=== PATIENT | female | born 1975 | race Two or more races ===

== ENCOUNTER 2020-04-27 08:46 | Outpatient (REF) | payer OTHER, SELFPAY | END 2020-04-27 08:47 | disposition home or self-care (01) | LOC: HO.LAB 08:46 | PROVIDERS: Visit Provider Internal Medicine | DX: Z20.828 Contact with and (suspected) exposure to other viral communicable diseases (principal) | CPT/HCPCS: C9803; U0003 ==

== ENCOUNTER 2020-05-11 13:03 | Outpatient (REF) | payer OTHER, SELFPAY | END 2020-05-11 13:04 | disposition home or self-care (01) | LOC: HO.LAB 13:03 | PROVIDERS: PCP Internal Medicine; Visit Provider Internal Medicine | DX: Z20.828 Contact with and (suspected) exposure to other viral communicable diseases (principal) | CPT/HCPCS: C9803; U0003 ==

== ENCOUNTER 2020-09-13 15:32 | Emergency (ER) | payer OTHER, SELFPAY ==
[2020-09-13 16:51] VITALS: BP 155/69; PULSE 85; RESP 18; TEMP 36.1; O2SAT 98; BMI 45.3
[2020-09-13 17:57] LABS: MANUAL DIFF FLAG NO
[2020-09-13 18:02] LABS: Glucose Urine UA NEG (NEG); Leukocyte Esterase Urine NEG (NEG); Nitrite Urine POS (NEG); PH 5.5 (5.0-8.0); Specific Gravity - Urine >= 1.030 (1.005-1.025); UACC Culture Trigger YES; Urine Blood NEG (NEG); Urine Ketones NEG (NEG); Urine Protein NEG (NEG-TRACE)
[2020-09-13 18:03] LABS: Appearance Urine CLEAR; Color Urine YELLOW; UPreg QC Valid YES; Urine Pregnancy NEGATIVE (NEGATIVE)
[2020-09-13 18:08] LABS: Bacteria Urine 2+ /LPF; Calcium Oxalate Crystals Urine 1+ /LPF; RBC Urine 0 /HPF (0); Squamous Epithelial Cell Urine 1+ /LPF; WBC Urine 0 /HPF (0-4)
[2020-09-13 18:24] LABS: Alanine Aminotransferase 13 U/L (0-31); Albumin Level 4.1 g/dL (3.5-5.0); Alkaline Phosphatase 76 U/L (39-117); Anion Gap 12 (12-20); Aspartate Amino Transferase 12 U/L (5-31); Basophils Percent Auto 0.5 % (0-2); Bilirubin Total 0.5 mg/dL (0.0-1.0); Blood Urea Nitrogen 10 mg/dL (9-16); Calcium 8.9 mg/dL (8.4-10.2); Carbon Dioxide 27 mmol/L (22-29); Chloride 104 mmol/L (96-108); Creatinine Clr Calc Pharmacy 117.3; Eosinophils Absolute Auto 0.2 X10*3/uL (0.0-0.4); Estimated Glomerular Filt Rate > 60; Glucose Random 93 mg/dL (60-115); Hematocrit 32.6 % (37-47); Hemoglobin 11.1 g/dl (12.0-16.0); Imm Gran Abs Auto 0.02 X10*3/uL (0.00-0.03); Imm Gran Pct Auto 0.3 % (0.0-0.4); Lipase 44 U/L (8-78); Lymphocytes Absolute Auto 2.6 X10*3/uL (1.2-4.9); Mean Corpuscular Volume 91.1 fL (80-98); Mean Platelet Volume 9.3 fL (9.4-12.3); Monocytes Absolute Auto 0.5 X10*3/uL (0.1-1.2); Monocytes Percent Auto 7.3 % (2-11); Neutrophils Absolute Auto 2.9 X10*3/uL (2.0-8.3); Neutrophils Percent Auto 46.9 % (45-73); Platelet Count 310 X10*3/uL (160-400); Potassium 3.6 mmol/L (3.3-5.1); Red Blood Count 3.58 X10*6/uL (4.20-5.50); Red Cell Distribution Width 12.7 % (11.0-16.0); Sodium 139 mmol/L (135-145); Total Protein 6.9 g/dL (6.5-8.0); White Blood Count 6.3 X10*3/uL (4.8-10.8)
== END 2020-09-13 20:10 | disposition left against medical advice (07) ==
LOC: HO.ED 20:11
PROVIDERS: Emergency Provider Emergency Medicine
DX: R10.9 Unspecified abdominal pain (principal); K59.00 Constipation, unspecified; I10 Essential (primary) hypertension
CPT/HCPCS: 36415; 80053; 81001; 81003; 81025; 83690; 85025; 87086; 87088; 87186; 99282; 99283

== ENCOUNTER → 2022-10-17 13:38 | Outpatient (BNVA) | payer OTHER, SELFPAY | PROVIDERS: PCP Internal Medicine; Visit Provider Physician Assistant Surgical ==

== ENCOUNTER → 2022-10-22 08:27 | Outpatient (BNVA) | payer OTHER, SELFPAY | PROVIDERS: PCP Internal Medicine; Visit Provider Surgery ==

== ENCOUNTER 2022-11-07 08:56 | Outpatient (REF) | payer OTHER, SELFPAY ==
--- NOTE | ~2022-11-07 | XR_ITS ---
EXAMINATION: XR CHEST CLINICAL INFORMATION: Obesity COMPARISON: None available. TECHNIQUE: 2 views of the chest were obtained. FINDINGS: No significant abnormality is noted involving the heart, lungs, mediastinum, bony thorax or soft tissues. XR/XR chest 2V IMPRESSION: Unremarkable examination.
--- NOTE | ~2022-11-07 | US_ITS ---
EXAMINATION: US COMPLETE ABDOMEN WITH LIVER ELASTOGRAPHY CLINICAL INFORMATION: Morbid obesity. COMPARISON: None available. TECHNIQUE: Real-time imaging of the abdominal viscera. Noninvasive ultrasound liver fibrosis assessment is performed using Lester ElastPQ point quantification shear wave elastography (2D-SWE) with a C5-2 MHz transducer. Multiple elastography samples are obtained. FINDINGS: PANCREAS: Limited. The visualized pancreatic head and proximal body are normal in appearance. The remainder of the pancreas is obscured from visualization by the overlying bowel gas. ABDOMINAL AORTA: The proximal, middle, and distal aortic segments are normal in caliber. INFERIOR VENA CAVA: Visualized portions are normal. LIVER: Normal. The liver demonstrates normal size, contour and echogenicity. No focal lesion or intrahepatic biliary duct dilatation. The right lobe measures 18.1 cm in length. The left lobe measures 15.3 cm in length. Portal flow is towards the liver (hepatopetal). Shear wave liver elastography median stiffness is 1.61 m/s (reference: normal median stiffness is 1.3 m/s or less). IQR/median stiffness to assess sampling precision is 0.08 (reference: good quality data set is IQR/median stiffness of 0.15 or less). GALLBLADDER: Normal. The gallbladder is physiologically distended without evidence of stones, sludge, polyps, wall thickening or pericholecystic fluid. COMMON BILE DUCT: Normal in caliber measuring 0.5 cm in diameter. RIGHT KIDNEY: Normal. No hydronephrosis. No renal calculi or focal parenchymal lesions. The kidney measures 10.7 cm in maximum dimension. LEFT KIDNEY: A 2.2 cm in maximal diameter benign, simple cyst is seen at the interpolar aspect of the left kidney. No hydronephrosis. No renal calculi or focal parenchymal lesions. The kidney measures 10.2 cm in maximum dimension. SPLEEN: Normal. The spleen measures 9.9 cm in maximum dimension. FREE FLUID: None. US/US abdomen comp w elastography IMPRESSION: 1. There is generalized increase in hepatic echotexture, consistent with fatty infiltration or hepatocellular disease. Please correlate clinically. No focal hepatic mass or intrahepatic biliary dilatation is seen. 2. Liver elastography: In the absence of other known clinical signs, measurements rule out compensated advanced chronic liver disease. If there are known clinical signs, further testing may be needed for confirmation. 3. A 2.2 cm benign, simple left renal cyst is seen, for which no imaging follow-up is recommended. REFERENCE: Society of Radiologists in Ultrasound Liver Stiffness Thresholds (2020): LIVER STIFFNESS THRESHOLDS: *Liver Stiffness equal or less than 1.3 m/s: High probability of being normal. *Liver Stiffness less than 1.7 m/s: In the absence of other known clinical signs, rules out compensated advanced chronic liver disease. *Liver Stiffness 1.7-2.1 m/s: Suggestive of compensated advanced chronic liver disease but need further test for confirmation. *Liver Stiffness over 2.1 m/s: Rules in compensated advanced chronic liver disease. *Liver Stiffness over 2.4 m/s: Suggestive of clinically significant portal hypertension. QUALITY OF DATA SET: *IQR/Median value equal or less than 0.15 implies a quality data set. *IQR/Median value over 0.15 implies a poor quality data set. SIGNIFICANT CHANGE FROM PRIOR EXAM: Significant change if liver stiffness measurement is 10% or greater from prior exam. OTHER CONSIDERATIONS: The stage of liver fibrosis may be overestimated in the setting of acute hepatitis, liver inflammation, elevated liver function tests, hepatic vascular congestion, obstructive cholestasis, non-fasting state, and infiltrative diseases such as amyloidosis and lymphoma. In some patients with NAFLD, the liver stiffness thresholds for compensated advanced chronic liver disease may be lower. In causes other than viral hepatitis and NAFLD, liver stiffness thresholds are not well established.
--- NOTE | 2022-11-07 09:00 | ECG_ITS ---
Test Reason : e66.01 Blood Pressure : / mmHG Vent. Rate : 077 BPM Atrial Rate : 077 BPM P-R Int : 152 ms QRS Dur : 082 ms QT Int : 386 ms P-R-T Axes : 073 028 044 degrees QTc Int : 436 ms Normal sinus rhythm Possible Anterior infarct , age undetermined Abnormal ECG No previous ECGs available Referred By: Ajay Orellana Electronically Signed By:Chapincito Brady
[2022-11-07 09:26] LABS: MANUAL DIFF FLAG NO
[2022-11-07 10:04] LABS: Basophils Absolute Auto 0.1 X10*3/uL (0.0-0.2); Basophils Percent Auto 0.7 % (0-2); Eosinophils Absolute Auto 0.1 X10*3/uL (0.0-0.4); Eosinophils Percent Auto 1.8 % (0-4); Hematocrit 38.9 % (37.0-47.0); Hemoglobin 12.9 g/dl (12.0-16.0); Imm Gran Abs Auto 0.02 X10*3/uL (0.00-0.03); Imm Gran Pct Auto 0.3 % (0.0-0.4); Lymphocytes Absolute Auto 2.3 X10*3/uL (1.2-4.9); Lymphocytes Percent Auto 31.8 % (20-40); Mean Corpuscular HGB Conc 33.2 g/dl (31.0-35.0); Mean Corpuscular Hemoglobin 29.8 pg (27.0-33.0); Mean Corpuscular Volume 89.8 fL (80.0-98.0); Mean Platelet Volume 9.4 fL (9.4-12.3); Monocytes Absolute Auto 0.5 X10*3/uL (0.1-1.2); Monocytes Percent Auto 6.6 % (2-11); Neutrophils Absolute Auto 4.2 x10*3/uL (2.0-8.3); Neutrophils Percent Auto 58.8 % (45-73); Platelet Count 269 X10*3/uL (160-400); Red Blood Count 4.33 X10*6/uL (4.20-5.50); Red Cell Distribution Width 13.1 % (11.0-16.0); White Blood Count 7.1 X10*3/uL (4.8-10.8)
[2022-11-07 10:11] LABS: Estimated Average Glucose 100 mg/dL; Hemoglobin A1c % 5.1 %
[2022-11-07 10:26] LABS: Alanine Aminotransferase 20 U/L (0-31); Albumin Level 4.2 g/dL (3.5-5.0); Alkaline Phosphatase 81 U/L (39-117); Anion Gap 12 (12-20); Aspartate Amino Transferase 16 U/L (5-31); Bilirubin Total 0.8 mg/dL (0.0-1.0); Blood Urea Nitrogen 14 mg/dL (9-16); C Reactive Protein 1.01 mg/dL (< or = 0.50); Calcium 9.7 mg/dL (8.4-10.2); Carbon Dioxide 24 mmol/L (22-29); Chloride 106 mmol/L (96-108); Cholesterol 203 mg/dL; Estimated Glomerular Filt Rate > 60; Glucose Random 94 mg/dL (60-115); HDL Cholesterol 42 mg/dL; Iron 94 mcg/dL (30-160); LDL Cholesterol Calculated 112 mg/dl; Percent Iron Saturation 27 % (15-50); Potassium 4.1 mmol/L (3.3-5.1); Sodium 138 mmol/L (135-145); Total Iron Binding Capacity 351 mcg/dL (228-428); Total Protein 7.3 g/dL (6.5-8.0); Triglycerides 245 mg/dL; Unsaturated Iron Binding 257 ug/dL
[2022-11-07 11:06] LABS: Ferritin 45 ng/mL (10-250); TSH reflex Free T4 1.01 uIU/mL (0.32-4.0); Vitamin B12 1881 pg/mL (200-900); Vitamin D 25-OH Total 26.2 ng/mL (>30)
[2022-11-07 11:46] LABS: Insulin 19 uU/mL (2-29)
[2022-11-08 22:24] LABS: Calcium (PTHI) 9.9 mg/dL (8.6-10.2); PTHI 30 pg/mL (16-77)
[2022-11-09 12:25] LABS: H Pylori Breath Test Negative (Negative)
[2022-11-11 15:28] LABS: Zinc 79 mcg/dL (60-130)
[2022-11-13 17:29] LABS: Vitamin A 43 mcg/dL (38-98)
[2022-11-14 15:23] LABS: Vitamin B1 9 nmol/L (8-30)
== END 2022-11-07 08:57 | disposition home or self-care (01) ==
LOC: HO.US 08:56
PROVIDERS: PCP Internal Medicine; Visit Provider Surgery
DX: E66.01 Morbid (severe) obesity due to excess calories (principal); G47.30 Sleep apnea, unspecified; I10 Essential (primary) hypertension
CPT/HCPCS: 36415; 71046; 76705; 76981; 80053; 80061; 82306; 82607; 82728; 82746; 83013; 83036; 83525; 83540; 83970; 84425; 84443; 84590; 84630; 85025; 86140; 93005; 99211

== ENCOUNTER → 2022-11-16 08:38 | Outpatient (BNVA) | payer OTHER, SELFPAY | PROVIDERS: PCP Internal Medicine; Visit Provider Surgery ==

== ENCOUNTER → 2022-11-19 08:53 | Outpatient (REF) | payer OTHER, SELFPAY ==
--- NOTE | ~2022-11-19 | NM_ITS ---
Myocardial perfusion study Indication: Exercise Myocardial perfusion study Indication: Abnormal EKG to evaluate for myocardial ischemia Technique: The patient was brought in for an exercise perfusion study on 11/19/2022. Patient performed exercise as per Magdy protocol and was injected 40 mCi of sestamibi was given intravenously one target HR was achieved. Images were obtained using the SPECT gamma camera interlaced with the gating device. Images were obtained in supine position. Resting perfusion study was performed on 11/22/2022. Patient was administered 40 mCi of sestamibi intravenously at rest. Images were then obtained in supine position. Images obtained with and without CT attenuation. Total DLP 207 mGy-cm. Images were processed with the software and compared side to side in short axis, horizontal long axis and vertical long axis views. Findings: The stress perfusion study showed non attenuated images show normal uptake of radiotracer in all segments of LV myocardium. Attenuated corrected images show mildly reduced uptake in the septum and the distal anterior and apical wall of the LV myocardium.. The gated study shows normal LV systolic function with calculated LVEF of 68%. LV cavity is normal in size. The gated study shows normal systolic wall thickening and contraction of all segments. There is no transient ischemic dilation. Resting study shows non attenuated images show overall normal uptake in the myocardium. Attenuated corrected images show uptake in the septum and distal anterior wall. Gating at rest reveals normal systolic wall motion with ejection fraction at 48%, although visually appears to be normal range. The findings are consistent with normal myocardial perfusion on non attenuated images. NM/NM gail perf SPECT rest & str Impression: 1. Normal myocardial perfusion 2. Gated LVEF is 68% 3. Transient ischemic dilatation not present Stress EKG is negative for ischemia
--- NOTE | 2022-11-19 08:55 | CA_ITS ---
Acquisition Time: 2022-11-19 09:09:49 Total Exercise Time: 00:05:00 Test Indications: ABN EKG Medications: SEE H Protocol: SURINDER Max HR: 155 BPM 90% of Pred: 172 BPM Max BP: 150/080 mmHG Max Work Load: 5.8 METS Exercise stress test with exercise 5 min of Surinder stage 1 ( with incline up to 12% for last 2 min and speed up to 2 MPH for last 45 sec) achieving 90% MPHR, 5.8 METs, with moderate shortness of breath and need to stop, no chest discomfort, without arrythmia, with normotensive response to exercise, without EKG changes meeting criteria for ischemia. Nuclear images pending. Test reviewed with Dr Rao. Referred By: Ajay Orellana Overread By: MARLON MARTINEZ
== END ==
LOC: HO.CARD 08:53
PROVIDERS: PCP Internal Medicine; Visit Provider Surgery
DX: R94.31 Abnormal electrocardiogram [ECG] [EKG] (principal)
CPT/HCPCS: 78452; 93017; A9500

== ENCOUNTER 2022-11-29 08:29 | Outpatient (REF) | payer OTHER, SELFPAY ==
--- NOTE | ~2022-11-29 | FL_ITS ---
EXAMINATION: XR FLUOROSCOPY UPPER GI WITH AIR CLINICAL INFORMATION: Morbid/severe obesity due to excess calories COMPARISON: None available. TECHNIQUE: Routine upper GI contrast study was performed. FINDINGS: Following oral administration of thick barium and effervescent granules, there is normal propagation involving the bolus from the oral cavity through the pharynx, esophagus into stomach without obstruction, narrowing or stricture. On placing patient supine and prone lying, the course, caliber and peristalsis of the stomach, duodenal bulb and sweep is normal. The mucosal pattern of the stomach and duodenum is normal. There is mild gastroesophageal reflux without hiatal hernia. FLUOROSCOPY TIME: 1.6 minutes DOSE AREA PRODUCT: 41.951 uGy-m2 (microgray-meter squared) FL/FL upper GI w air IMPRESSION: Mild gastroesophageal reflux without hiatal hernia.
== END 2022-11-29 08:30 | disposition home or self-care (01) ==
LOC: HO.XRAY 08:29
PROVIDERS: PCP Internal Medicine; Visit Provider Surgery
DX: E66.01 Morbid (severe) obesity due to excess calories (principal); G47.30 Sleep apnea, unspecified; I10 Essential (primary) hypertension
CPT/HCPCS: 74246

== ENCOUNTER 2022-12-03 16:12 | Outpatient (AMB) | payer OTHER, SELFPAY ==
--- NOTE | 2022-12-03 16:16 | MHC.WMTHER ---
Intake Intake Visit Reasons: VIDEO Intake Allergies acetaminophen [From Percocet] Adverse Reaction (Verified 11/07/22 10:41) Anxiety oxycodone [From Percocet] Adverse Reaction (Verified 11/07/22 10:41) Anxiety PFSH Medical History (Updated 11/07/22 @ 15:44 by Ajay Orellana MD) Hypertension Morbid obesity Sleep apnea Surgical History (Updated 10/17/22 @ 13:59 by MARCY Gaona) Hx of appendectomy Hx of section Hx of right knee surgery Hx of umbilical hernia repair Family History (Updated 10/17/22 @ 14:00 by MARCY Gaona) Mother No problems noted. Father Cancer Sister No problems noted. Sister No problems noted. Son No problems noted. Son No problems noted. Son No problems noted. Daughter No problems noted. Social History (Updated 10/17/22 @ 13:58 by MARCY Gaona) Alcohol intake: never Patient Tobacco Use Status: Never used Tobacco Behavioral Health Assessment Weight Management Therapy Therapy Notes Details PT is a 47 year old -Female who presents for assessment as part of surgical Weight-loss management program. PT denied any mental health diagnosis or even been in counseling services for herself; she disclosed past involvement in marriage therapy while went trough divorce. Also denies any concern with SI, self/other-harm, and/or any previous mental health crisis or past hospitalizations for mental health. PT denied emotional/stress eating and scores in BES showed minimal risk for binge eating. PT is cleared but will meet again for support with adjustment to meal plan, and habit change. Presenting Concerns Referral Source P Provider Reason for referral Completion of behavioral health assessment as part of process for weight-loss surgery. Precipitating Event Medical issues. Living Situation Current Living Situation Rent At risk of losing current housing? No Satisfied with current living situation? Yes Comments PT lives alone. Food/Weight/Diet Expectations of change PT wants to improve her health, and hopes to be at 150-170Lbs. (Unclear expectations) History/Relationship with food PT reports she loves food, as , she eats bread a lot. She always have 2-3 meals. Favorite meal is breakfast (eggs, rick, Wallisian muffin, coffee with cream and Splenda). Usually skip lunch. For dinner she would have chicken/rice/salad, tacos, fried foods. Was a soda drinker and she loves sweets, specially chocolate. Pt reports hx of desires to chew on something when stressed (usually eats tortilla chips or almonds). History/Relationship with weight She started gaining weight on mid 's after she started using the shot for control. But before that she was always under 140Lbs. In 2007 she was at 380Lbs. About a year ago she went down to 220Lbs, but started eating as usual again leading to weight gain. History/Relationship with dieting -Medical Weight management at [facility] in 2007, she was on medication combined with diet and exercise and was able to loss over 100Lbs. - Tried intermittent fasting, not eating after 5pm, diet/exercise. It has worked well for her but after couple months she goes back to normal eating habits. - She is following the meal plan, however on Sundays, when tired she feels she deserves a good meal so ari will have something different. Binge Eating Do you frequently eat large amounts of food in short periods of time, not feeling physically hungry? No Do you feel out of control when you eat a large amount of food in a short period of time? No Do you eat large amounts of food rapidly and typically alone? No Night Eating Do you wake up at least once during the night to eat? No If you wake up in the night, do you find that it is necessary to eat something in order to fall back asleep? No Do you have little or no appetite in the morning and feel very hungry in the evening, often overeating between dinner and when you go to bed? No Social History Family history and relationship from 3 years ago. She has 4 adult children (31, 29,23 and 20). They are working on re-building the relationship as separation was hard for everyone. Raised by maternal grandparents, both . Bio-mother is alive but she don't have communication. Bio-father and they had a great relationship. She has 2 sisters from mom's side, from dad's side she has 3 sisters. 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 Developmental history and status within normal limits. Social support Sister, some friends and comadre. Daughter who had bariatric surgery in august. Community support None. Anglican/Spirituality Roman Catholic. Cultural/Ethnic information . Born in [place]. Bilingual. Legal Involvement and History Current or historical involvement with the legal system? 10 years ago. Education Highest grade completed GED. 2 years College. Preferred learning style Learn by doing Currently enrolled in educational program? No Interested in further educational program? Yes (Would like to finish nursing degree but is not sure. 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 ) and Other ([employer].) Wants help to find employment? No Meaningful activities [place], travel, family activities. Financial Situation Describe current financial situation Occasional struggle Financial assistance? Food [place] Service Service? No Mental Health and Addiction Treatment Current/Past substance abuse? Yes Comments Used cannabis younger. Does vaping once in a while when stressed. (uses cannabis oil). Current/Past addictive behavior concerns? No Psychiatric history Never been in counseling individually, she went to couples counseling when she 3 years ago for couples sessions. Never hospitalized for mental health, and/or diagnosed with any MH disorder/illness. PT denies any hx of SI and/or Self/other-harm. Medical and Physical Health Summary Additional Medical History not covered in history None reported. Sexual History concerns None reported. Physical exam in the last year? Yes Pain Screening Current pain? No Pain in the last few months? No Medications Is the patient compliant with medications? Yes Does the patient have Torres Guardian in place? Not applicable Does the patient use complimentary health approaches? No Trauma/Abuse History History of trauma? No Questionnaires PHQ-9 Over the last 2 weeks, how often have you been bothered by any of the following problems? 1. Little interest or pleasure in doing things: not at all 2. Feeling down, depressed, or hopeless: not at all 3. Trouble falling or staying asleep, or sleeping too much: not at all 4. Feeling tired or having little energy: nearly every day 5. Poor appetite or overeating: not at all 6. Feeling bad about yourself - or that you are a failure or have let yourself or your family down: not at all 7. Trouble concentrating on things, such as reading the newspaper or watching television: not at all 8. Moving or speaking so slowly that other people could have noticed. Or the opposite - being so fidgety or restless that you have been moving around a lot more than usual: not at all 9. Thoughts that you would be better off or of hurting yourself in some way: not at all Total score: 3 Depression Screening Interpretation: Negative Source: Developed by Drs. Ulices Saucedo, Rebecca Appiah, Kasi Smith and colleagues, with an educational juju from [employer]. Binge Eating Scale Group 1 A. I don't feel self-conscious about my wt. or body size when I'm with others. B. I feel concerned about how I look to others, but it normally does not make me fell disappointed with myself C. I do get self-conscious about my appearance and wt. which makes me feel disappointed in myself. D. I feel very self-conscious about my wt. and frequently I feel intense shame and disgust for myself. I try to avoid social contacts because of my self-consciousness. Response Group 1: B Group 2 A. I don't have any difficulty eating slowly in the proper manner. B. Although I seem to gobble down foods, I don't end up feeling stuffed because of eating to much. C. At times, I tend to eat quickly and then, I feel uncomfortably full afterwards. D. I have the habit of bolting down my food, without really chewing it. When this happens I usually feel uncomfortably stuffed because I've eaten to much. Response Group 2: A Group 3 A. I feel capable to control my eating urges when I want to. B. I feel like I have failed to control my eating more than the average person. C. I feel utterly helpless when it comes to feeling in control of my eating urges. D. Because I feel so helpless about controlling my eating I have become very desperate about trying to get control. Response Group 3: A Group 4 A. I don't have the habit of eating when I'm bored. B. I sometimes eat when I'm bored, but often I'm able to get busy and get my mind off food. C. I have a regular habit of eating when I'm bored, but occasionally, I can use some other activity to get my mind off eating. D. I have a strong habit of eating when I'm bored. Nothing seems to help me breath the habit. Response Group 4: B Group 5 A. I'm usually physically hungry when I eat something. B. Occasionally, I eat something on impulse even though I really am not hungry. C. I have the regular habit of eating foods, that I might not really enjoy, to satisfy a hungry feeling even though physically, I don't need the food. D. Although I'm not physically hungry, I get a hungry feeling in my mouth that only seems to be satisfied when I eat a food, like sandwich, that fills my mouth. Sometimes, when I eat the food to satisfy my mouth hunger, I then spit the food out so I won't gain weight. Response Group 5: B Group 6 A. I don't feel any guilt or self-hate after I overeat. B. After I overeat, occasionally I feel guilt or self-hate. C. Almost all the time I experience strong guilt or self-hate after I overeat. Response Group 6: A Group 7 A. I don't lose total control of my eating when dieting even after periods when I overeat. B. Sometimes when I eat a forbidden food on a diet, I feel like I blew it and eat even more. C. Frequently, I have the habit of saying to myself, I've blown it now, why not go all the way, when I overeat on a diet. When that happens I eat more. D. I have a regular habit of starting a strict diets for myself but I break the diets by going on an eating binge. My life seems to be either a feast or famine. Response Group 7: A Group 8 A. I rarely eat so much food that I feel uncomfortably stuffed afterwards. B. Usually about once a month, I each such a quantity of food, I end up feeling very stuffed. C. I have regular periods during the month when I eat large amounts of food, either at mealtime or at snacks. D. I eat so much food that I regularly feel quite uncomfortable after eating and sometimes a bit nauseous. Response Group 8: C Group 9 A. My level of calorie intake does not go up very high or go down very low on a regular basis. B. Sometimes after I overeat, I will try to reduce my caloric intake to almost nothing to compensate for the excess calories I've eaten. C. I have a regular habit of overeating during the night. It seems that my routine is not to be hungry in the morning but overeat in the evening. D. In my adult years, I have had week-long periods where I practically starve myself. This follows periods when I overeat. It seems I live a life of either feast or famine. Response Group 9: A Group 10 A. I usually am able to stop eating when I want to. I know when enough is enough. B. Every so often, I experience a compulsion to eat which I can't seem to control. C. Frequently, I experience strong urges to eat which I seem unable to control, but at other times I can control my eating urges. D. I feel incapable of controlling urges to eat. I have a fear of not being able to stop eating voluntarily. Response Group 10: A Group 11 A. I don't have any problem stopping eating when I feel full. B. I usually can stop eating when I feel full but occasionally overeat leaving me feeling uncomfortably stuffed. C. I have a problem stopping eating once I start and usually I feel uncomfortably stuffed after I eat a meal. D. Because I have a problem not being able to stop eating when I want, I sometimes have to induce vomiting to relieve my stuffed feeling. Response Group 11: A Group 12 A. I seem to eat just as much when I'm with others, Family social gatherings as when I'm by myself. B. Sometimes, when I'm with other persons, I don't eat as much as I want to eat because I'm self-conscious about my eating. C. Frequently, I eat only a small amount of food when others are present, because I'm very embarrassed about my eating. D. I feel so ashamed about overeating that I pick times to overeat when I know no one will see me. I feel like a closet eater. Response Group 12: A Group 13 A. I eat three meals a day with only an occasional between meal snack. B. I eat 3 meals a day, but I also normally snack between meals. C. When I am snacking heavily, I get in the habit of skipping regular meals. D. There are regular periods when I seem to be continually eating, with no planned meals. Response Group 13: A (PT reports that none apply, as she has 2 meals at day, he skips lunch and doesn't snack. ) Group 15 A. I don't think about food a great deal. B. I have strong craving for food but they last only for brief periods of time. C. I have days when I can't seem to think about anything else but food. D. Most of my days seem to be pre-occupied with thoughts about food. I feel like I live to eat. Response Group 15: C Group 16 A. I usually know whether or not I'm physically hungry. I take the right portion of food to satisfy me. B. Occasionally, I feel uncertain about knowing whether or not I'm physically hungry. A these times it's hard to know how much food I should take to satisfy me. C. Even though I might know how many calories I should eat, I don't have any idea what is a normal amount of food for me. Response Group 16: A Binge Eating Score: 7 Score less than 17 Minimal Risk Score between 18-26 Moderate Risk Score between 27-46 High Risk Assessment & Plan Assessment & Plan (1) Adjustment disorder: Code(s): F43.20 - Adjustment disorder, unspecified Qualifiers: Adjustment disorder type: unspecified type Qualified Code(s): F43.20 - Adjustment disorder, unspecified Plan PT showers low scores in BES indicating minimal risk for binge eating behavior, also PHQ-9 did not showed any active depression and overall mental status exam is within normal limits. PT is cleared from the behavioral health stand point, however will F/up in 3-4 weeks for support with habit change and following meal plan. Telehealth Telehealth Location of provider rendering services: other (Home office. [place], [place].) Location of patient: address on file Patient Identification confirmed using: Name, : Yes Telehealth method: video Patient verbally consented to treatment: Yes Patient verbally consented to billing insurance company: Yes Patient informed of any privacy concerns related to visit: Yes Minutes spent on Phone/Video with Pt.: 50 Coding Level of Care Code New Pt Tele Psy Diag Eval ([id number]) Patient Type New Diagnoses Adjustment disorder F43.20 Adjustment disorder type: unspecified type Time Spent (min) 50 Comment 4:10-5:00pm
== END 2022-12-03 17:06 | disposition home or self-care (01) ==
LOC: HO.HBST 16:12
PROVIDERS: PCP Internal Medicine; Visit Provider Counselor Mental Health
DX: F43.20 Adjustment disorder, unspecified (principal)
CPT/HCPCS: 90791

== ENCOUNTER → 2022-12-03 16:12 | Outpatient (BNVA) | payer OTHER, SELFPAY | PROVIDERS: PCP Internal Medicine; Visit Provider Counselor Mental Health ==

== ENCOUNTER → 2022-12-10 10:58 | Outpatient (REF) | payer OTHER, SELFPAY ==
--- NOTE | 2022-12-10 11:00 | CA_ITS ---
Transthoracic Echocardiogram Patient (Last, First, Middle): Ewelina Rasmussen, Gender: Female Date of : 1975 Age: 47 Procedure Date: 12/10/2022 Procedure Type: Transthoracic Echocardiogram Location: OP Height: 157.48 cm Weight: 117.94 kg BSA: 2.14 m2 Heart Rate: bpm BP: 110 / 70 mmHg Sales Order Specialist: RENE Referring MD: Ajay Orellana MD Policewoman: Anam Garrido MD Symptoms: R94.31 - Abnormal electrocardiogram [ECG] [EKG] Study Quality: Fair ECG Rhythm: Sinus Conclusions: - 1. Normal LV systolic function with LVEF of 60 65% 2. Mildly dilated left atrium 3. Normal cardiac valvular Dopplers 4. Normal RV systolic pressure 5. No gross pericardial effusion Findings Left Ventricle Normal left ventricular size, thickness, and systolic function. The visually estimated ejection fraction is between 60-65%. Diastolic function is normal for age. Peak GLS is -21.7%, within normal limits Right Ventricle Normal right ventricular cavity size and systolic function. Atria The left atrium is mildly dilated. Interatrial shunt cannot be excluded. The right atrium is likely dilated. Aortic Valve Normal aortic valve structure and function. There is no aortic valve stenosis. There is no aortic valve regurgitation. Mitral Valve Normal mitral valve structure and function. There is trace mitral valve regurgitation. There is no mitral valve stenosis. Pulmonic Valve The pulmonic valve was not well visualized. Tricuspid Valve Normal tricuspid valve structure. There is trace tricuspid valve regurgitation. The right ventricular systolic pressure is normal. The right ventricular systolic pressure is 22 mmHg. Normal right atrial pressure. There is no evidence of pulmonary hypertension. Great Vessels All visible segments of the aorta are normal in size. The pulmonary artery was not well visualized. Venous The inferior vena cava is normal in size and collapses greater than 50% with inspiration. Pericardium/Pleural There is no evidence of pericardial effusion. Prior Study Comparison No prior study available for comparison. Recommendations, Care & Conclusions Recommend contrast study to evaluate intracardiac shunting. Measurements 2D Linear Measurements IVSd: 1.01 0.6-0.9/0.6-1.0 cm LVIDd: 4.74 3.9-5.3/4.2-5.9 cm LVIDd Index: 2.21 2.4-3.2/2.2-3.1 cm/m2 LVIDs: 2.97 2.0-3.6 cm LVPWd: 1.04 0.7-1.1 cm LA Diam: 3.40 2.7-3.8/3.0-4.0 cm LAIDs Index: 1.59 1.5-2.3 cm/m2 LV Mass: 214.81 67-162/88-224 g LV Mass Index: 100.38 43-95/49-115 g/m2 LVOT Diam: 2.10 3.0+(-)1.3 cm 2D Systolic Function EF 4C: 57.60 >55% EF 2C: 65.10 >55% EF BiP: 61.90 >55% Mitral Valve MV Pk E: 1.04 MV PK A: 0.95 MV Decel Time: 195.00 E/A: 1.10 E'Lateral: 12.00 E'Medial: 7.94 E/E' Med: 13.10 E/E' Lat: 8.70 PHT: 57.00 MVA PHT: 3.86 Decel [place]: 5.34 Aortic Valve AoV Pk Demetrio: 1.49 AoV Mn Demetrio: 1.07 AoV VTI: 0.34 AoV Pk Grad: 9.00 Aov Mn Grad: 5.00 DAMIAN Cont.VTI: 2.30 LVOT LVOT Pk Demetrio: 1.00 LVOT Mn Demetrio: 0.70 LVOT VTI: 0.23 LVOT Pk Grad: 4.00 LVOT Mn Grad: 2.00 LVOT Diam: 2.10 LVOT Area: 3.46 Diastolic Function MV Pk E: 1.04 MV Pk A: 0.95 E/A: 1.10 E'Medial: 7.94 E/E' Med: 13.10 E' Laterial: 12.00 E/E' Lat: 8.70 Right Ventricle TAPSE (mm): 27.80 TVS' Demetrio: 16.20 Tricuspid Valve TR Pk Demetrio: 2.19 TR Pk Grad: 19.00 RA Press: 3.00 RVSP: 22.00 Great Vessels Aorta Sinus of Valsalva: 3.26 2.0-3.[address] [place]: 2.48 1.7-3.4 cm Ao Asc: 3.10 2.1-3.4 cm Updated in Other Vendor System with Status of Final Anam Garrido MD electronically signed on 12/11/2022 12:11:27 PM with status of Final
== END ==
LOC: HO.CARD 10:58
PROVIDERS: PCP Internal Medicine; Visit Provider Surgery
DX: R94.31 Abnormal electrocardiogram [ECG] [EKG] (principal)
CPT/HCPCS: 93306; 93356

== ENCOUNTER → 2022-12-10 11:00 | Outpatient (BNV) | payer OTHER, SELFPAY | PROVIDERS: PCP Internal Medicine; Visit Provider Internal Medicine Cardiovascular Disease | DX: R94.31 Abnormal electrocardiogram [ECG] [EKG] (principal) | CPT/HCPCS: 93306 ==

== ENCOUNTER → 2022-12-26 09:58 | Outpatient (REF) | payer OTHER, SELFPAY ==
--- NOTE | 2022-12-26 10:01 | CA_ITS ---
Transthoracic Echocardiogram Limited Patient (Last, First, Middle): Ewelina Rasmussen, Gender: Female Date of : 1975 Age: 47 Procedure Date: 12/26/2022 Procedure Type: Transthoracic Echocardiogram Limited Location: OP Height: 157.48 cm Weight: 117.94 kg BSA: 2.14 m2 Heart Rate: 69 bpm BP: 115 / 65 mmHg Tapper Helper: MARIIA Referring MD: Siva GRAHAM Service Order Dispatcher: Anam Garrido MD Symptoms: R94.31 - Abnormal electrocardiogram [ECG] [EKG] Study Quality: Adequate/Limited with Bubble study ECG Rhythm: Sinus Conclusions: - No clear evidence of PFO Findings Atria There is no evidence of interatrial shunt by agitated saline. Updated in Other Vendor System with Status of Final Anam Garrido MD electronically signed on 12/27/2022 12:43:07 PM with status of Final
== END ==
LOC: HO.CARD 09:58
PROVIDERS: PCP Internal Medicine; Visit Provider Physician Assistant Surgical
DX: R94.31 Abnormal electrocardiogram [ECG] [EKG] (principal)
CPT/HCPCS: 93308

== ENCOUNTER → 2022-12-26 10:01 | Outpatient (BNV) | payer OTHER, SELFPAY | PROVIDERS: PCP Internal Medicine; Visit Provider Internal Medicine Cardiovascular Disease | DX: R94.31 Abnormal electrocardiogram [ECG] [EKG] (principal) | CPT/HCPCS: 93308 ==

== ENCOUNTER 2023-01-09 13:00 | Outpatient (AMB) | payer OTHER, SELFPAY ==
--- NOTE | 2023-01-09 13:08 | A.OFFWM_ITS ---
Intake Intake Visit Reasons: VIDEO f/u Allergies acetaminophen [From Percocet] Adverse Reaction (Verified 11/07/22 10:41) Anxiety oxycodone [From Percocet] Adverse Reaction (Verified 11/07/22 10:41) Anxiety PFSH Medical History (Updated 11/07/22 @ 15:44 by Ajay Orellana MD) Hypertension Morbid obesity Sleep apnea Surgical History (Updated 10/17/22 @ 13:59 by MARCY Gaona) Hx of appendectomy Hx of section Hx of right knee surgery Hx of umbilical hernia repair Family History (Updated 10/17/22 @ 14:00 by MARCY Gaona) Mother No problems noted. Father Cancer Sister No problems noted. Sister No problems noted. Son No problems noted. Son No problems noted. Son No problems noted. Daughter No problems noted. Social History (Updated 10/17/22 @ 13:58 by MARCY Gaona) Alcohol intake: never Patient Tobacco Use Status: Never used Tobacco Behavioral Health Assessment Weight Management Therapy Therapy Notes Details PT presents for a follow up. PT reports she feels stressed, she has been traveling so her diet/exercise plan has been affected, as she's not been exercising regularly. INTERVENTIONS: Active listening, processed barriers to commit to meal plan and exercise routine, validated feelings while gently challenge her goals vs expe ctations. Problem solving exercise creating ideas about how she can remain consistent while traveling. Processed stresors around recent study and recommended to share with doctor concerns and ask for these results. RESPONSE: open and engaged. PT created a plan for this week to get back to healthy habits. Also, shared ideas to remain consistent at the next trip in couple days. PLAN: F/up in about a month. PT is cleared but will meet again for support with adjustment to meal plan, and habit change. Presenting Concerns Referral Source WMP Provider Reason for referral Completion of behavioral health assessment as part of process for weight-loss surgery. Precipitating Event Medical issues. Living Situation Current Living Situation Rent At risk of losing current housing? No Satisfied with current living situation? Yes Comments PT lives alone. Food/Weight/Diet Expectations of change PT wants to improve her health, and hopes to be at 150- 170Lbs. (Unclear expectations) History/Relationship with food PT reports she loves food, as , she eats bread a lot. She always have 2-3 meals. Favorite meal is breakfast (eggs, rick, Indonesian muffin, coffee with cream and Splenda). Usually skip lunch. For dinner she would have chicken/rice/salad, tacos, fried foods. Was a soda drinker and she loves sweets, specially chocolate. Pt reports hx of desires to chew on something when stressed (usually eats tortilla chips or almonds). History/Relationship with weight She started gaining weight on mid 's after she started using the shot for control. But before that she was always under 140Lbs. In 2007 she was at 380Lbs. About a year ago she went down to 220Lbs, but started eating as usual again leading to weight gain. History/Relationship with dieting -Medical Weight management at [facility] in 2007, she was on medication combined with diet and exercise and was able to loss over 100Lbs. - Tried intermittent fasting, not eating after 5pm, diet/exercise. It has worked well for her but after couple months she goes back to normal eating habits. - She is following the meal plan, however on Sundays, when tired she feels she deserves a good meal so ari will have something different. Binge Eating Do you frequently eat large amounts of food in short periods of time, not feeling physically hungry? No Do you feel out of control when you eat a large amount of food in a short period of time? No Do you eat large amounts of food rapidly and typically alone? No Night Eating Do you wake up at least once during the night to eat? No If you wake up in the night, do you find that it is necessary to eat something in order to fall back asleep? No Do you have little or no appetite in the morning and feel very hungry in the evening, often overeating between dinner and when you go to bed? No Social History Family history and relationship from 3 years ago. She has 4 adult children (31, 29,23 and 20). They are working on re-building the relationship as separation was hard for everyone. Raised by maternal grandparents, both . Bio-mother is alive but she don't have communication. Bio-father and they had a great relationship. She has 2 sisters from mom's side, from dad's side she has 3 sisters. Parental/Familial pharmacy informaticist obligations None. Developmental history and status within normal limits. Social support Sister, some friends and comadre. Daughter who had bariatric surgery in august. Community support None. [employer]. Cultural/Ethnic information . Born in [place]. Bilingual. Legal Involvement and History Current or historical involvement with the legal system? 10 years ago. Education Highest grade completed GED. 2 years College. Preferred learning style Learn by doing Currently enrolled in educational program? No Interested in further educational program? Yes (Would like to finish nursing degree but is not sure. 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 ) and Other ([employer].) Wants help to find employment? No Meaningful activities [place], travel, family activities. Financial Situation Describe current financial situation Occasional struggle Financial assistance? Food [place] Service Service? No Mental Health and Addiction Treatment Current/Past substance abuse? Yes Comments Used cannabis younger. Does vaping once in a while when stressed. (uses cannabis oil). Current/Past addictive behavior concerns? No Psychiatric history Never been in counseling individually, she went to couples counseling when she 3 years ago for couples sessions. Never hospitalized for mental health, and/or diagnosed with any MH disorder/illness. PT denies any hx of SI and/or Self/other-harm. Medical and Physical Health Summary0 Additional Medical History not covered in history None reported. Sexual History concerns None reported. Physical exam in the last year? Yes Pain Screening Current pain? No Pain in the last few months? No Medications Is the patient compliant with medications? Yes Does the patient have Torres Guardian in place? Not applicable Does the patient use complimentary health approaches? No Trauma/Abuse History History of trauma? No Assessment & Plan Assessment & Plan (1) Adjustment disorder: Code(s): F43.20 - Adjustment disorder, unspecified Qualifiers: Adjustment disorder type: unspecified type Qualified Code(s): F43.20 - Adjustment disorder, unspecified Plan PT is cleared from the behavioral health stand point, however will F/up in about a month for support with habit change and following meal plan. Telehealth Telehealth Location of provider rendering services: other (Home office. [place], [place].) Location of patient: address on file Patient Identification confirmed using: Name, : Yes Telehealth method: video Patient verbally consented to treatment: Yes Patient verbally consented to billing insurance company: Yes Patient informed of any privacy concerns related to visit: Yes Minutes spent on Phone/Video with Pt.: 45 Coding Level of Care Code Established Pt Tele Psytx 45 mins (32925) Patient Type Established Diagnoses Adjustment disorder F43.20 Adjustment disorder type: unspecified type Time Spent (min) 45 Comment 1:00-1:45pm
== END 2023-01-09 13:50 | disposition home or self-care (01) ==
LOC: HO.HBST 13:06
PROVIDERS: PCP Internal Medicine; Visit Provider Counselor Mental Health
DX: F43.20 Adjustment disorder, unspecified (principal)
CPT/HCPCS: 90834

== ENCOUNTER → 2023-01-09 13:00 | Outpatient (BNVA) | payer OTHER, SELFPAY | PROVIDERS: PCP Internal Medicine; Visit Provider Counselor Mental Health ==

== ENCOUNTER 2023-01-10 13:37 | Outpatient (AMB) | payer OTHER, SELFPAY ==
--- NOTE | 2023-01-10 13:06 | A.OFFVIS_ITS ---
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 she likes hilario bars and shakes, has no concerns or issues today. SW online classes: completed she knows she has to give up coffee immediately after surgery and is OK with it. Pt emotional as she speaks about her concerns with her cardiac testing. Her sister 3 days after her bariatric surgery as a result of a heart attack Previous weight loss methods attempted 2009 was nearly 400# and went to [facility] - took Adipex and went from size 48 to size 13 . ended up gained the weight back due to emotional eating later. [facility] Dietary counseling reduction Meal frequency regular: breakfast, dinner (chicken, salad ) and snacks and never: lunch Lifestyle Eating out 4 or more times/week (every meal ) Food frequency Fruit: daily, Vegetables: daily, Grains/pasta/breads/cereal (carbs): daily, Meats/poultry/fish (protein): daily, Meat substitutes/nuts/seeds/legumes: daily, Water: daily (with lemon and mint ), Soda: never, Juice: never and Coffee: daily (coffee once daily in the AM and tea ) Diagnosis Nutrition problem #1 overweight/obesity As related to (etiology) #1 excess energy intake and physical inactivity As evidenced by (sign/symptom) #1 high BMI Monitoring/Goals Nutrition problem monitoring total energy intake, level of knowledge/skill, total PRO intake, total CHO intake and weight Outcome progress progressing Learning/Education Readiness to learn excellent Stages of change action Educational materials provided Yes Most Recent Diabetes Results: No Data to Display [facility] Medical History (Updated 11/07/22 @ 15:44 by Ajay Orellana MD) Hypertension Morbid obesity Sleep apnea Surgical History (Updated 10/17/22 @ 13:59 by MARCY Gaona) Hx of appendectomy Hx of section Hx of right knee surgery Hx of umbilical hernia repair Family History (Updated 10/17/22 @ 14:00 by MARCY Gaona) Mother No problems noted. Father Cancer Sister No problems noted. Sister No problems noted. Son No problems noted. Son No problems noted. Son No problems noted. Daughter No problems noted. Social History (Updated 10/17/22 @ 13:58 by MARCY Gaona) Alcohol intake: never Patient Tobacco Use Status: Never used Tobacco Assessment & Plan Assessment & Plan (1) Morbid obesity: Code(s): E66.01 - Morbid (severe) obesity due to excess calories Patient Instructions: Patient is cleared from a nutrition standpoint for bariatric surgery. Educational requirements have been completed. Reviewed vitamin supplementation and commitment to protein shake for several months post surgery. Encouraged communication with office as needed Telehealth Telehealth Location of provider rendering services: practice address Location of patient: other (car, parked) Patient Identification confirmed using: Name, : Yes Telehealth method: video Patient verbally consented to treatment: Yes Patient verbally consented to billing insurance company: Yes Patient informed of any privacy concerns related to visit: Yes Minutes spent on Phone/Video with Pt.: 30 Coding Level of Care Code Nutr Indiv Intake (97382) Diagnoses Morbid obesity E66.01 Time Spent (min) 35
== END 2023-01-10 13:42 | disposition home or self-care (01) ==
LOC: HO.HBS 13:37
PROVIDERS: PCP Internal Medicine; Visit Provider Dietitian, Registered
DX: E66.01 Morbid (severe) obesity due to excess calories (principal)

== ENCOUNTER → 2023-01-10 13:37 | Outpatient (BNVA) | payer OTHER, SELFPAY | PROVIDERS: PCP Internal Medicine; Visit Provider Dietitian, Registered | DX: E66.01 Morbid (severe) obesity due to excess calories (principal); Z71.3 Dietary counseling and surveillance | CPT/HCPCS: 97802 ==

== ENCOUNTER 2023-01-11 10:03 | Outpatient (AMB) | payer OTHER, SELFPAY ==
--- NOTE | 2023-01-11 18:05 | A.OFFVIS_ITS ---
Intake VS Expanded 01/11/23 18:10 Height 5 ft 2 in Weight 260 lb BMI 47.5 Body Fat 168.7 Body Fat Percentage 64.9 Free Fat Mass 91.2 Visceral Mass 29 Water Mass 62.4 BMR 1,259 Intake Visit Reasons: TV Follow Up SWL Allergies acetaminophen [From Percocet] Adverse Reaction (Verified 11/07/22 10:41) Anxiety oxycodone [From Percocet] Adverse Reaction (Verified 11/07/22 10:41) Anxiety HPI TV Follow Up SWL HPI Details Start time: 12.20pm, End time: 12.40pm I spent 15 minutes speaking with the patient on the phone plus an additional 5 minutes reviewing and updating records for a total of 20 minutes HPI Comments History of Present Illness Details Overall weight loss: 7.2lbs, or 2.69% TBWL Was on vacation and was not able to follow the plan correctly [facility] Medical History (Updated 11/07/22 @ 15:44 by Ajay Orellana MD) Hypertension Morbid obesity Sleep apnea Surgical History (Updated 10/17/22 @ 13:59 by MARCY Gaona) Hx of appendectomy Hx of section Hx of right knee surgery Hx of umbilical hernia repair Family History (Updated 10/17/22 @ 14:00 by MARCY Gaona) Mother No problems noted. Father Cancer Sister No problems noted. Sister No problems noted. Son No problems noted. Son No problems noted. Son No problems noted. Daughter No problems noted. Social History (Updated 10/17/22 @ 13:58 by MARCY Gaona) Alcohol intake: never Patient Tobacco Use Status: Never used Tobacco Assessment & Plan Assessment & Plan (1) Morbid obesity: Code(s): E66.01 - Morbid (severe) obesity due to excess calories Plan: 1. Start with 2 Pure protein shakes with 1/2 scoop in 8oz almond milk each, 3 Zone Perfect protein bars and one meal (7 forks of meat and 7 forks of salad or vegetables) 2. Walk daily, preferably uphill for 300 calories per day, daily 3. Send me weight measurements as soon as you return from vacation Telehealth Telehealth Location of provider rendering services: practice address Location of patient: address on file Patient Identification confirmed using: Name, : Yes Telehealth method: voice only Patient verbally consented to treatment: Yes Patient verbally consented to billing insurance company: Yes Patient informed of any privacy concerns related to visit: Yes Minutes spent on Phone/Video with Pt.: 20 Coding Level of Care Code Tele Est Pt Level 3 (64763) Diagnoses Morbid obesity E66.01 Time Spent (min) 20
[2023-01-11 18:10] VITALS: BMI 47.5
== END 2023-01-11 18:23 | disposition home or self-care (01) ==
LOC: HO.HBS 10:03
PROVIDERS: PCP Internal Medicine; Visit Provider Surgery
DX: E66.01 Morbid (severe) obesity due to excess calories (principal); Z68.42 Body mass index [BMI] 45.0-49.9, adult
CPT/HCPCS: 99213

== ENCOUNTER → 2023-01-11 10:03 | Outpatient (BNVA) | payer OTHER, SELFPAY | PROVIDERS: PCP Internal Medicine; Visit Provider Surgery | DX: E66.01 Morbid (severe) obesity due to excess calories (principal); I10 Essential (primary) hypertension; G47.30 Sleep apnea, unspecified ==

== ENCOUNTER 2023-02-08 08:10 | Outpatient (AMB) | payer OTHER, SELFPAY ==
--- NOTE | 2023-02-05 15:02 | MHC.OFFVISWM ---
Intake VS Expanded 02/05/23 15:03 Height 5 ft 2 in Weight 261 lb 4 oz BMI 47.8 Body Fat 170.6 Body Fat Percentage 65.3 Free Fat Mass 90.8 Visceral Mass 29 Water Mass 62.2 BMR 1,266 Intake Visit Reasons: TV Follow Up SWL Allergies acetaminophen [From Percocet] Adverse Reaction (Verified 11/07/22 10:41) Anxiety oxycodone [From Percocet] Adverse Reaction (Verified 11/07/22 10:41) Anxiety HPI TV Follow Up SWL HPI Details Start time: 1pm, End time: 1.30pm I spent 25 minutes speaking with the patient on the phone plus an additional 5 minutes reviewing and updating records for a total of 30 minutes HPI Comments History of Present Illness Details Overall weight loss: 5.8lbs, or 2.17% TBWL Was ill and was not able to follow the nutritional plan or exercise [facility] Medical History (Updated 11/07/22 @ 15:44 by Ajay Orellana MD) Sleep apnea Morbid obesity Hypertension Surgical History (Updated 10/17/22 @ 13:59 by MARCY Gaona) Hx of right knee surgery Hx of umbilical hernia repair Hx of appendectomy Hx of section Family History (Updated 10/17/22 @ 14:00 by MARCY Gaona) Mother No problems noted. Father Cancer Sister No problems noted. Sister No problems noted. Son No problems noted. Son No problems noted. Son No problems noted. Daughter No problems noted. Social History (Updated 10/17/22 @ 13:58 by MARCY Gaona) Alcohol intake: never Patient Tobacco Use Status: Never used Tobacco Physical Exam Vital Signs: BMI result Body Mass Index 47.8 Assessment & Plan Assessment & Plan (1) Morbid obesity: Code(s): E66.01 - Morbid (severe) obesity due to excess calories Plan: 1. Start with 2 Pure protein shakes with 1/2 scoop in 8oz almond milk each at 5am-7am and 8am-10am, 2 Zone Perfect protein bars at 11am-1pm and 2pm-4pm, one meal at 5pm (7 forks of meat and 7 forks of salad or vegetables) and one more Zone Perfect protein bar at 7pm-9pm. 2. Walk daily, preferably uphill for 300 calories per day, daily 3. Alternatively purchase a stationary bike, elliptical or treadmill at home that can track calories. Let me know if you do so I can give you an exercise plan. 4. Send me weight measurements weekly on Sundays Telehealth Telehealth Location of provider rendering services: practice address Location of patient: address on file Patient Identification confirmed using: Name, : Yes Telehealth method: voice only Patient verbally consented to treatment: Yes Patient verbally consented to billing insurance company: Yes Patient informed of any privacy concerns related to visit: Yes Minutes spent on Phone/Video with Pt.: 30 Coding Level of Care Code Tele Est Pt Level 4 (49094) Diagnoses Morbid obesity E66.01 Time Spent (min) 30
[2023-02-05 15:03] VITALS: BMI 47.8
== END 2023-02-08 14:53 | disposition home or self-care (01) ==
LOC: HO.HBS 08:11
PROVIDERS: PCP Internal Medicine; Visit Provider Surgery
DX: E66.01 Morbid (severe) obesity due to excess calories (principal); Z68.42 Body mass index [BMI] 45.0-49.9, adult
CPT/HCPCS: 99213

== ENCOUNTER → 2023-02-08 08:10 | Outpatient (BNVA) | payer OTHER, SELFPAY | PROVIDERS: PCP Internal Medicine; Visit Provider Surgery ==

== ENCOUNTER 2023-03-04 07:59 | Outpatient (AMB) | payer OTHER, SELFPAY ==
--- NOTE | 2023-03-04 08:22 | MHC.OFFVISWM ---
Intake VS Expanded 03/04/23 08:33 Height 5 ft 2 in Weight 253 lb 6 oz BMI 46.3 Body Fat % 63.1 Body Fat Mass 160 Fat Free Mass 93.6 Visceral Fat Rating 27 Body Water % 25.3 Body Water Mass 64.1 Basal Metabolic Rate/Score 1,280 Intake Visit Reasons: TV Follow Up SWL Allergies acetaminophen [From Percocet] Adverse Reaction (Verified 11/07/22 10:41) Anxiety oxycodone [From Percocet] Adverse Reaction (Verified 11/07/22 10:41) Anxiety HPI TV Follow Up SWL HPI Details Start time: 8.20am, End time: 8.43am ?I spent 18 minutes speaking with the patient on the phone plus an additional 5 minutes reviewing and updating records for a total of 23 minutes HPI Comments History of Present Illness Details Overall weight loss: 14.8lbs or 5.54% TBWL Is doing 2 Pure protein shakes with 1/2 scoop in 8oz almond milk each, 1-2 Zone Perfect protein bars and one meal (7 forks of meat and 7 forks of salad or vegetables) Exercise: going to Gym x5/week doing Elliptical for 300-350 calories PFSH Medical History (Updated 11/07/22 @ 15:44 by Ajay Orellana MD) Sleep apnea Morbid obesity Hypertension Surgical History (Updated 10/17/22 @ 13:59 by MARCY Gaona) Hx of right knee surgery Hx of umbilical hernia repair Hx of appendectomy Hx of section Family History (Updated 10/17/22 @ 14:00 by MARCY Gaona) Mother No problems noted. Father Cancer Sister No problems noted. Sister No problems noted. Son No problems noted. Son No problems noted. Son No problems noted. Daughter No problems noted. Social History (Updated 10/17/22 @ 13:58 by MARCY Gaona) Alcohol intake: never Patient Tobacco Use Status: Never used Tobacco Assessment & Plan Assessment & Plan (1) Morbid obesity: Code(s): E66.01 - Morbid (severe) obesity due to excess calories Plan: 1. Continue with 2 Pure protein shakes with 1/2 scoop in 8oz almond milk each, 3 Zone Perfect protein bars and one meal (7 forks of meat and 7 forks of salad or vegetables) 2. Increase Elliptical to 400 calories per day, 5 days per week. Goal is to burn 2000 calories per week. If you feel tired, reduce the level at the Elliptical at 12 so you can be able to burn the 400 calories 3. Continue to send me weight measurements weekly on Saturdays. Telehealth Telehealth Location of provider rendering services: practice address Location of patient: address on file Patient Identification confirmed using: Name, : Yes Telehealth method: voice only Patient verbally consented to treatment: Yes Patient verbally consented to billing insurance company: Yes Patient informed of any privacy concerns related to visit: Yes Minutes spent on Phone/Video with Pt.: 23 Coding Level of Care Code Tele Est Pt Level 3 (52251) Diagnoses Morbid obesity E66.01 Time Spent (min) 23
[2023-03-04 08:33] VITALS: BMI 46.3
== END 2023-03-04 08:43 | disposition home or self-care (01) ==
LOC: HO.HBS 07:59
PROVIDERS: PCP Internal Medicine; Visit Provider Surgery
DX: E66.01 Morbid (severe) obesity due to excess calories (principal); Z68.42 Body mass index [BMI] 45.0-49.9, adult
CPT/HCPCS: 99213

== ENCOUNTER → 2023-03-04 07:59 | Outpatient (BNVA) | payer OTHER, SELFPAY | PROVIDERS: PCP Internal Medicine; Visit Provider Surgery ==

== ENCOUNTER 2023-03-22 07:52 | Outpatient (AMB) | payer OTHER, SELFPAY ==
--- NOTE | 2023-03-22 10:48 | A.OFFVIS_ITS ---
Intake VS Expanded 03/22/23 11:02 Height 5 ft 2 in Weight 247 lb 4 oz BMI 45.2 Body Fat % 61.3 Body Fat Mass 151.6 Fat Free Mass 95.8 Visceral Fat Rating 27 Body Water % 26.5 Body Water Mass 65.5 Basal Metabolic Rate/Score 1,298 Intake Visit Reasons: TV Pre Op LSG 04/02/23 Allergies oxycodone [From Percocet] Adverse Reaction (Verified 11/07/22 10:41) Anxiety Medication List - Last Reconciled 03/22/23 by Ajay Orellana MD [FISH OIL W/ OMEGA 3 PO] [IRON PO] [MAGNESIUM CITRATE PO] olmesartan-hydrochlorothiazide 20-12.5 mg 1 tab PO DAILY ondansetron 4 mg PO Q12H pantoprazole 40 mg PO DAILY polyethylene glycol 3350 (Miralax) 17 grams PO DAILY sucralfate 10 mL PO BID [VITAMIN B12 PO] [VITAMIN D 50,000 multiple units PO QWEEK] HPI TV Pre Op LSG 04/02/23 HPI Details Start time: 10.41am, End time: 11.11am ?I spent 25 minutes speaking with the patient on the phone plus an additional 5 minutes reviewing and updating records for a total of 30 minutes HPI Comments History of Present Illness Details Overall weight loss: 19.8lbs, or 7.41% TBWL Is doing 2 Pure protein shakes (1/2 scoop in almond milk), 1-1.5 Zone Perfect protein bars and one meal (10 forks of protein and 10 forks of salad or vegetables) Exercise: Exercise bike at home PFSH Medical History (Updated 11/07/22 @ 15:44 by Ajay Orellana MD) Sleep apnea Morbid obesity Hypertension Surgical History (Updated 10/17/22 @ 13:59 by MARCY Gaona) Hx of right knee surgery Hx of umbilical hernia repair Hx of appendectomy Hx of section Family History (Updated 10/17/22 @ 14:00 by MARCY Gaona) Mother No problems noted. Father Cancer Sister No problems noted. Sister No problems noted. Son No problems noted. Son No problems noted. Son No problems noted. Daughter No problems noted. Social History (Updated 10/17/22 @ 13:58 by Ness Sulewski, RMA) Alcohol intake: never Patient Tobacco Use Status: Never used Tobacco Assessment & Plan Assessment & Plan (1) Hypertension: Code(s): I10 - Essential (primary) hypertension (2) Morbid obesity: Code(s): E66.01 - Morbid (severe) obesity due to excess calories Plan: 1. Plan for lap sleeve gastrectomy including upper GI endoscopy. All tests has been completed and reviewed and the patient is cleared for the surgery. ?If diaphragmatic or ventral hernias are present at time of surgery, these will be repaired laparoscopically as well. Risks and complications were discussed in detail including possible conversion to an open procedure, anastomotic leak, bleeding requiring transfusion, small bowel obstruction, , DVT and pulmonary embolism, cardiac, or pulmonary complications, as nursing home complications such as anastomotic ulcer, insufficient weight loss and vitamin deficiencies. I emphasized the importance of close follow-up, adherence to instructions and good communication. So far she has proven to be an excellent communicator and very compliant with all our directions accomplishing a great weight loss. I believe that she is an excellent candidate and she is ready. 2. Preop prescriptions were provided and explained the purpose of each one. Need to be purchased preop. Start Pantoprazole now as you get it from the pharmacy, 1 pill per day. Sucralfate and Zofran are for after surgery as needed. 3. Bowel prep: please do 7 packets ?of Miralax mixing each one with a an 8oz glass of water, crystal light, gatorade zero, or propel ?on 03/31/23 and the same amount on 04/01/23. Continue the protein shakes during? the bowel prep. 4. Needs to purchase 1oz medicine cups . 5. Needs to purchase Children's liquid Tylenol for postop pain control. 6. She needs to stop the fish oil and garlic tomorrow 03/23/23. Avoid aspirin, motrin, Advil, Aleve, Ibuprofen, Naproxyn. Tylenol is OK. 7. She needs to purchase the Celebrate 4:1 protein shakes from the hospital's gift shop. 8. Will do basic preop blood work-up any day between Saturday03/25/23 and Saturday03/29/23 fasting for 12 hours and is scheduled to see the Anesthesiologist prior to the day of surgery. 9. I sent to your pharmacy a blood pressure monitor to measure your blood pressure daily. Also I sent separate prescriptions for your blood pressure medication. The Hydrochlorothiazide needs to stop on 03/31/23. The Olmesartan you can take and the day of your surgery in the morning with a sip of water. 10. Importance of adherence to postop folllow-up and recommendations was underscored and she understands that. 11. Stop food and bars as of tomorrow 03/23/23 and continue with 6?Pure protein shakes (HALF scoop EACH in 8oz almond milk) at 6am-8am, 9am-11am, 12pm-2pm, 3pm- 5pm, 6pm-8pm and at 9pm-11pm 12. No soups, broths or V8 13. The patient's?medical?history has been reviewed and they are considered low risk for post op DVT and therefore DVT prophylaxis is not considered necessary. Travel after surgery was reviewed. The patient has not disclosed any travel plans during the first 30 days after surgery and they have been advised that within the first 30 days after surgery any bus, plane, train or car travel over 2 hours in duration is contraindicated due to the possibility of developing blood clots from immobility. Any travel, needs to include periods of ambulation of 10 minutes in duration every 2 hours.? Patient was instructed to discuss any plans for travel during this period with their bariatric surgeon.? 14. Use your CPAP daily and bring it to the hospital with your mask 15. Please take at the day of surgery the following medications: ONLY THE OLMESARTAN 16. Stop any control pills and don't use them for one month after surgery 17. Absolutely no smoking or vaping, or marijuana until the surgery and for at least the first 4 weeks. Only nicotine patches are allowed. 18. Send me weight measurements tomorrow 03/23, next Saturday on 03/30/23 and then on Saturday04/02/23 the day of surgery before you go to the hospital. 19. Avoid any steroids by mouth for any reason. Let me know if someone prescribes them to you (3) Sleep apnea: Code(s): G47.30 - Sleep apnea, unspecified Orders: Orders TSH reflex Free T4 Today E66.01 - Morbid (severe) obesity due to excess calories, G47.30 - Sleep apnea, unspecified, I10 - Essential (primary) h ypertension Type and Screen Today E66.01 - Morbid (severe) obesity due to excess calories, G47.30 - Sleep apnea, unspecified, I10 - Essential (primary) hypertension Partial Thromboplastin Time Today E66.01 - Morbid (severe) obesity due to excess calories, G47.30 - Sleep apnea, unspecified, I10 - Essential (primary) hypertension C Reactive Protein Today E66.01 - Morbid (severe) obesity due to excess calories, G47.30 - Sleep apnea, unspecified, I10 - Essential (primary) hypertension Complete Blood Count Auto Diff Today E66.01 - Morbid (severe) obesity due to excess calories, G47.30 - Sleep apnea, unspecified, I10 - Essential (primary) hypertension Comprehensive Met. Panel Today E66.01 - Morbid (severe) obesity due to excess calories, G47.30 - Sleep apnea, unspecified, I10 - Essential (primary) hypertension Prothrombin Time INR Today E66.01 - Morbid (severe) obesity due to excess calories, G47.30 - Sleep apnea, unspecified, I10 - Essential (primary) hypertension Lipid Panel Today E66.01 - Morbid (severe) obesity due to excess calories, G47.30 - Sleep apnea, unspecified, I10 - Essential (primary) hypertension Hemoglobin A1c Today E66.01 - Morbid (severe) obesity due to excess calories, G47.30 - Sleep apnea, unspecified, I10 - Essential (primary) hypertension Insulin Today E66.01 - Morbid (severe) obesity due to excess calories, G47.30 - Sleep apnea, unspecified, I10 - Essential (primary) hypertension Medications: New pantoprazole 40 mg PO DAILY 30 tabs 2RF K21.9 - Gastro-esophageal reflux disease without esophagitis sucralfate 10 mL PO BID 400 mL 2RF K21.9 - Gastro-esophageal reflux disease without esophagitis ondansetron Only take one every 12 hours as needed if you have nausea 4 mg PO Q12H 20 tabs 0RF nausea and vomiting R11.0 - Nausea polyethylene glycol 3350 (Miralax) Mix each packet with 8oz of water, Crystal light, or Gatorade zero, or Propel and do 7 packets on 03/31/23 and another 7 packets on 04/01/23 17 grams PO DAILY 14 ea 0RF Z01.818 - Encounter for other preprocedural examination blood pressure test kit-large (ExoYou Blood Pressure Monitor kit) As directed 1 ea 0RF olmesartan 20 mg PO DAILY 30 tabs 2RF I10 - Essential (primary) hypertension hydrochlorothiazide 12.5 mg PO DAILY 30 tabs 2RF I10 - Essential (primary) hypertension Telehealth Telehealth Location of provider rendering services: practice address Location of patient: address on file Patient Identification confirmed using: Name, : Yes Telehealth method: voice only Patient verbally consented to treatment: Yes Patient verbally consented to billing insurance company: Yes Patient informed of any privacy concerns related to visit: Yes Minutes spent on Phone/Video with Pt.: 30 Coding Level of Care Code Tele Est Pt Level 4 (90581) Diagnoses Hypertension I10 Morbid obesity E66.01 Sleep apnea G47.30 Time Spent (min) 30
[2023-03-22 11:02] VITALS: BMI 45.2
== END 2023-03-22 11:12 | disposition home or self-care (01) ==
LOC: HO.HBS 07:52
PROVIDERS: PCP Internal Medicine; Visit Provider Surgery
DX: E66.01 Morbid (severe) obesity due to excess calories (principal); Z68.41 Body mass index [BMI] 40.0-44.9, adult; I10 Essential (primary) hypertension; G47.30 Sleep apnea, unspecified
CPT/HCPCS: 99214

== ENCOUNTER → 2023-03-22 07:52 | Outpatient (BNVA) | payer OTHER, SELFPAY | PROVIDERS: PCP Internal Medicine; Visit Provider Surgery ==

== ENCOUNTER → 2023-03-27 13:02 | Outpatient (BNVA) | payer OTHER, SELFPAY | PROVIDERS: PCP Internal Medicine; Visit Provider Surgery ==

== ENCOUNTER 2023-04-02 08:59 | Inpatient (IN) | payer OTHER, SELFPAY ==
[2023-03-27 13:00] LABS: MANUAL DIFF FLAG NO
[2023-03-27 13:03] LABS: Basophils Percent Auto 0.6 % (0-2); Eosinophils Absolute Auto 0.1 X10*3/uL (0.0-0.4); Eosinophils Percent Auto 1.5 % (0-4); Hematocrit 34.5 % (37.0-47.0); Hemoglobin 11.7 g/dl (12.0-16.0); Imm Gran Abs Auto 0.01 X10*3/uL (0.00-0.03); Imm Gran Pct Auto 0.2 % (0.0-0.4); Lymphocytes Absolute Auto 2.2 X10*3/uL (1.2-4.9); Lymphocytes Percent Auto 33.4 % (20-40); Mean Corpuscular HGB Conc 33.9 g/dl (31.0-35.0); Mean Corpuscular Hemoglobin 30.1 pg (27.0-33.0); Mean Corpuscular Volume 88.7 fL (80.0-98.0); Mean Platelet Volume 9.3 fL (9.4-12.3); Monocytes Absolute Auto 0.5 X10*3/uL (0.1-1.2); Monocytes Percent Auto 7.6 % (2-11); Neutrophils Absolute Auto 3.7 x10*3/uL (2.0-8.3); Neutrophils Percent Auto 56.7 % (45-73); Platelet Count 265 X10*3/uL (160-400); Red Blood Count 3.89 X10*6/uL (4.20-5.50); Red Cell Distribution Width 12.5 % (11.0-16.0); White Blood Count 6.5 X10*3/uL (4.8-10.8)
[2023-03-27 13:10] LABS: Estimated Average Glucose 103 mg/dL; Hemoglobin A1c % 5.2 % (<6.0); Prothrombin Time 12.2 SEC (11.1-13.3)
[2023-03-27 13:13] LABS: Partial Thromboplastin Time 27.7 SEC (26.0-36.4)
[2023-03-27 13:28] LABS: Alanine Aminotransferase 23 U/L (0-31); Albumin Level 4.1 g/dL (3.5-5.0); Alkaline Phosphatase 75 U/L (39-117); Anion Gap 13 (12-20); Aspartate Amino Transferase 22 U/L (5-31); Bilirubin Total 0.4 mg/dL (0.0-1.0); Blood Urea Nitrogen 13 mg/dL (9-16); C Reactive Protein 1.05 mg/dL (< or = 0.50); Calcium 9.4 mg/dL (8.4-10.2); Carbon Dioxide 23 mmol/L (22-29); Chloride 109 mmol/L (96-108); Cholesterol 168 mg/dL (<200); Estimated Glomerular Filt Rate > 60; Glucose Random 94 mg/dL (60-115); HDL Cholesterol 33 mg/dL (>40); LDL Cholesterol Calculated 117 mg/dL (<100); Potassium 3.5 mmol/L (3.3-5.1); Sodium 141 mmol/L (135-145); Total Protein 7.5 g/dL (6.5-8.0); Triglycerides 94 mg/dL (<150)
[2023-03-27 13:42] LABS: TSH reflex Free T4 1.05 uIU/mL (0.32-4.0)
[2023-03-27 15:50] VITALS: BMI 44.4
--- NOTE | 2023-03-31 17:01 | MHC.SHP ---
Pre-Procedural Eval Section A Date of Service: 03/31/23 The patient is an INPATIENT: Yes The History & Physical has been completed within 30 days and I have reviewed it.: Yes Section B Chief Complaint: Morbid (severe) obesity due to excess calories Relevant Family History (Specify if Yes): No Relevant Social History: None Present Medications: None Medical History: No relevant PMH History of Previous Operations: No relevant previous surgery Allergies: Allergies Allergy/AdvReac Type Severity Reaction Status Date / Time oxycodone [From Percocet] AdvReac Anxiety Verified 03/27/23 15:53 Review of Systems Sugical H&P ROS: Negative: Constitution, Cardiovascular, Respiratory, Neurological, Psychiatric, Hem-Onc, Allergic/Immunologic, Gastrointestinal, Genitourinary, Musculoskeletal, Integumentary, Endocrine and Eyes/Ears/Nose/Throat Exam Surgical H&P Exam: Normal: HEENT, Normal: Heart, Normal: Lungs, Normal: Extremities, Normal: Abdomen, Normal: Skin and Normal: Neurological Plan Diagnosis/Plan: Unchanged I have reviewed the history and physical and performed a pertinent physical examination on my patient. No changes have occurred unless specified. Time Spent With Patient Time: Total time managing care of this patient today ____ minutes.
--- NOTE | 2023-04-01 10:49 | HO.ANESPROP2 ---
Documented by User: Adela Espino NP 04/01/23 10:51 HPI - Anesthesia Eval Consult details Narrative: 47yo F for Gastrectomy Sleeve-EGD, possible diaphragmatic hernia, possible ventral hernia, possible open PMFSH Active Problems Active Problems: All Active Problems (Updated 11/07/22 @ 15:44 by Ajay Orellana MD) Abnormal EKG (Acute) Sleep apnea (Acute) Hypertension (Acute) Morbid obesity (Acute) Past Medical History Medical History Sleep apnea Morbid obesity Hypertension Family History Family History Mother No problems noted. Father Cancer Sister No problems noted. Sister No problems noted. Son No problems noted. Son No problems noted. Son No problems noted. Daughter No problems noted. Surgical History Surgical History Hx of right knee surgery Hx of umbilical hernia repair Hx of appendectomy Hx of section Social History Social History Household Members: None Housing: Apartment Are you a primary acute care registered nurse to a significant other at home: No Do you presently have visiting nurse or other home services: No Alcohol intake: never Patient Tobacco Use Status: Former Tobacco user Quit Date: more than 10 years ago Tobacco use type: Cigarette Use of substances other than those prescribed or required for medical reasons: No Have you been hit, kicked, punched, or otherwise hurt by someone within the past year? If so, by whom?: No Are you DNR?: No Advance Directives: No Advance Directives Information Provided: Yes Advance Directives on File: No Recently lost weight without trying: No Nutrition Risks: No Nutritional Risk Patient : No FDLMP: 03/23/2023 : No Poor oral hygiene: No Meds Allergies Allergy/AdvReac Type Severity Reaction Status Date / Time oxycodone [From Percocet] AdvReac Anxiety Verified 03/27/23 15:53 Home Medications Medication Instructions Recorded Confirmed Last Taken Type FISH OIL W/ OMEGA 3 PO 10/17/22 03/22/23 Unknown History IRON PO 10/17/22 03/22/23 Unknown History MAGNESIUM CITRATE PO 10/17/22 03/22/23 Unknown History VITAMIN B12 PO 10/17/22 03/22/23 Unknown History VITAMIN D 50,000 units PO QWEEK 10/17/22 03/22/23 Unknown History olmesartan 20 1 tab PO DAILY 10/17/22 03/22/23 Unknown History mg-hydrochlorothiazide 12.5 mg tablet Exam Exam Date and Time: April 01, 2023 1049 Height,Weight and Vital Signs: Height 5 ft 2 in Weight 110.223 kg Pertinent Lab Results Pertinent Lab Results: Laboratory Tests 03/27/23 12:47 WBC 6.5 RBC 3.89 L Hgb 11.7 L Hct 34.5 L MCV 88.7 MCH 30.1 MCHC 33.9 RDW 12.5 Plt Count 265 MPV 9.3 L Immature Gran % (Auto) 0.2 Neut % (Auto) 56.7 Lymph % (Auto) 33.4 [place] % (Auto) 7.6 Eos % (Auto) 1.5 Baso % (Auto) 0.6 Lymph # (Auto) 2.2 [place] # (Auto) 0.5 Eos # (Auto) 0.1 Baso # (Auto) 0.0 Abs Immat Gran (auto) 0.01 Absolute Neuts (auto) 3.7 Absolute Nucleated RBC 0.000 Nucleated RBC % (auto) 0.0 PT 12.2 INR 1.0 APTT 27.7 Sodium 141 Potassium 3.5 Chloride 109 H Carbon Dioxide 23 Anion Gap 13 BUN 13 Creatinine 0.76 Estim Creat Clear Calc TNP Estimated GFR > 60 Random Glucose 94 Estimat Average Glucose 103 Hemoglobin A1c % 5.2 Calcium 9.4 Total Bilirubin 0.4 AST 22 ALT 23 Alkaline Phosphatase 75 C-Reactive Protein 1.05 H Total Protein 7.5 Albumin 4.1 Triglycerides 94 Cholesterol 168 LDL Cholesterol, Calc 117 H HDL Cholesterol 33 L TSH 1.05 Blood Type O Positive Antibody Screen NEGATIVE Narrative Narrative: EKG 11/2022 Vent. Rate : 077 BPM Atrial Rate : 077 BPM P-R Int : 152 ms QRS Dur : 082 ms QT Int : 386 ms P-R-T Axes : 073 028 044 degrees QTc Int : 436 ms Normal sinus rhythm Possible Anterior infarct , age undetermined Abnormal ECG No previous ECGs available ECHO 12/2022 Conclusions: - 1. Normal LV systolic function with LVEF of 60 65% 2. Mildly dilated left atrium 3. Normal cardiac valvular Dopplers 4. Normal RV systolic pressure 5. No gross pericardial effusion NM gail perf SPECT rest & str 11/2022 Impression: 1. Normal myocardial perfusion 2. Gated LVEF is 68% 3. Transient ischemic dilatation not present Stress EKG is negative for ischemia Assessment and Plan Assessment Anesthesia Assessment: Chart Reviewed Documented by User: Jag Lowe MD 04/02/23 09:01 [facility] Past Medical History Medical History Sleep apnea Morbid obesity Hypertension Family History Family History Mother No problems noted. Father Cancer Sister No problems noted. Sister No problems noted. Son No problems noted. Son No problems noted. Son No problems noted. Daughter No problems noted. Family history of problems with anesthesia: No Surgical History Surgical History Hx of right knee surgery Hx of umbilical hernia repair Hx of appendectomy Hx of section History of Problems with Anesthesia: No Social History Social History Household Members: None Housing: Apartment Are you a primary acute care registered nurse to a significant other at home: No Do you presently have visiting nurse or other home services: No Alcohol intake: never Patient Tobacco Use Status: Former Tobacco user Quit Date: more than 10 years ago Tobacco use type: Cigarette Use of substances other than those prescribed or required for medical reasons: No Have you been hit, kicked, punched, or otherwise hurt by someone within the past year? If so, by whom?: No Are you DNR?: No Advance Directives: No Advance Directives Information Provided: Yes Advance Directives on File: No Recently lost weight without trying: No Nutrition Risks: No Nutritional Risk Patient : No FDLMP: 03/23/2023 : No Poor oral hygiene: No Meds Allergies Allergy/AdvReac Type Severity Reaction Status Date / Time oxycodone [From Percocet] AdvReac Anxiety Verified 03/27/23 15:53 Home Medications Medication Instructions Recorded Confirmed Last Taken Type FISH OIL W/ OMEGA 3 PO 10/17/22 03/22/23 Unknown History IRON PO 10/17/22 03/22/23 Unknown History MAGNESIUM CITRATE PO 10/17/22 03/22/23 Unknown History VITAMIN B12 PO 10/17/22 03/22/23 Unknown History VITAMIN D 50,000 units PO QWEEK 10/17/22 03/22/23 Unknown History olmesartan 20 1 tab PO DAILY 10/17/22 03/22/23 Unknown History mg-hydrochlorothiazide 12.5 mg tablet Exam Airway Mallampati Class: III TM Dist: >3cm Neck ROM: Full Loose/Missing/Broken Teeth: No Heart: [id number]+[id number] Lungs: cta b/l Assessment and Plan Assessment Anesthesia Assessment: Anesthesia Plan Discussed Final Anesthetic Review Family History of Problems with Anesthesia: No History of Problems with Anesthesia: No NPO: Yes ASA Class: III Final Preanesthetic Review: No Changes in Pt Med Stat, Meds/Allgs Chart Reviewed, Consent Obtained/Reviewed and Anes Risks/Benef Reviewed Patient Risk: Intermediate Procedure Risk: Intermediate Assessment/Block/Sedation in SS: Assess/Block/Sedation-SS Anesthetic Plan Anesthetic Plan: GA and Agree w/ Assess. and Plan Disposition: Standard PACU
[2023-04-02] VITALS (10 sets, daily range): BP systolic 121–167; BP diastolic 64–77; PULSE 71–96; RESP 14–22; TEMP 36.1–36.6; O2SAT 96–100; BMI 43.0
--- NOTE | 2023-04-02 08:46 | PM.OP ---
Brief Operative Note Date of Service: 04/02/23 Pre-op diagnosis: Morbid obesity with comorbidities (see below) Post-op diagnosis: same (& incarcerated diaphragmatic hernia) Procedure: INITIAL PATIENT BMI ON PRESENTATION AT OUR OFFICE: 48.9 kg/m2 LAST BMI BEFORE SURGERY: 44.7 kg/m2 COMORBIDITIES: sleep apnea on CPAP, hypertension, GERD, liver fibrosis, left atrium dilation ?The patient presented to the Weight Management Program with significant obesity that was negatively impacting the patient's comorbidities as listed above.? The program is a phased program with a special focus on preoperative medical weight management to promote substantial weight loss and prepare the patients for the second phase of the program: bariatric surgery. The patient participated in an intensive weekly lifestyle ?intervention and exercise program during which the patient ?has lost between the initial office visit and the last preoperative visit 30lbs, or 11% of initial actual body weight. It was deemed appropriate for the patient to now have bariatric surgery. In light of the current Covid-19 pandemic and the well documented strong association of obesity and increased risk of worse outcomes if infected with Covid-19 (REFERENCES:https://pubmed.ncbi.nlm.nih.gov/88806282/,?https://pubmed.ncbi.nlm.nih.gov/38531049/), any delay in undergoing bariatric surgery may lead to the patient's worsening health condition and increased?risk of more severe Covid-19 disease if infected. In addition a recent?study from [facility] published in [facility] on 05/29/2021 ([email or web address]) found that, among patients with obesity, substantial weight loss achieved with surgery was associated with improved outcomes of COVID-19 infection. The findings suggest that obesity can be a modifiable risk factor for the severity of COVID-19 infection. In addition, the patient met the BMI-criteria for bariatric surgery based on the BMI on initial presentation. The patient should not be penalized for achieving such weight loss because ?it is not sustainable long-term without surgical intervention and it was achieved in preparation for bariatric surgery ?under my direction and based on my published research ([email or web address]).[email or web address] and?[email or web address].soard.org/article/[email or web address]/pdf) ?that a 10% preoperative weight loss improves long-term weight loss after surgery and reduces perioperative complications.? Insurance carriers such as [facility] have endorsed my recommendations ?and have included in their policies criteria to include a 10% preoperative weight loss requirement. PROCEDURE: Esophago-gastroscopy, laparoscopic repair of incarcerated diaphragmatic hernia, laparoscopic lysis of adhesions, laparoscopic sleeve gastrectomy and laparoscopic gastropexy INDICATIONS: This is a 47 year-old female who was electively scheduled for laparoscopic, possibly open sleeve gastrectomy. The risks and complications of the procedure were discussed with the patient in advance, particularly the possibility of ; pulmonary embolism; staple line leak; bleeding; GERD; cardiac, pulmonary, or renal complications; as well as long-term problems such as insufficient weight loss, vitamin deficiency, strictures, or ulcers. The patient understood all the risks, and was in agreement to proceed with surgery. DESCRIPTION OF PROCEDURE: After informed consent was obtained from the patient, the patient was given preoperative antibiotics, and was transferred to the operating room. After successful induction of general anesthesia, pneumatic compression devices were placed on both lower extremities. An upper endoscopy was performed next. The oropharynx and esophagus appeared to be within normal limits. There was a diaphragmatic hernia present of moderate size which was not reported at the preoperative upper GI. The stomach was entered. Then after all fluid and air were suctioned and the stomach was fully decompressed, the scope was withdrawn and secured in the mid esophagus. The patient was then prepped and draped in the usual sterile manner, and abdominal access was established at the right upper quadrant with the Lucila technique. A 12 mm blunt port was inserted, and the abdomen was insufflated with CO2 to a pressure of 15 mmHg. Under direct visualization, additional ports were placed, specifically two 5 mm Versi-step ports to the left upper quadrant, and a 5 mm Versi-Step port to the right upper quadrant. 1% lidocaine plain was used to infiltrate all port sites as well as all fascia defects. Following that, the patient was placed in a steep reverse Trendelenburg position. An additional 5 mm port was placed to the right flank for the Mediflex retractor that was used to retract the left lobe of the liver. The gastro-esophageal fat pad was opened with the ultrasonic device (Thunderbeat, Olympus) and the anterior esophagus and hiatus were exposed. The angle of His was opened with the ultrasonic device the fundus of the stomach from any diaphragmatic and splenic attachments. I then opened the gastrocolic ligament between the transverse colon and the greater curvature of the stomach with the ultrasonic device to enter the lesser sac and facilitate the ligation of the short gastric vessels. I started at a mid-point along the greater curvature and using the Thunderbeat, all short gastric vessels were divided all the way to the angle of His until the left angel was completely dissected at its entirety. I then divided the gastro-colic ligament distally to a distance of about 3-4 cm proximal to the pylorus. There were extensive congenital adhesions between the pancreas and posterior gastric wall. Those were lysed completely with the ultrasonic device. Adhesiolysis took approximately 45 min to complete. There was an obvious significant-sized hiatal hernia. I continued dissecting along the hiatus toward the left angel and the angle of His. I fully mobilized the fat pad that was incarcerated in the hernia. I then continued by dissecting even further into the posterior retro-esophageal space all the way to the angle of His. I continued to mobilize the esophagus into the mediastinum circumferentially. Both vagal nerves were seen and preserved. At that point, I was able to have at least 3 to 5 cm of esophagus into the abdomen.? After I completely mobilized the esophagus from both the left and right angel and I had a good mobilization of the esophagus circumferentially, I closed the hernia defect with three interrupted #0 Surgidac sutures using the Endo Stitch device, two of which was placed posterior and one of which anterior to the esophagus. ? The stomach was then divided transversely with two Endo HOLGER-45 purple and four HOLGER-60 articulating purple loads using the [employer] stapler and loads. Every effort was made that the gastric sleeve had a tubular shape and an even caliber throughout. Once the sleeve resection was completed, the staple line of the gastric sleeve was reinforced with Hemoclips. The resected stomach was retrieved without difficulty from the Lucila port. A gastropexy was then performed in order to prevent postoperative GERD and partial gastric volvulus. Several interrupted 2.0 Surgidac sutures were placed between the sleeve's staple line and the previously divided greater omentum and gastro-colic ligament using the Endo-Stitch device. ?An upper endoscopy was performed. There was no narrowing at the GE junction. The scope was easily advanced all the way to the pylorus which was clearly visualized. There was no narrowing anywhere and the sleeve's caliber was even throughout. The sleeve's staple line was inspected and there was no evidence of ischemia, bleeding or dehiscence. At that point the gastroscope was withdrawn from the patient?s mouth while we were decompressing the bowel and the stomach from any remaining air. I looked into the lesser sac to see how the sleeve was situating and it was situating well. There was no bleeding from the staple line, spleen, or short gastric vessels. The Mediflex retractor was removed, and the undersurface of the liver was inspected and there was no bleeding. The patient was placed in supine position. I closed the fascial defect of the 12 mm port site with a figure of eight #1 Polysorb suture. Then 30cc Ropivacaine plain with 10 mg of Dexamethasone were used to infiltrate the fascial closure as well as all skin incisions. A total of 7ml Zynrelef was applied in the Lucila wound. At this point, the abdomen was deflated, all ports were removed under direct vision, and no bleeding was noted from any of the port sites. The skin incisions were irrigated with saline and were closed with 4-0 absorbable monofilament sutures. Steri-Strips and OpSites were used to cover all incisions. The patient was extubated and was transferred in stable condition to the recovery room for further care. I was present and performed all de jesus parts of the procedure. Ms. Xiao was the assistant grocery. There were no residents to assist with this case. Galo Orellana MD, PhD, FACS Surgeon: Ajay Orellana MD Anesthesia: GETA, local and other (TAP block and 7ml Zynrelef) Was an Reporting Lead used for this Procedure?: No Reporting Lead: Giselle Xiao Estimated blood loss (mL): 10 IV fluids (mL): 3,000 Urine output (mL): 0 (No Jaramillo to record output) Pathology: other (Stomach) Condition: stable Disposition: PACU
--- NOTE | 2023-04-02 08:50 | P.PNGS_ITS ---
Subjective Subjective Date of Service: 04/03/23 Interval history: Feels well. Mild incisional pain. She is tolerating phase 1 bariatric diet Physical Exam 2 Vital Signs: Vital Signs: BMI result Body Mass Index 44.4 GI: Inspection: Yes normal to inspection, Yes incision (clean, dry and intact) and Yes obesity Palpation (GI): Soft to palpation Extrem: Right lower extremity: normal to inspection (no calf tenderness) L eft lower extremity: normal to inspection (no calf tenderness) Objective Data Labs 04/03/23 05:26 04/03/23 05:26 Procedures Date of Service Date of Service: 04/03/23 Progress Note: A&P Assessment and plan (1) Morbid obesity: Status: Acute Assessment and Plan: s/p laparoscopic sleeve gastrectomy, lysis of adhesions, diaphragmatic hernia repair and gastropexy Doing well Will check am labs and if OK the patient will be discharged home (2) Sleep apnea: Status: Acute (3) Hypertension: Status: Acute (4) GERD (gastroesophageal reflux disease): Status: Acute (5) Liver fibrosis: Status: Acute (6) Left atrial dilation: Status: Acute (7) S/P repair of paraesophageal hernia: Status: Acute (8) S/P laparoscopic sleeve gastrectomy: Status: Acute (9) Diaphragmatic hernia: Status: Acute (10) Congenital intra-abdominal adhesions: Status: Acute Time Spent With Patient Time: Total time managing care of this patient today ____ minutes. Quality Stroke Does the patient have a stroke diagnosis?: No VTE Prior VTE?: No VTE Risk Level:: Surgical - moderate VTE Device Contraindication: N/A - Device Ordered VTE Drug Contraindication: Treatment Not Indicated
[2023-04-02] MEDS: Lactated Ringers 1,000 ML 999 ML IV (09:10)
[2023-04-02] MEDS: Aprepitant 32 MG/4.4 ML VIAL IVPUSH (09:15)
[2023-04-02 10:28] LABS: UPreg QC Valid YES; Urine Pregnancy NEGATIVE (NEGATIVE)
--- NOTE | 2023-04-02 11:07 | PHA.MEDREC ---
Pharmacy Consult ? Medication Reconciliation Pharmacy has completed the medication reconciliation.
--- NOTE | 2023-04-02 13:09 | PM.DS ---
DS: Providers Provider Date of Service: 04/03/23 Date of admission: 04/02/23 08:59 Primary care physician: Petty Ardon MD DS: Diagnosis Discharge Diagnosis (1) Morbid obesity: Status: Acute (2) Sleep apnea: Status: Acute (3) Hypertension: Status: Acute (4) GERD (gastroesophageal reflux disease): Status: Acute (5) Liver fibrosis: Status: Acute (6) Left atrial dilation: Status: Acute DS: Summary Hospital Course Hospital Course: ADMITTING DIAGNOSIS: morbid obesity, HTN, CHRISTINA DISCHARGE DIAGNOSIS: same, s/p laparoscopic sleeve gastrectomy and repair diaphragmatic hernia PAST SURGICAL HISTORY: appendectomy, section, umbillical hernia repair PROCEDURE: upper endoscopy, laparoscopic sleeve gastrectomy and repair of diaphragmatic hernia hernia DISCHARGE SUMMARY: History of Present Illness: The patient is a 47 year-old woman with a BMI of 48.9 kg/m2 and associated co-morbidities as described above. The patient had extensive work-up, lost 17.8lbs preoperatively and was electively scheduled for laparoscopic, possible open sleeve gastrectomy and gastropexy. Risks and complications of the surgery were discussed with the patient in advance, particularly the possibility of , pulmonary embolism, anastomotic leak, bleeding, bowel injury, GERD, cardiac, renal or pulmonary complications. The patient understood all the risks and was in agreement with the surgical plan. Hospital Course: The patient underwent an uneventful laparoscopic sleeve gastrectomy with gastropexy and repair of diaphragmatic hernia on the day of admission. Postoperatively, the patient was transferred to the surgical floor. The patient received IV Acetaminophen and IV dilaudid for pain control. Patient was started on bariatric phase 1 diet POD #0. On postoperative day one, the patient was feeling well without nausea, vomiting, fevers, or tachycardia. The patient had some mild incisional pain and the abdomen was soft. On the morning of postoperative day one, the patient was continued on 1 ounce of water or ice every half hour. During the day, the patient did fairly well, having some incisional pain, but able to ambulate adequately and to tolerate liquids well. Since the patient is doing well, we decided that the patient was ready to be discharged. The patient was given instructions to follow-up with me next week and to call my office for any fever over 101, persistent abdominal pain, nausea, vomiting, GERD, symptoms of DVT such as calf tenderness, or leg swelling, or pulmonary embolism such as chest pain or shortness of breath. The patient was also instructed to drink 40-60 ounces of liquids per day using the 1-ounce cups. The patient had been given prescriptions for Tylenol for pain, Zofran prn for nausea, and pantoprazole and carafate previously. The patient was encouraged to ambulate and use the incentive spirometer. The patient was allowed to shower, but no baths, and encouraged to stay active at home. All of these instructions were given to the patient personally. All questions were answered and the patient understood all instructions, the instructions were also given to the patient in print. Time Spent with Patient Time attestation: Total time managing care of this patient today ____ minutes. Discharge coordination time: Less than 30 minutes Quality: Safe Use of Opioids Does Pt have an Active Cancer Diagnosis on the Problem List?: No Quality: Stroke Does the patient have a stroke diagnosis?: No Physical Exam Vital Signs: Vital Signs: Last Vital Signs Temp 97.5 F 04/02/23 09:27 Pulse 96 04/02/23 09:27 Resp 18 04/02/23 09:27 BP 122/66 04/02/23 09:27 Pulse Ox 98 04/02/23 09:27 O2 Del Method Room Air 04/02/23 09:27 BMI result Body Mass Index 43.0 DS: Data Data Completed and Pending Pending studies at discharge: Pending at discharge 04/02/23 12:13 Surgical [PTH] Routine Labs on day of discharge: Laboratory Results - last 24 hr 04/02/23 09:40 Urine Test NEGATIVE Discharge Plan Discharge Anticipated Discharge Date/Time: 04/03/23 10:06 Patient Disposition: Home, Self-Care Discharge Diagnosis: s/p sleeve gastrectomy Referrals: Petty Eckert MD [Primary Care Provider] - 1 Week Discharge Medications: Continued pantoprazole 40 mg tablet,delayed release (DR/EC) 40 mg PO DAILY@0630 sucralfate 100 mg/mL suspension 10 ml PO BID Qty: 400 2RF ondansetron 4 mg tablet,disintegrating 4 mg PO Q12H Qty: 20 0RF Held omega-3 fatty acids-fish oil 684-1,200 mg Capsule,Delayed Release(Dr/Ec) 1 cap PO DAILY Hold Instructions: Discuss with DR R olmesartan 20 mg tablet 20 mg PO DAILY Qty: 30 2RF Hold Instructions: Resume on 04/03/23. Check your blood pressure every evening and send it to Dr. Orellana. Do not take the medication before you hear from Dr. Orellana. Do not take the medication if your blood pressure is below 120/70 mmHg. Discontinued ferrous sulfate 324 mg (65 mg iron) Tablet,Delayed Release (Dr/Ec) 324 mg PO DAILY magnesium citrate Solution 150 ml PO DAILY PRN (Reason: Constipation) cyanocobalamin (vitamin B-12) 500 mcg Tablet 500 mcg PO DAILY ergocalciferol (vitamin D2) 1,250 mcg (50,000 unit) Capsule 1,250 mcg PO HERNANDEZ hydrochlorothiazide 12.5 mg tablet 12.5 mg PO DAILY Qty: 30 2RF No Action (DME) blood pressure test kit-large [500 [place]uch[place]uch BP Monitor] Kit See Rx Instructions .ROUTE .MEDSUPPLY Qty: 1 0RF Rx Instructions: As directed Discharge Orders: Discharge Order (Routine); Ordered 04/03/23 Ordered By: Ajay Orellana Activity on Discharge: No heavy lifting Stand Alone Forms: Patient Portal Discharge page Care Plan Goals: weightloss Health Concerns: obesity Plan of Treatment: No tub baths, sex or returning to work until discussed at first post op appointment. No exercise, alcohol, tobacco or illegal drug use. Continue to use incentive spirometer hourly while awake. Walk in home for 5- 10 minutes every 2 hours during the first week. Continue phase 1 diet today and start phase 2 diet tomorrow morning. Follow all instructions in the bariatric handbook and call with any questions. 1. Please call your doctor or come back to the emergency room should any new symptoms arise. 2. You will receive a courtesy call from [facility] 24-48 hours after discharge. 3. Activity: abstain from alcohol, practice limited stair climbing, no bending, no driving, no exercise, no illicit substances, no lifting, no sex, no tub bath, no work. 4. Diet: continue as discussed with bariatric team.. 5. Dressing Change/Wound Care: Do not change or remove surgical dressings unless they are wet or soiled. 6. Call your doctor if: - Your temperature exceeds 101.5 F - You experience excessive pain or swelling - You have an unexpected reaction to medication - You have excessive bleeding - You experience continued vomiting/nausea - Your incision begins to separate - Your incision shows signs of infection such as increased redness, swelling, excessive pain, heat, or drainage (light blood or clear fluid is normal) 7. General instructions: No lifting greater than 5 lbs for 1 week and not more than 20lbs the next 3?weeks. No driving until seen at the office in 5-7 days after surgery. If you do not move your bowels in the next 2 days, please tell?Dr. Orellana. Please walk around your home every hour or two to prevent blood clots from forming in your legs. You do not need to wake from sleeping to walk. Please sleep in a bed or couch to prevent kinking at the hips and knees. Please take your incentive spirometer (your lung dry cleaner hand) home with you and use it for the next few days to prevent pneumonia. You may shower, no hot tubs, baths or swimming pools.?Please follow the post op diet instructions you are?given by Dr Vanessa johnston? and text me daily at 5-6pm for an update.?If you have any issues or concerns or questions please communicate this to him via text.? The Celebrate shakes have all of the bariatric vitamins you need if you consume these shakes. If you are drinking other protein shakes, you will need to purchase the Celebrate multivitamins and calcium that are available in the hospital gift shop on the first floor of the main hospital.??Do not take anything without first discussing with Dr Orellana. Please make sure you are consuming at least 40 ounces of fluids per day starting the?day AFTER your discharge from the hospital. Always drink 1-2 ml per minute using the 5ml?syringe. If you drink faster you may experience?bloating,?gas pain, burping, nausea or heartburn. In that case please slow down your pace and use the syringe to?understand better the?proper?pace and volume of drinking. Do not hesitate to contact the office with any questions at . The patient's medical history has been reviewed and they are considered low risk for post op DVT and therefore DVT prophylaxis is not considered necessary. Travel after surgery was reviewed. The patient has not disclosed any travel plans during the first 30 days after surgery and they have been advised that within the first 30 days after surgery any bus, plane, train or car travel over 2 hours in duration is contraindicated due to the possibility of developing blood clots from immobility. Any travel, needs to include periods of ambulation of 10 minutes in duration every 2 hours. The patient was instructed to discuss any plans for travel during this period with their bariatric surgeon. Assessment: stable, post op sleeve gastrectomy and paraesophageal hernia repair
[2023-04-02] MEDS: ondansetron HCL 4 MG/2 ML VIAL IVPUSH (13:30)
[2023-04-02 14:00] LABS: Hematocrit 34.8 % (37.0-47.0); Hemoglobin 11.9 g/dl (12.0-16.0)
[2023-04-02 14:11] LABS: Anion Gap 16 (12-20); Blood Urea Nitrogen 12 mg/dL (9-16); Calcium 9.5 mg/dL (8.4-10.2); Carbon Dioxide 21 mmol/L (22-29); Chloride 105 mmol/L (96-108); Creatinine Clr Calc Pharmacy 96.2; Estimated Glomerular Filt Rate > 60; Glucose Random 136 mg/dL (60-115); Potassium 3.8 mmol/L (3.3-5.1); Sodium 138 mmol/L (135-145)
[2023-04-02] MEDS: Lactated Ringers 1,000 ML 100 ML IVCONT (14:28)
[2023-04-02] MEDS: Famotidine/PF 20 MG/2 ML VIAL IVPUSH ×2 (14:28→22:02)
[2023-04-02] MEDS: ceFAZolin Sodium/Dextrose,Iso 2 GM/50 ML PIGGYBACK IV (15:39)
[2023-04-02] MEDS: Acetaminophen 1,000 MG/100 ML PIGGYBACK 16.7 MG IV ×2 (16:20→23:31)
[2023-04-03 00:01] VITALS: BP 124/66; PULSE 61; RESP 16; TEMP 36.4
[2023-04-03 00:11] VITALS: BP 124/66; PULSE 61; RESP 16; TEMP 36.4; O2SAT 97
[2023-04-03] MEDS: Lactated Ringers 1,000 ML 100 ML IVCONT (02:40)
[2023-04-03 04:00] VITALS: BP 140/66; PULSE 77; RESP 16; TEMP 36.4; O2SAT 96
[2023-04-03] MEDS: Acetaminophen 1,000 MG/100 ML PIGGYBACK 16.7 MG IV (05:59)
[2023-04-03 06:17] LABS: MANUAL DIFF FLAG NO
[2023-04-03 06:38] LABS: Basophils Percent Auto 0.1 % (0-2); Hematocrit 34.5 % (37.0-47.0); Hemoglobin 11.7 g/dl (12.0-16.0); Imm Gran Abs Auto 0.05 X10*3/uL (0.00-0.03); Imm Gran Pct Auto 0.6 % (0.0-0.4); Lymphocytes Absolute Auto 1.1 X10*3/uL (1.2-4.9); Lymphocytes Percent Auto 12.1 % (20-40); Mean Corpuscular HGB Conc 33.9 g/dl (31.0-35.0); Mean Corpuscular Hemoglobin 30.1 pg (27.0-33.0); Mean Corpuscular Volume 88.7 fL (80.0-98.0); Mean Platelet Volume 10.4 fL (9.4-12.3); Monocytes Absolute Auto 0.3 X10*3/uL (0.1-1.2); Monocytes Percent Auto 3.7 % (2-11); Neutrophils Absolute Auto 7.3 x10*3/uL (2.0-8.3); Neutrophils Percent Auto 83.5 % (45-73); Platelet Count 297 X10*3/uL (160-400); Red Blood Count 3.89 X10*6/uL (4.20-5.50); Red Cell Distribution Width 12.2 % (11.0-16.0); White Blood Count 8.8 X10*3/uL (4.8-10.8)
[2023-04-03 06:52] LABS: Anion Gap 15 (12-20); Blood Urea Nitrogen 11 mg/dL (9-16); Calcium 9.4 mg/dL (8.4-10.2); Carbon Dioxide 20 mmol/L (22-29); Chloride 106 mmol/L (96-108); Creatinine Clr Calc Pharmacy 108.1; Estimated Glomerular Filt Rate > 60; Glucose Random 113 mg/dL (60-115); Potassium 3.8 mmol/L (3.3-5.1); Sodium 137 mmol/L (135-145)
[2023-04-03] MEDS: Famotidine/PF 20 MG/2 ML VIAL IVPUSH (07:48)
[2023-04-03 08:00] VITALS: BP 141/76; PULSE 71; RESP 18; TEMP 36.8; O2SAT 96
--- NOTE | 2023-04-03 09:59 | MHC.CM.PN ---
PT REPORTS SHE LIVES ALONE AND IS INDEPENDENT WITH CARE PT DENIES USE OF DME OR HOME SERVICES PT COMPLETED A HCP TODAY NAMING HER S/O, VALENCIA PERRY [phone] AND SON, THU MARRUFO [phone], HER PRIMARY AND ALTERNATE AGENTS RESPECTIVELY PCP: CLINTON SIMPSON PT WILL DC HOME TODAY VIA FAMILY TRANSPORT
--- NOTE | 2023-04-03 14:03 | HO.POSTANES ---
Post Anesthesia Evaluation Post Anesthesia Evaluation Date of Service: 04/03/23 Vital Signs: Vital Signs Temp Pulse Resp BP Pulse Ox O2 Del Method 04/03/23 08:00 98.3 F 71 18 141/76 H 96 Room Air 04/03/23 04:00 97.5 F 77 16 140/66 H 96 Room Air Anesthesia: General Endotracheal-GETA Mental Status: Awake Pain Control: Satisfactory Nausea/Vomiting: None Hydration: Adequate Anesthesia-Related Issues: No Anes. Related Issues
== END 2023-04-03 14:44 | disposition home or self-care (01) | DRG 403 ==
LOC: HO.SSSA 09:13 → HO.S3 13:22
PROVIDERS: Nurse Practitioner; Physician Assistant; Admitting Provider Surgery; PCP Internal Medicine; Visit Provider Surgery
PROC: 0DB64Z3 Excision of Stomach, Percutaneous Endoscopic Approach, Vertical (ICD-10-PCS; CPT 43845; principal; 2023-04-02 10:20)
DX: E66.01 Morbid (severe) obesity due to excess calories (principal); K74.00 Hepatic fibrosis, unspecified; I11.9 Hypertensive heart disease without heart failure; K44.0 Diaphragmatic hernia with obstruction, without gangrene; G47.33 Obstructive sleep apnea (adult) (pediatric); Z68.41 Body mass index [BMI] 40.0-44.9, adult; K21.9 Gastro-esophageal reflux disease without esophagitis; Q43.3 Congenital malformations of intestinal fixation; Z87.891 Personal history of nicotine dependence; Z79.899 Other long term (current) drug therapy
CPT/HCPCS: 36415; 80048; 80053; 80061; 81025; 83036; 84443; 85014; 85018; 85025; 85610; 85730; 86140; 86850; 86900; 86901; 88304; 88305; 88307; 88342; A4649; C9088; C9145; J0131; J0690; J1100; J1170; J2250; J2371; J2405; J2550; J2795; J3010

== ENCOUNTER → 2023-04-02 08:59 | Outpatient (BNV) | payer OTHER, SELFPAY | PROVIDERS: Admitting Provider Surgery; PCP Internal Medicine; Visit Provider Surgery | DX: E66.01 Morbid (severe) obesity due to excess calories (principal); Z68.41 Body mass index [BMI] 40.0-44.9, adult; K66.0 Peritoneal adhesions (postprocedural) (postinfection); K44.0 Diaphragmatic hernia with obstruction, without gangrene | CPT/HCPCS: 43281; 43659; 43775 ==

== ENCOUNTER 2023-04-09 10:23 | Outpatient (AMB) | payer OTHER, SELFPAY ==
--- NOTE | 2023-04-09 10:44 | A.OFFVIS_ITS ---
Intake VS Expanded 04/09/23 10:57 BP 124/64 Blood Pressure Location Rt brachial Blood Pressure Position Sitting Pulse 77 Pulse Source Pulse Oximeter Temp 97.8 F Temperature Source Temporal Artery Scan Pulse Oximetry 98 Oxygen Delivery Method Room Air Height 5 ft 2 in Weight 233 lb 9.6 oz BMI 42.7 Body Fat % 36.2 Body Fat Mass 84.4 Fat Free Mass 149.0 Visceral Fat Rating 11.0 Body Water % 45.5 Body Water Mass 106.2 Muscle Mass/Score 141.6 Basal Metabolic Rate/Score 2,036 Intake Visit Reasons: (OV) 7 Days PO LSG 04/02/23 Allergies oxycodone [From Percocet] Adverse Reaction (Verified 04/09/23 10:47) Anxiety HPI HPI Comments History of Present Illness Details The patient is a pleasant 47-year-old female who returns to the office today, postop day 7., status post laparoscopic sleeve gastrectomy and hiatal hernia repair performed on 04/02/2023. She states that she has been doing to celebrate 4 in 1 shakes with 1 scoop each. There was a possible miscommunication as I think she should have been doing 3 shakes with 1 scoop each she has only been drinking approximately 32 oz of fluids and this was discussed in depth how important it is to drink at least 40- 50 oz of fluid daily. Positive bowel movement. No significant abdominal pain. [facility] Medical History (Updated 04/04/23 @ 00:03 by Heriberto Bernstein) Sleep apnea Morbid obesity Hypertension Surgical History (Updated 04/09/23 @ 10:48 by Eva Cook CMA) S/P laparoscopic sleeve gastrectomy Hx of right knee surgery Hx of umbilical hernia repair Hx of appendectomy Hx of section Family History Mother No problems noted. Father Cancer Sister No problems noted. Sister No problems noted. Son No problems noted. Son No problems noted. Son No problems noted. Daughter No problems noted. Social History Household Members: Family Housing: House Are you a primary acute care occupational therapist to a significant other at home: No Do you presently have visiting nurse or other home services: No Alcohol intake: never Patient Tobacco Use Status: Never used Tobacco Tobacco use type: Cigarette service: No Physical Exam Vital Signs: Last Vital Signs Temp 97.8 F 04/09/23 10:57 Pulse 77 04/09/23 10:57 BP 124/64 04/09/23 10:57 Pulse Ox 98 04/09/23 10:57 Oxygen Delivery Method Room Air 04/09/23 10:57 BMI result Body Mass Index 42.7 GI Inspection: Yes incision (c/d/i) Assessment & Plan Assessment & Plan (1) S/P laparoscopic sleeve gastrectomy: Code(s): Z98.84 - Bariatric surgery status Plan: POD 7 s/p LSG/HH on 04/02/[address] Orellana Weight loss prior to surgery was 22.8 pounds or 8.5 % TBWL. Original weight on 10/22/2022 was 267.2 pounds and op weight was 244.4 pounds. Be sure to text Dr Orellana exactly 1 week after surgery your weight from your home scale so he can adjust your meal plan. Continue meal plan until f/u w Giselle in 2 weeks May shower, no submersion in bath for another week Continue abdominal binder with activity and exercise for the next 2 weeks. Exercise prior to surgery was elliptical and stationary bike, may resume No abdominal exercises for 6 weeks post operatively Will be emailed link to post op video for review Reminded of the pace of drinking, 2 mL per minute, 1 oz/15 min. Re: HTN She has been checking her BP at home and 1 teens/80s with specific instructions from Dr. Mendez about when to take or hold her medication. She has only taken her medication, half tab, x1, since surgery. Coding Level of Care Code Global (02219) Diagnoses S/P laparoscopic sleeve gastrectomy Z98.84
[2023-04-09 10:57] VITALS: BP 124/64; PULSE 77; TEMP 36.6; O2SAT 98; BMI 42.7
== END 2023-04-09 11:28 | disposition home or self-care (01) ==
PROVIDERS: PCP Internal Medicine; Visit Provider Physician Assistant Surgical
DX: Z98.84 Bariatric surgery status (principal)
CPT/HCPCS: 99024

== ENCOUNTER → 2023-04-09 10:23 | Outpatient (BNVA) | payer OTHER, SELFPAY | PROVIDERS: PCP Internal Medicine; Visit Provider Physician Assistant Surgical ==

== ENCOUNTER 2023-04-23 10:01 | Outpatient (AMB) | payer OTHER, SELFPAY ==
--- NOTE | 2023-04-23 10:05 | A.OFFVIS_ITS ---
Intake VS Expanded 04/23/23 10:09 BP 131/70 Blood Pressure Location Rt brachial Blood Pressure Position Sitting Pulse 70 Pulse Source Pulse Oximeter Temp 97.3 F Temperature Source Temporal Artery Scan Pulse Oximetry 98 Oxygen Delivery Method Room Air Height 5 ft 2 in Weight 225 lb BMI 41.1 Body Fat % 36.5 Body Fat Mass 82.0 Fat Free Mass 142.8 Visceral Fat Rating 11.0 Body Water % 45.3 Body Water Mass 101.8 Muscle Mass/Score 135.6 Basal Metabolic Rate/Score 1,949 Intake Visit Reasons: (OV) PO LSG 04/02/23 Allergies oxycodone [From Percocet] Adverse Reaction (Verified 04/23/23 10:07) Anxiety Medication List - Last Reconciled 04/23/23 by Giselle Xiao PA-C blood pressure test kit-large ([employer] Blood Pressure Monitor kit) As directed pantoprazole 40 mg PO DAILY@0630 sucralfate 10 mL PO BID HPI HPI Comments History of Present Illness Details 47 yo woman now 3 weeks s/p LSG and KARINE mendez epaivon with Dr Mendez on 04/02/23. No n/v/abd pain or reflux. 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 Lost 8 obs in 2 weeks. No n/v, abd pain or reflux. Has stopped all HTN meds - SBP at home 106- 116 Water - 16 ounces daily. She thought she coudln ot drink more - but she is very thirsty Patient states that she wants to eat food, but has not discussed with Dr Mendez yet. Meal plan per Dr Mendez: 8am - 4:1 shake 2scoops with UAM 11 am - same shake 2 pm - 4:1 shake 1 scoop with 8 oz UAM 4 pm - pm - bar, 6 pieces every 30 minut es. Exercise per Dr Mendez: bikes 7 days for 30 minutes, gonzalez 300 calories daily. [facility] Medical History (Updated 04/04/23 @ 00:03 by Heriberto Bernstein) Sleep apnea Morbid obesity Hypertension Surgical History S/P laparoscopic sleeve gastrectomy Hx of right knee surgery Hx of umbilical hernia repair Hx of appendectomy Hx of section Family History Mother No problems noted. Father Cancer Sister No problems noted. Sister No problems noted. Son No problems noted. Son No problems noted. Son No problems noted. Daughter No problems noted. Household Members: Family Housing: House Are you a primary district manager primary care sales to a significant other at home: No Do you presently have visiting nurse or other home services: No Alcohol intake: never Patient Tobacco Use Status: Never used Tobacco Tobacco use type: Cigarette service: No Physical Exam GI Inspection: Yes incision (c/d/i with steri strips) Palpation (GI): Soft to palpation and nontender Assessment & Plan Assessment & Plan (1) S/P laparoscopic sleeve gastrectomy: Code(s): Z98.84 - Bariatric surgery status Plan: Now 3 weeks post op - doing well averaging 4 lbs weight loss per week. Wants soem meal plan changes - I advised her to text Dr Mendez today for any changes to plan. Continue present exericse cindy - can start ellipitcal at 4 weeks post op. Educated her that she can drink from 40 - 60 ounces in total per day - was not drinking enough water and was feeling thristy. Next appt with me in 3 weeks. (2) S/P repair of paraesophageal hernia: Code(s): Z98.890 - Other specified postprocedural states; Z87.19 - Personal history of other diseases of the digestive system (3) Sleep apnea: Code(s): G47.30 - Sleep apnea, unspecified (4) Hypertension: Code(s): I10 - Essential (primary) hypertension Coding Level of Care Code Global (84759) Diagnoses S/P laparoscopic sleeve gastrectomy Z98.84 S/P repair of paraesophageal hernia Z98.890; Z87.19 Sleep apnea G47.30 Hypertension I10
[2023-04-23 10:09] VITALS: BP 131/70; PULSE 70; TEMP 36.3; O2SAT 98; BMI 41.1
== END 2023-04-23 10:33 | disposition home or self-care (01) ==
PROVIDERS: PCP Internal Medicine; Visit Provider Physician Assistant
DX: Z98.84 Bariatric surgery status (principal); Z98.890 Other specified postprocedural states; Z87.19 Personal history of other diseases of the digestive system; G47.30 Sleep apnea, unspecified; I10 Essential (primary) hypertension
CPT/HCPCS: 99024

== ENCOUNTER → 2023-04-23 10:01 | Outpatient (BNVA) | payer OTHER, SELFPAY | PROVIDERS: PCP Internal Medicine; Visit Provider Physician Assistant ==

== ENCOUNTER 2023-05-16 08:30 | Outpatient (AMB) | payer OTHER, SELFPAY ==
--- NOTE | 2023-05-16 08:33 | MHC.OFFVISWM ---
Intake VS Expanded 05/16/23 08:38 Height 5 ft 2 in Weight 215 lb BMI 39.3 Intake Visit Reasons: VIDEO PO LSG 04/02/23 Allergies oxycodone [From Percocet] Adverse Reaction (Verified 04/23/23 10:07) Anxiety Medication List - Last Reconciled 05/16/23 by Giselle Xiao PA-C blood pressure test kit-large ([employer] Blood Pressure Monitor kit) As directed pantoprazole 40 mg PO DAILY@0630 sucralfate 10 mL PO BID HPI HPI Comments History of Present Illness Details Pt is now 5 weeks s/p LSG and HH repair. No n/v/reflux or abd pain. Present meal plan per Dr Mendez, does not feel that she would like to have something to eat. 6am - 4:1 1 scoop with water - over 2 hours 9am - same shake 12 pm - Zone bar over 2 hours 3pm - same shake 6pm - same shake 9pm - bar over 2 hours Exercise - bike at home 5d week, 30- 40 minutes- machine does not tell her calories burned. Wants to start elliptical at gym now. [facility] Medical History (Updated 04/04/23 @ 00:03 by Heriberto Bernstein) Sleep apnea Morbid obesity Hypertension Surgical History S/P laparoscopic sleeve gastrectomy Hx of right knee surgery Hx of umbilical hernia repair Hx of appendectomy Hx of section Family History Mother No problems noted. Father Cancer Sister No problems noted. Sister No problems noted. Son No problems noted. Son No problems noted. Son No problems noted. Daughter No problems noted. Social History Household Members: Family Housing: House Are you a primary field care coordinator to a significant other at home: No Do you presently have visiting nurse or other home services: No Alcohol intake: never Patient Tobacco Use Status: Never used Tobacco Tobacco use type: Cigarette service: No Assessment & Plan Assessment & Plan (1) S/P laparoscopic sleeve gastrectomy: Code(s): Z98.84 - Bariatric surgery status Plan: Lost 10 lbs over 2 weeks.Wants to start food and elliptical now. Start new job Jun 05 - will need to restart bicycle. Meal plan: 6am - 4:1 1 scoop with water - over 2 hours 9am - same shake 12 pm - 1 scrambled egg - nothing to drink30 minutes before or after meal 3pm - same shake 6pm - same shake 9pm - bar over 2 hours Exercise - restart elliptical now - 5 d/ week for 300 calories this week and increase to 400 calories over 2 weeks. Goal burn 2,000 dawson/ week. Next appt in 4 weeks. Will text me weights weekly on Tuesdays. (2) S/P repair of paraesophageal hernia: Code(s): Z98.890 - Other specified postprocedural states; Z87.19 - Personal history of other diseases of the digestive system Plan see above Telehealth Telehealth Location of provider rendering services: practice address Location of patient: address on file Patient Identification confirmed using: Name, : Yes Telehealth method: video Patient verbally consented to treatment: Yes Patient verbally consented to billing insurance company: Yes Patient informed of any privacy concerns related to visit: Yes Coding Level of Care Code Global (18512) Diagnoses S/P laparoscopic sleeve gastrectomy Z98.84 S/P repair of paraesophageal hernia Z98.890; Z87.19
[2023-05-16 08:38] VITALS: BMI 39.3
== END 2023-05-16 09:25 | disposition home or self-care (01) ==
LOC: HO.HBS 08:52
PROVIDERS: PCP Internal Medicine; Visit Provider Physician Assistant
DX: Z98.84 Bariatric surgery status (principal); Z98.890 Other specified postprocedural states; Z87.19 Personal history of other diseases of the digestive system
CPT/HCPCS: 99024

== ENCOUNTER → 2023-05-16 08:30 | Outpatient (BNVA) | payer OTHER, SELFPAY | PROVIDERS: PCP Internal Medicine; Visit Provider Physician Assistant | DX: E66.01 Morbid (severe) obesity due to excess calories (principal); Z68.39 Body mass index [BMI] 39.0-39.9, adult; Z98.84 Bariatric surgery status; Z98.890 Other specified postprocedural states; Z87.19 Personal history of other diseases of the digestive system | CPT/HCPCS: 99212 ==

== ENCOUNTER 2023-06-19 13:19 | Outpatient (AMB) | payer OTHER, SELFPAY ==
--- NOTE | 2023-06-19 13:23 | A.OFFPC_ITS ---
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 Transferring care from Unknown. Medical records have not been requested and have not received. 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 Estate Sales Agent Required: No Forensics Team Director: Not Required per policy Accompanied by: Self / Same As Patient Allergies oxycodone [From Percocet] Adverse Reaction (Verified 06/19/23 13:55) Anxiety Medication List - Last Reconciled 06/19/23 by Delbert Moncada MD blood pressure test kit-large ([employer] Blood Pressure Monitor kit) As directed pantoprazole 40 mg PO DAILY@0630 sucralfate 10 mL PO BID Tobacco use date assessed: 06/19/23 Dental Screening Dental Screen Date: 06/19/23 Did you have a dental visit in the last 12 months?: Yes Did you have a dental problem in the last 6 months where you did not have access to dental care?: No Was dental information given to patient?: Patient has dentist HPI Research Chemist Chronic Care F/U (Bp Medications) HPI Details 48-year-old female presents to the offic e requesting to establish her care over here. She last saw a primary care provider more than 2 years ago in [place]. She underwent bariatric surgery in March. The procedure went well and she has lost 85 lb. Tries to exercise 3 to 4 times a week, on the bike for 45 minutes. Continues to be on a special diet started by the weight loss surgeon. [facility] Medical History Sleep apnea Morbid obesity Hypertension Surgical History S/P laparoscopic sleeve gastrectomy Hx of right knee surgery Hx of umbilical hernia repair Hx of appendectomy Hx of section Family History Mother No problems noted. Father Cancer Sister No problems noted. Sister No problems noted. Son No problems noted. Son No problems noted. Son No problems noted. Daughter No problems noted. Social History Household Members: Family Housing: Apartment Are you a primary intensive care nurse to a significant other at home: No Do you presently have visiting nurse or other home services: No Alcohol intake: never Patient Tobacco Use Status: Never used Tobacco Tobacco use type: Cigarette e-Cigarette/Vaping Use: Never Used Second Hand Smoke Exposure: No service: No Current occupational status: unemployed Cognitive needs: No Hearing needs: No Vision needs: Yes (glasses) Questionnaire PHQ-9 Over the last 2 weeks, how often have you been bothered by any of the following problems? 1. Little interest or pleasure in doing things: not at all 2. Feeling down, depressed, or hopeless: not at all 3. Trouble falling or staying asleep, or sleeping too much: not at all 4. Feeling tired or having little energy: not at all 5. Poor appetite or overeating: not at all 6. Feeling bad about yourself - or that you are a failure or have let yourself or your family down: not at all 7. Trouble concentrating on things, such as reading the newspaper or watching television: not at all 8. Moving or speaking so slowly that other people could have noticed. Or the opposite - being so fidgety or restless that you have been moving around a lot more than usual: not at all 9. Thoughts that you would be better off or of hurting yourself in some way: not at all Total score: 0 Depression Screening Interpretation: Negative Depression Screening Done: Yes Source: Developed by Drs. Ulices Saucedo, Rebecca Appiah, Kasi Smith and colleagues, with an educational juju from [employer]. Thrive Questionnaire Date Thrive assessed: 06/19/23 I am a: Patient What is your living situation today?: I have a steady place to live Within the past 12 months, did the food you bought not last and you didn't have the money to get more?: Never true Within the past 12 months, did you worry whether your food would run out before you got money to buy more?: Never true Do you have trouble paying for medicines?: No Do you have trouble getting transportation to medical appointments?: No Do you have trouble paying your heating and electricity bill?: No Do you have trouble taking care of your child, family member or friend?: No Do you have trouble with day-to-day activities such as bathing, preparing meals, shopping, managing finances, etc.?: No Are you currently unemployed and looking for a job?: No Are you interested in more education?: No AUDIT C Alcohol Use Questionnaire (AUDIT-C) 1. How often do you have a drink containing alcohol?: Never Total Score: 0 NEREIDA-7 AMB Questionnaire NEREIDA-7 Date NEREIDA - 7 assessed: 06/19/23 Feeling nervous, anxious, or on edge: 0 = Not at all Not being able to stop or control worryin = Not at all Worrying too much about different things: 0 = Not at all Trouble relaxin = Not at all Being so restless that it is hard to sit still: 0 = Not at all Becoming easily annoyed or irritable: 0 = Not at all Feeling afraid as if something awful might happen: 0 = Not at all Total NEREIDA-7 score (0-4 normal; 5-9 mild; 10-14 moderate; 15-21 severe): 0 Source: Developed by Drs. Ulices Saucedo, Rebecca Appiah, Kasi Smith and colleagues, with an educational juju from [employer]. Physical exam (Primary Care) Tobacco/Smoking Status: Tobacco use Status Patient Tobacco Use Status Never used Tobacco 04/03/23 08:39 Tobacco use type Cigarette 03/27/23 15:50 Depression Screening Interpretation: Negative Thrive Assessment: Date of Thrive Assessment Date Thrive assessed 04/03/23 04/03/23 09:46 Const General: cooperative and healthy appearing Nutritional Appearance: well nourished Orientation/consciousness: patient oriented x3 Limitations: no limitations HENMT Head: Yes normal to inspection Eyes General: appearance normal, both eyes and all related structures Neck Neck: Yes normal visual inspection Chest Chest palpation & inspection: normal palpation of entire chest wall Resp Effort & Inspection: normal respiratory effort Neuro General: patient oriented x3 Assessment and Plan Assessment & Plan (1) Hypertension: Code(s): I10 - Essential (primary) hypertension Plan: Blood pressure is in range without any medications. Continue current diet and exercise. Blood work has been ordered. Patient declined the flu vaccine. (2) Morbid obesity: Code(s): E66.01 - Morbid (severe) obesity due to excess calories Plan: Patient has lost 85 lb. I encouraged her to keep the diet. Medications to protect the stomach will be discontinued soon. Coding Level of Care Code New Pt Level 4 (68660) Diagnoses Hypertension I10 Morbid obesity E66.01
[2023-06-19 13:25] VITALS: BP 120/70; PULSE 66; O2SAT 98; BMI 37.8
== END 2023-06-19 13:48 | disposition home or self-care (01) ==
PROVIDERS: PCP Internal Medicine; Visit Provider Internal Medicine
DX: I10 Essential (primary) hypertension (principal); E66.01 Morbid (severe) obesity due to excess calories; Z68.37 Body mass index [BMI] 37.0-37.9, adult
CPT/HCPCS: 99204

== ENCOUNTER 2023-06-19 14:02 | Outpatient (REF) | payer OTHER, SELFPAY ==
[2023-06-19 15:22] LABS: Appearance Urine Clear; Color Urine Dark Yellow; Glucose Urine UA Negative (Negative); Leukocyte Esterase Urine Small (1+) (Negative); Nitrite Urine Negative (Negative); PH 5.5 (5.0-9.0); Specific Gravity - Urine >= 1.030 (1.005-1.025); UMIC TRIGGER UA YES; Urine Blood Moderate (2+) (Negative); Urine Ketones Trace mg/dL (Negative); Urine Protein Negative (Neg-Trace)
[2023-06-19 15:24] LABS: Alanine Aminotransferase 18 U/L (0-31); Albumin Level 3.9 g/dL (3.5-5.0); Alkaline Phosphatase 74 U/L (39-117); Anion Gap 14 (12-20); Aspartate Amino Transferase 15 U/L (5-31); Bilirubin Direct 0.1 mg/dL (0.0-0.5); Bilirubin Total 0.4 mg/dL (0.0-1.0); Blood Urea Nitrogen 20 mg/dL (9-16); Calcium 9.6 mg/dL (8.4-10.2); Carbon Dioxide 21 mmol/L (22-29); Chloride 109 mmol/L (96-108); Cholesterol 146 mg/dL (<200); Estimated Glomerular Filt Rate > 60; Glucose Random 87 mg/dL (60-115); HDL Cholesterol 30 mg/dL (>40); LDL Cholesterol Calculated 93 mg/dL (<100); Potassium 3.6 mmol/L (3.3-5.1); Sodium 140 mmol/L (135-145); Total Protein 7.3 g/dL (6.5-8.0); Triglycerides 115 mg/dL (<150)
[2023-06-19 15:38] LABS: Thyroid Stimulating Hormone 0.97 uIU/mL (0.32-4.0)
[2023-06-19 15:38] LABS: Bacteria Urine 3+ (None Seen); Hyaline Casts Urine 0-2 /LPF (0-2); RBC Urine 0-2 /HPF (0-2)
== END 2023-06-19 14:03 | disposition home or self-care (01) ==
LOC: HO.LAB 14:02
PROVIDERS: PCP Internal Medicine; Visit Provider Internal Medicine
DX: I10 Essential (primary) hypertension (principal); E66.01 Morbid (severe) obesity due to excess calories
CPT/HCPCS: 36415; 80048; 80061; 80076; 81001; 81003; 84443

== ENCOUNTER 2023-07-04 14:00 | Outpatient (AMB) | payer OTHER, SELFPAY ==
--- NOTE | 2023-07-04 14:00 | MHC.OFFVISWM ---
Intake VS Expanded 07/04/23 14:05 Height 5 ft 1 in Weight 195 lb BMI 36.8 Intake Visit Reasons: VIDEO PO LSG 04/02/23 Allergies oxycodone [From Percocet] Adverse Reaction (Verified 06/19/23 13:55) Anxiety HPI HPI Comments History of Present Illness Details Pt is now 12 weeks s/p LSG and hernia repair. 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 Does not have her scale Meal plan: 7 am - 1 egg 10 am - bar 12 pm - 4:1 2 scoops 8 oz water 3 pm - sometimes another bar - or skips ot 5 pm - same shake 9pm - bar - a little Exercise - squats or weights. Walks every day 40 minutes - doesn't know calories PFSH Medical History Sleep apnea Morbid obesity Hypertension Surgical History S/P laparoscopic sleeve gastrectomy Hx of right knee surgery Hx of umbilical hernia repair Hx of appendectomy Hx of section Family History Mother No problems noted. Father Cancer Sister No problems noted. Sister No problems noted. Son No problems noted. Son No problems noted. Son No problems noted. Daughter No problems noted. Social History Household Members: Family Housing: Apartment Are you a primary hearing care professional to a significant other at home: No Do you presently have visiting nurse or other home services: No Alcohol intake: never Patient Tobacco Use Status: Never used Tobacco Tobacco use type: Cigarette e-Cigarette/Vaping Use: Never Used Second Hand Smoke Exposure: No service: No Current occupational status: unemployed Cognitive needs: No Hearing needs: No Vision needs: Yes (glasses) Assessment & Plan Assessment & Plan (1) Obesity: Code(s): E66.9 - Obesity, unspecified Plan: Wakes at 6:30 am. Will be going to , August 08 and wants to start bariatric vitmains and different shakes over the next few weeks. She will text me with accurate weight next week and we will make some changes. 9am - 4:1 shake 1pm - 1 egg and 2 forks of vegetables 4pm - another shake 7pm - bar When starts work again 7am - shake 11 am - egg and vegetables 3pm - shake 7pm - bar Exercise - needs to do speed walking daily of 2 miles at 20 minutes/mile. Weekly weights via text. I spent 24 minutes in total speaking with the patient via video conference counseling , reviewing records and charting in patients chart. . (2) S/P laparoscopic sleeve gastrectomy: Code(s): Z98.84 - Bariatric surgery status Plan see above Telehealth Telehealth Location of provider rendering services: practice address Location of patient: address on file Patient Identification confirmed using: Name, : Yes Telehealth method: voice only Patient verbally consented to treatment: Yes Patient verbally consented to billing insurance company: Yes Patient informed of any privacy concerns related to visit: Yes Coding Level of Care Code Tele Est Pt Level 4 (00511) Diagnoses Obesity E66.9 S/P laparoscopic sleeve gastrectomy Z98.84
[2023-07-04 14:05] VITALS: BMI 36.8
== END 2023-07-04 14:30 | disposition home or self-care (01) ==
LOC: HO.HBS 14:28
PROVIDERS: PCP Internal Medicine; Visit Provider Physician Assistant
DX: E66.9 Obesity, unspecified (principal); Z98.84 Bariatric surgery status
CPT/HCPCS: 99214

== ENCOUNTER → 2023-07-04 14:00 | Outpatient (BNVA) | payer OTHER, SELFPAY | PROVIDERS: PCP Internal Medicine; Visit Provider Physician Assistant | DX: E66.9 Obesity, unspecified (principal); Z98.84 Bariatric surgery status ==

== ENCOUNTER 2023-10-07 13:41 | Outpatient (AMB) | payer OTHER, SELFPAY ==
--- NOTE | 2023-10-07 13:26 | A.OFFVIS_ITS ---
VS Expanded 10/07/23 13:39 Height 5 ft 1 in Weight 186 lb 4 oz BMI 35.2 Intake Visit Reasons: (TV) PO LSG 04/02/23 Allergies oxycodone [From Percocet] Adverse Reaction (Verified 06/19/23 13:55) Anxiety Medication List - Last Reconciled 10/07/23 by [facility] blood pressure test kit-large ([employer] Blood Pressure Monitor kit) As directed clotrimazole 1% 1 appl topical BID HPI Comments Details: This?is a?48?yo female who is s/p LSG 04/02/2023. Presents for 6 month post op visit. Weight at last visit on 07/04/2023 was 195 pounds with a BMI of 36.8, weight today is 186.4 pounds, representing a [] pound weight loss with a BMI today of [].? No complaints of nausea, emesis, abdominal pain or reflux, or constipation. Present meal plan includes: 7am - shake, 4:1 2 scoops 11 am - egg and vegetables 3pm - shake 7pm - bar Pt has been having breakfast - 1 egg, then 2 shakes, then sometimes a bar. Pt reports some episodes of chills and feeling shaky; added 25g protein yogurt. Exercise - walking 2 miles at 20 minutes/mile. Weight training Pt reports problems of excess skin of abdomen. Pt has noticed itchy rashes starting to occur. Has moisture collecting in umbilius which has an unpleasant smell. Has had to wear a binder to hold excess skin in place; excess skin is very heavy and causes her posture to suffer. Difficult to exercise to full capacity due to discomfort. Pt also reports problems of excess skin of upper arms. Starting to get rashes due to friction of skin rubbing against her body. Has tried compressive arms sleeves to hold skin in place. Walking is more difficult due to arm swing and wo rsening friction. Difficult to exercise due to friction. [facility] Medical History Sleep apnea Morbid obesity Hypertension Surgical History S/P laparoscopic sleeve gastrectomy Hx of right knee surgery Hx of umbilical hernia repair Hx of appendectomy Hx of section Family History Mother No problems noted. Father Cancer Sister No problems noted. Sister No problems noted. Son No problems noted. Son No problems noted. Son No problems noted. Daughter No problems noted. Social History Household Members: Family Housing: Apartment Are you a primary palliative care coordinator to a significant other at home: No Do you presently have visiting nurse or other home services: No Alcohol intake: never Patient Tobacco Use Status: Never used Tobacco Tobacco use type: Cigarette e-Cigarette/Vaping Use: Never Used Second Hand Smoke Exposure: No service: No Current occupational status: unemployed Cognitive needs: No Hearing needs: No Vision needs: Yes (glasses) Telehealth Telehealth Telehealth Platform: Telephone Location of provider rendering services: practice address Location of patient: address on file Patient Identification confirmed using: Name, : Yes Telehealth method: voice only Patient verbally consented to treatment: Yes Patient verbally consented to billing insurance company: Yes Patient informed of any privacy concerns related to visit: Yes Minutes spent on Phone/Video with Pt.: 15 Assessment & Plan Assessment & Plan (1) Obesity: Code(s): E66.9 - Obesity, unspecified Category: Medical (2) S/P laparoscopic sleeve gastrectomy: Code(s): Z98.84 - Bariatric surgery status Category: Surgical Plan No changes made to meal plan. If pt is getting 2 shakes with 2 scoops, 1 ratio yogurt, and 1 egg should be getting adequate protein. She was mixing slimfast shakes with her powder so I recommended she not do that to avoid getting too much protein in shakes. Clotrimazole ointment sent to pharmacy for rashes of excess skin. Pt reports hair loss, may use biotin. Labs ordered. RTC 3 months. Texted pt my contact info and encouraged her to reach out between visits with any questions. Patient is obese and is not considered stable at this time. I spent a total of 30 minutes reviewing/updating records, examining the patient and counseling the patient on weight management as detailed above. Orders: Orders Insulin Today E66.9 - Obesity, unspecified, Z98.84 - Bariatric surgery status Hemoglobin A1c Today E66.9 - Obesity, unspecified, Z98.84 - Bariatric surgery status Lipid Panel Today E66.9 - Obesity, unspecified, Z98.84 - Bariatric surgery status Comprehensive Met. Panel Today E66.9 - Obesity, unspecified, Z98.84 - Bariatric surgery status Zinc Today E66.9 - Obesity, unspecified, Z98.84 - Bariatric surgery status C Reactive Protein Today E66.9 - Obesity, unspecified, Z98.84 - Bariatric surgery status Vitamin B1 Today E66.9 - Obesity, unspecified, Z98.84 - Bariatric surgery status Vitamin A Today E66.9 - Obesity, unspecified, Z98.84 - Bariatric surgery status Ferritin Today E66.9 - Obesity, unspecified, Z98.84 - Bariatric surgery status Vitamin D 25-OH Total Today E66.9 - Obesity, unspecified, Z98.84 - Bariatric surgery status Complete Blood Count Auto Diff Today E66.9 - Obesity, unspecified, Z98.84 - Bariatric surgery status IRON PROFILE Today E66.9 - Obesity, unspecified, Z98.84 - Bariatric surgery status Vitamin B12 and Folate Today E66.9 - Obesity, unspecified, Z98.84 - Bariatric surgery status TSH reflex Free T4 Today E66.9 - Obesity, unspecified, Z98.84 - Bariatric surgery status Medications: New clotrimazole 1% 1 appl topical BID 45 grams 3RF
[2023-10-07 13:39] VITALS: BMI 35.2
== END 2023-10-07 13:50 | disposition home or self-care (01) ==
LOC: HO.HBS 13:41
PROVIDERS: PCP Internal Medicine; Visit Provider Physician Assistant Surgical
DX: E66.9 Obesity, unspecified (principal); Z98.84 Bariatric surgery status
CPT/HCPCS: 99214

== ENCOUNTER → 2023-10-07 13:41 | Outpatient (BNVA) | payer OTHER, SELFPAY | PROVIDERS: PCP Internal Medicine; Visit Provider Physician Assistant Surgical ==

== ENCOUNTER 2023-10-11 06:05 | Outpatient (REF) | payer OTHER, SELFPAY ==
--- NOTE | ~2023-10-11 | MM_ITS ---
EXAMINATION: MM SCREENING DIGITAL BREAST TOMOSYNTHESIS, BILATERAL CLINICAL INFORMATION: Screening. Asymptomatic. COMPARISON: Mammography: There are no prior mammograms available for comparison. TECHNIQUE: Digital breast tomosynthesis is performed in both the craniocaudal and mediolateral oblique views along with computer-aided detection (CAD). Synthesized 2D images are generated from the tomosynthesis. FINDINGS: There are scattered areas of fibroglandular density (ACR BI-RADS breast composition Category b). There are no significant masses, abnormal calcifications, or other abnormalities. MM/MM tomosynthesis screening BI IMPRESSION: No mammographic evidence of malignancy. ASSESSMENT: BI-RADS BI-RADS 1 - Negative RECOMMENDATION: Routine annual mammography screening. 1 year F/U This examination should not preclude the clinical evaluation of a suspicious palpable abnormality. This patient's information was entered into a reminder system with a target due date for their next mammogram.
[2023-10-11 06:29] LABS: MANUAL DIFF FLAG NO
[2023-10-11 07:54] LABS: Basophils Percent Auto 0.9 % (0-2); Eosinophils Absolute Auto 0.1 X10*3/uL (0.0-0.4); Eosinophils Percent Auto 2.4 % (0-4); Hematocrit 29.1 % (37.0-47.0); Lymphocytes Absolute Auto 1.7 X10*3/uL (1.2-4.9); Mean Corpuscular HGB Conc 30.9 g/dl (31.0-35.0); Mean Corpuscular Hemoglobin 24.5 pg (27.0-33.0); Mean Corpuscular Volume 79.1 fL (80.0-98.0); Mean Platelet Volume 10.1 fL (9.4-12.3); Monocytes Absolute Auto 0.3 X10*3/uL (0.1-1.2); Monocytes Percent Auto 6.7 % (2-11); Neutrophils Absolute Auto 2.5 x10*3/uL (2.0-8.3); Platelet Count 306 X10*3/uL (160-400); Red Blood Count 3.68 X10*6/uL (4.20-5.50); Red Cell Distribution Width 14.5 % (11.0-16.0); White Blood Count 4.7 X10*3/uL (4.8-10.8)
[2023-10-11 07:55] LABS: Estimated Average Glucose 111 mg/dL; Hemoglobin A1c % 5.5 % (<6.0)
[2023-10-11 08:21] LABS: Alanine Aminotransferase 12 U/L (0-31); Alkaline Phosphatase 83 U/L (39-117); Anion Gap 16 (12-20); Aspartate Amino Transferase 13 U/L (5-31); Bilirubin Total 0.3 mg/dL (0.0-1.0); Blood Urea Nitrogen 17 mg/dL (9-16); C Reactive Protein 0.22 mg/dL (< or = 0.50); Calcium 9.8 mg/dL (8.4-10.2); Carbon Dioxide 23 mmol/L (22-29); Chloride 106 mmol/L (96-108); Cholesterol 157 mg/dL (<200); Estimated Glomerular Filt Rate > 60; Glucose Random 82 mg/dL (60-115); HDL Cholesterol 49 mg/dL (>40); Iron 21 mcg/dL (30-160); LDL Cholesterol Calculated 89 mg/dL (<100); Percent Iron Saturation 5 % (15-50); Potassium 4.1 mmol/L (3.3-5.1); Sodium 141 mmol/L (135-145); Total Iron Binding Capacity 384 mcg/dL (228-428); Total Protein 7.3 g/dL (6.5-8.0); Triglycerides 98 mg/dL (<150); Unsaturated Iron Binding 363 ug/dL
[2023-10-11 08:40] LABS: Ferritin 5 ng/mL (10-250); Insulin 4 uU/mL (2-29); TSH reflex Free T4 1.13 uIU/mL (0.32-4.0)
[2023-10-11 08:42] LABS: Vitamin B12 657 pg/mL (200-900)
[2023-10-15 23:02] LABS: Zinc 77 mcg/dL (60-130)
[2023-10-16 18:38] LABS: Vitamin A 32 mcg/dL (38-98)
[2023-10-17 15:28] LABS: Vitamin B1 25 nmol/L (8-30)
== END 2023-10-11 06:06 | disposition home or self-care (01) ==
LOC: HO.MAMMO 06:05
PROVIDERS: Absent Provider Physician Assistant Surgical; PCP Internal Medicine; Visit Provider Internal Medicine
DX: Z12.31 Encounter for screening mammogram for malignant neoplasm of breast (principal); E66.9 Obesity, unspecified; Z98.84 Bariatric surgery status
CPT/HCPCS: 36415; 77063; 77067; 80053; 80061; 82306; 82607; 82728; 82746; 83036; 83525; 83540; 84425; 84443; 84590; 84630; 85025; 86140

== ENCOUNTER → 2023-10-11 13:30 | Outpatient (BNV) | payer OTHER, SELFPAY | PROVIDERS: Absent Provider Physician Assistant Surgical; PCP Internal Medicine; Visit Provider Radiology Diagnostic Radiology | DX: Z12.31 Encounter for screening mammogram for malignant neoplasm of breast (principal) | CPT/HCPCS: 77063; 77067 ==

== ENCOUNTER 2024-02-26 09:59 | Outpatient (AMB) | payer OTHER, SELFPAY ==
--- NOTE | 2024-02-26 13:35 | A.OFFVIS_ITS ---
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 Presents for 11 month post op visit. Weight at last visit on 10/07/2023 was 186.4 pounds with a BMI of 35.2, weight today is down 2.4lbs.? No complaints of nausea, emesis, abdominal pain or reflux, or constipation. Present meal plan includes: 7am - egg and vegetables 11 am - shake, 4:1 2 scoops 3pm - shake 7pm - Zone bar taking collagen supplement for hair loss Pt reports all my joints hurt, especially my hips. Admittedly has not been eating to plan until last week. Exercise - started gym last week, burning 250-300 dawson Pt reports problems of excess skin of abdomen. Pt has noticed itchy rashes starting to occur. Has moisture collecting in umbilius which has an unpleasant smell. Has had to wear a binder to hold excess skin in place; excess skin is very heavy and causes her posture to suffer. Difficult to exercise to full capacity due to discomfort. Pt also reports problems of excess skin of upper arms. Starting to get rashes due to friction of skin rubbing against her body. Has tried compressive arms sleeves to hold skin in place. Walking is more difficult due to arm swing and worsening friction. Difficult to exercise due to friction. [facility] [place] Medical History Sleep apnea Morbid obesity Hypertension Surgical History S/P laparoscopic sleeve gastrectomy Hx of right knee surgery Hx of umbilical hernia repair Hx of appendectomy Hx of section Family History Mother No problems noted. Father Cancer Sister No problems noted. Sister No problems noted. Son No problems noted. Son No problems noted. Son No problems noted. Daughter No problems noted. Social History Household Members: Family Housing: Apartment Are you a primary gericare aide teacher to a significant other at home: No Do you presently have visiting nurse or other home services: No Alcohol intake: never Patient Tobacco Use Status: Never used Tobacco Tobacco use type: Cigarette e-Cigarette/Vaping Use: Never Used Second Hand Smoke Exposure: No service: No Current occupational status: unemployed Cognitive needs: No Hearing needs: No Vision needs: Yes (glasses) Assessment & Plan Assessment & Plan (1) Obesity: Code(s): E66.9 - Obesity, unspecified Category: Medical (2) S/P laparoscopic sleeve gastrectomy: Code(s): Z98.84 - Bariatric surgery status Category: Medical Plan Discussed requirements for skin removal surgery, BMI closer to 27. Reiterated meal plan and getting adequate protein. Go back to egg for breakfast, 2 shakes 4:1 with 2 scoops each (or can do one of the shakes with 1 scoop powder and 1 thai yogurt to make a smoothie), 1 Zone bar. Exercise goal 300 dawson/day. Clotrimazole refilled per pt request. Texted meal plan and encouraged pt to text me between appts with any questions. RTC 3 months. Annual labs at that time. I spent a total of 30 minutes reviewing/updating records, examining the patient and counseling the patient on weight management as detailed above. Medications: Refilled clotrimazole 1% 1 appl topical BID 45 grams 3RF
[2024-02-26 13:39] VITALS: BMI 34.8
== END 2024-02-26 13:54 | disposition home or self-care (01) ==
LOC: HO.HBS 09:59
PROVIDERS: PCP Internal Medicine; Visit Provider Physician Assistant Surgical
DX: E66.9 Obesity, unspecified (principal); Z98.84 Bariatric surgery status; Z68.34 Body mass index [BMI] 34.0-34.9, adult
CPT/HCPCS: 99214; G2211

== ENCOUNTER → 2024-02-26 09:59 | Outpatient (BNVA) | payer OTHER, SELFPAY | PROVIDERS: PCP Internal Medicine; Visit Provider Physician Assistant Surgical ==

== ENCOUNTER 2024-06-09 13:51 | Outpatient (AMB) | payer OTHER, SELFPAY ==
--- NOTE | 2024-06-09 13:31 | MHC.OFFVISWM ---
VS Expanded 06/09/24 13:36 Height 5 ft 3 in Weight 167 lb BMI 29.6 Intake Visit Reasons: TELEPHONE PO LSG 04/02/23 Allergies oxycodone [From Percocet] Adverse Reaction (Verified 06/19/23 13:55) Anxiety Medication List - Last Reconciled 06/09/24 by [facility] blood pressure test kit-large ([employer] Blood Pressure Monitor kit) As directed clotrimazole 1% 1 appl topical BID iron,carbonyl-vitamin C 65 mg iron- 125 mg (Vitron-C) 1 tab PO BEDTIME vitamin A palmitate 10,000 units PO DAILY HPI Comments Details: This?is a?48?yo female who is s/p LSG 04/02/2023. Presents for 15 month post op visit. Weight at last visit on 02/26/2024 was 184 pounds with a BMI of 34.8, weight today is 167 pounds, representing a 17 pound weight loss with a BMI today of 29.6.? No complaints of nausea, emesis, abdominal pain or reflux, or constipation. Started hair/skin/nails supplement for hair loss. Present meal plan includes: egg for breakfast, 2 shakes 4:1 with 2 scoops each (or can do one of the shakes with 1 scoop powder and 1 armenian yogurt to make a smoothie), 1 Zone bar recommended at last visit- pt reports trying to follow this plan closely did eat some off plan items during holidays Exercise routine includes: gym- has increased her exercise since last visit Pt reports problems of excess skin of abdomen. Pt has noticed itchy rashes starting to occur. Has moisture collecting in umbilius which has an unpleasant smell. Has had to wear a binder to hold excess skin in place; excess skin is very heavy and causes her posture to suffer. Difficult to exercise to full capacity due to discomfort. Pt also reports problems of excess skin of upper arms. Starting to get rashes due to friction of skin rubbing against her body. Has tried compressive arms sleeves to hold skin in place. Walking is more difficult due to arm swing and worsening friction. Difficult to exercise due to friction. [facility] Medical History Sleep apnea Morbid obesity Hypertension Surgical History S/P laparoscopic sleeve gastrectomy Hx of right knee surgery Hx of umbilical hernia repair Hx of appendectomy Hx of section Family History Mother No problems noted. Father Cancer Sister No problems noted. Sister No problems noted. Son No problems noted. Son No problems noted. Son No problems noted. Daughter No problems noted. Social History Household Members: Family Housing: Apartment Are you a primary resident care director to a significant other at home: No Do you presently have visiting nurse or other home services: No Alcohol intake: never Patient Tobacco Use Status: Never used Tobacco Tobacco use type: Cigarette e-Cigarette/Vaping Use: Never Used Second Hand Smoke Exposure: No service: No Current occupational status: unemployed Cognitive needs: No Hearing needs: No Vision needs: Yes (glasses) Telehealth Telehealth Telehealth Platform: Telephone Location of provider rendering services: practice address Location of patient: address on file Patient Identification confirmed using: Name, : Yes Telehealth method: voice only Patient verbally consented to treatment: Yes Patient verbally consented to billing insurance company: Yes Patient informed of any privacy concerns related to visit: Yes Minutes spent on Phone/Video with Pt.: 15 Assessment & Plan Assessment & Plan (1) S/P laparoscopic sleeve gastrectomy: Code(s): Z98.84 - Bariatric surgery status Category: Surgical (2) Overweight: Code(s): E66.3 - Overweight Category: Medical Plan Pt has done well adjusting meal plan and increasing exercise. Continues to have problems of excess skin of arms and abdomen. She reports her height is 5'2 or 5'3. Can measure next time she is in office. We discussed that her BMI needs to be closer to 27 prior to skin removal surgery. Clotrimazole ointment refilled. Labs ordered. Will attempt to resend iron rx- pt reports her pharmacy was out of it previously. Pt to RTC in 3 months for in person visit- physical exam, possible photos if close to BMI 27. I spent a total of 30 minutes reviewing/updating records, examining the patient and counseling the patient on weight management as detailed above. Orders: Orders Hemoglobin A1c Today Z98.84 - Bariatric surgery status Complete Blood Count Auto Diff Today Z98.84 - Bariatric surgery status Lipid Panel Today Z.84 - Bariatric surgery status IRON PROFILE Today Z.84 - Bariatric surgery status Comprehensive Met. Panel Today Z.84 - Bariatric surgery status C Reactive Protein Today Z98.84 - Bariatric surgery status Vitamin A Today Z98.84 - Bariatric surgery status TSH reflex Free T4 Today Z.84 - Bariatric surgery status Ferritin Today Z. - Bariatric surgery status Vitamin D 25-OH Total Today Z.84 - Bariatric surgery status Insulin Today Z.84 - Bariatric surgery status Vitamin B12 and Folate Today Z98.84 - Bariatric surgery status Zinc Today Z.84 - Bariatric surgery status Vitamin B1 Today Z.84 - Bariatric surgery status Referrals Behavioral Health Referral Z. - Bariatric surgery status Nutrition/Dietitian Referral Z. - Bariatric surgery status Medications: Refilled clotrimazole 1% 1 appl topical BID 45 grams 3RF iron,carbonyl-vitamin C 65 mg iron- 125 mg (Vitron-C) 1 tab PO BEDTIME 90 tabs 3RF
[2024-06-09 13:36] VITALS: BMI 29.6
== END 2024-06-09 14:03 | disposition home or self-care (01) ==
LOC: HO.HBS 13:51
PROVIDERS: PCP Internal Medicine; Visit Provider Physician Assistant Surgical
DX: E66.3 Overweight (principal); Z68.29 Body mass index [BMI] 29.0-29.9, adult; Z90.3 Acquired absence of stomach [part of]; Z98.84 Bariatric surgery status
CPT/HCPCS: 99214; G2211

== ENCOUNTER → 2024-06-09 13:51 | Outpatient (BNVA) | payer OTHER, SELFPAY | PROVIDERS: PCP Internal Medicine; Visit Provider Physician Assistant Surgical | DX: Z98.84 Bariatric surgery status (principal) ==

== ENCOUNTER 2024-06-17 12:41 | Outpatient (REF) | payer OTHER, SELFPAY ==
[2024-06-17 13:08] LABS: MANUAL DIFF FLAG NO
[2024-06-17 13:11] LABS: Eosinophils Absolute Auto 0.1 X10*3/uL (0.0-0.4); Eosinophils Percent Auto 1.9 % (0-4); Hematocrit 30.7 % (37.0-47.0); Hemoglobin 9.2 g/dl (12.0-16.0); Imm Gran Abs Auto 0.01 X10*3/uL (0.00-0.03); Imm Gran Pct Auto 0.3 % (0.0-0.4); Lymphocytes Absolute Auto 1.1 X10*3/uL (1.2-4.9); Lymphocytes Percent Auto 34.2 % (20-40); Mean Corpuscular Hemoglobin 22.7 pg (27.0-33.0); Mean Corpuscular Volume 75.6 fL (80.0-98.0); Mean Platelet Volume 9.4 fL (9.4-12.3); Monocytes Absolute Auto 0.3 X10*3/uL (0.1-1.2); Monocytes Percent Auto 9.4 % (2-11); Neutrophils Absolute Auto 1.7 x10*3/uL (2.0-8.3); Neutrophils Percent Auto 53.2 % (45-73); Platelet Count 279 X10*3/uL (160-400); Red Blood Count 4.06 X10*6/uL (4.20-5.50); Red Cell Distribution Width 15.5 % (11.0-16.0); White Blood Count 3.1 X10*3/uL (4.8-10.8)
[2024-06-17 13:29] LABS: Estimated Average Glucose 111 mg/dL; Hemoglobin A1C 90.4548 umol/L; Hemoglobin A1c % 5.5 % (<6.0)
[2024-06-17 13:39] LABS: Alanine Aminotransferase 15 U/L (0-31); Albumin Level 4.2 g/dL (3.5-5.0); Alkaline Phosphatase 77 U/L (39-117); Anion Gap 9 (12-20); Aspartate Amino Transferase 22 U/L (5-31); Bilirubin Total 0.3 mg/dL (0.0-1.0); Blood Urea Nitrogen 12 mg/dL (9-16); C Reactive Protein 1.38 mg/dL (< or = 0.50); Calcium 9.2 mg/dL (8.4-10.2); Carbon Dioxide 22 mmol/L (22-29); Chloride 114 mmol/L (96-108); Cholesterol 154 mg/dL (<200); Estimated Glomerular Filt Rate > 60; Glucose Random 84 mg/dL (60-115); HDL Cholesterol 49 mg/dL (>40); Iron 18 mcg/dL (30-160); LDL Cholesterol Calculated 82 mg/dL (<100); Percent Iron Saturation 5 % (15-50); Potassium 3.9 mmol/L (3.3-5.1); Sodium 141 mmol/L (135-145); Total Iron Binding Capacity 375 mcg/dL (228-428); Total Protein 7.6 g/dL (6.5-8.0); Triglycerides 115 mg/dL (<150); Unsaturated Iron Binding 357 ug/dL
[2024-06-17 13:54] LABS: Ferritin 11 ng/mL (10-250); Insulin 5 uU/mL (2-29); TSH reflex Free T4 1.14 uIU/mL (0.32-4.0); Vitamin D 25-OH Total 26.7 ng/mL (>30)
[2024-06-17 14:05] LABS: Folate 15.1 ng/mL (> or = 4.0); Vitamin B12 445 pg/mL (200-900)
[2024-06-20 16:04] LABS: Zinc 68 mcg/dL (60-130)
[2024-06-22 14:04] LABS: Vitamin A 27 mcg/dL (38-98)
[2024-06-23 17:23] LABS: Vitamin B1 10 nmol/L (8-30)
== END 2024-06-17 12:42 | disposition home or self-care (01) ==
LOC: HO.LAB 12:41
PROVIDERS: PCP Internal Medicine; Visit Provider Physician Assistant Surgical
DX: Z98.84 Bariatric surgery status (principal)
CPT/HCPCS: 36415; 80053; 80061; 82306; 82607; 82728; 82746; 83036; 83525; 83540; 84425; 84443; 84590; 84630; 85025; 86140

== ENCOUNTER 2024-09-22 13:34 | Outpatient (AMB) | payer OTHER, SELFPAY ==
--- NOTE | 2024-09-22 13:32 | A.OFFVIS_ITS ---
VS Expanded 09/22/24 13:37 Height 5 ft 3 in Weight 191 lb BMI 33.8 Intake Visit Reasons: (TELEPHONE ) PO LSG 04/02/23 Allergies oxycodone [From Percocet] Adverse Reaction (Verified 06/19/23 13:55) Anxiety Medication List - Last Reconciled 09/22/24 by [facility] blood pressure test kit-large ([employer] Blood Pressure Monitor kit) As directed cholecalciferol (vitamin D3) 50 mcg PO DAILY clotrimazole 1% 1 appl topical BID iron,carbonyl-vitamin C 65 mg iron- 125 mg (Vitron-C) 1 tab PO BEDTIME vitamin A palmitate 10,000 units PO DAILY HPI Comments Details: This is a 49 yo female who is s/p LSG 04/02/2023. Presents for 18 month post op visit. Weight at last visit on 06/09/2024 was 167 pounds with a BMI of 29.6, weight today is 191 pounds, representing a 24 pound weight loss with a BMI today of 33.8. Pt reports her mom got sick and . She gained some weight after this. Has been feeling off since last week, I've been eating garbage. Had a [place] salad and started noticing increased saliva which happens when she eats the wrong thing or eats too much. Had shrimp tacos at a restaurant also and this did not sit well with her. Present meal plan includes: egg for breakfast, 2 shakes 4:1 with 2 scoops each (or can do one of the shakes with 1 scoop powder and 1 ghanaian yogurt to make a smoothie), 1 Zone bar recommended at last visit- pt reports trying to follow this plan closely hair/skin/nails supplement for hair loss Exercise routine includes: gym- has increased her exercise since last visit Pt reports problems of excess skin of abdomen. Pt has noticed itchy rashes starting to occur. Has moisture collecting in umbilius which has an unpleasant smell. Has had to wear a binder to hold excess skin in place; excess skin is very heavy and causes her posture to suffer. Difficult to exercise to full capacity due to discomfort. Pt also reports problems of excess skin of upper arms. Starting to get rashes due to friction of skin rubbing against her body. Has tried compressive arms sleeves to hold skin in place. Walking is more difficult due to arm swing and worsening friction. Difficult to exercise due to friction. [facility] Medical History Sleep apnea Morbid obesity Hypertension Surgical History S/P laparoscopic sleeve gastrectomy Hx of right knee surgery Hx of umbilical hernia repair Hx of appendectomy Hx of section Family History Mother No problems noted. Father Cancer Sister No problems noted. Sister No problems noted. Son No problems noted. Son No problems noted. Son No problems noted. Daughter No problems noted. Social History Household Members: Family Housing: Apartment Are you a primary manager managed care to a significant other at home: No Do you presently have visiting nurse or other home services: No Alcohol intake: never Patient Tobacco Use Status: Never used Tobacco Tobacco use type: Cigarette e-Cigarette/Vaping Use: Never Used Second Hand Smoke Exposure: No service: No Current occupational status: unemployed Cognitive needs: No Hearing needs: No Vision needs: Yes (glasses) Telehealth Telehealth Telehealth Platform: Telephone Location of provider rendering services: practice address Location of patient: address on file Patient Identification confirmed using: Name, : Yes Telehealth method: voice only Patient verbally consented to treatment: Yes Patient verbally consented to billing insurance company: Yes Patient informed of any privacy concerns related to visit: Yes Minutes spent on Phone/Video with Pt.: 16 Assessment & Plan Assessment & Plan (1) Obesity: Code(s): E66.9 - Obesity, unspecified Category: Medical (2) S/P laparoscopic sleeve gastrectomy: Code(s): Z98.84 - Bariatric surgery status Category: Surgical (3) Excess skin: Code(s): L98.7 - Excessive and redundant skin and subcutaneous tissue Category: Medical Plan Offered BH support in light of her mother's passing; she declines today. Pt is interested in starting GLP1. Reviewed contraindications, discussed dosing. Discussed need for adequate protein intake while on GLP1s as well as frequent communication with our office. Pt will check in with me weekly and is aware that subsequent Rx will be dependent on frequent communication. Gave [employer] jon info and encouraged her to follow a high protein meal plan. CBC and vitamin levels to follow up on low levels from Jun. RYC 6-8 weeks for phone call visit. Orders: Orders Complete Blood Count Auto Diff Today Z98.84 - Bariatric surgery status Zinc Today Z98.84 - Bariatric surgery status Vitamin A Today Z98.84 - Bariatric surgery status Vitamin D 25-OH Total Today Z98.84 - Bariatric surgery status Vitamin B1 Today Z98.84 - Bariatric surgery status Vitamin B12 and Folate Today Z98.84 - Bariatric surgery status Ferritin Today Z98.84 - Bariatric surgery status IRON PROFILE Today Z98.84 - Bariatric surgery status Medications: New Zepbound (tirzepatide (weight loss)) for 4 weeks 2.5 mg (0.5 mL) subcut QWEEK 2 mL 0RF NS
[2024-09-22 13:37] VITALS: BMI 33.8
== END 2024-09-22 13:57 | disposition home or self-care (01) ==
LOC: HO.HBS 13:34
PROVIDERS: PCP Internal Medicine; Visit Provider Physician Assistant Surgical
DX: E66.9 Obesity, unspecified (principal); Z68.33 Body mass index [BMI] 33.0-33.9, adult; Z98.84 Bariatric surgery status; L98.7 Excessive and redundant skin and subcutaneous tissue
CPT/HCPCS: 99214; G2211

== ENCOUNTER → 2024-09-22 13:34 | Outpatient (BNVA) | payer OTHER, SELFPAY | PROVIDERS: PCP Internal Medicine; Visit Provider Physician Assistant Surgical ==

== ENCOUNTER 2024-09-24 13:36 | Outpatient (REF) | payer OTHER, SELFPAY ==
[2024-09-24 13:57] LABS: MANUAL DIFF FLAG NO
[2024-09-24 14:25] LABS: Basophils Absolute Auto 0.1 X10*3/uL (0.0-0.2); Basophils Percent Auto 1.1 % (0-2); Eosinophils Absolute Auto 0.7 X10*3/uL (0.0-0.4); Eosinophils Percent Auto 11.5 % (0-4); Hematocrit 25.3 % (37.0-47.0); Hemoglobin 7.8 g/dl (12.0-16.0); Imm Gran Abs Auto 0.02 X10*3/uL (0.00-0.03); Imm Gran Pct Auto 0.3 % (0.0-0.4); Lymphocytes Absolute Auto 2.4 X10*3/uL (1.2-4.9); Lymphocytes Percent Auto 37.4 % (20-40); Mean Corpuscular HGB Conc 30.8 g/dl (31.0-35.0); Mean Corpuscular Hemoglobin 23.1 pg (27.0-33.0); Mean Corpuscular Volume 75.1 fL (80.0-98.0); Mean Platelet Volume 9.6 fL (9.4-12.3); Monocytes Absolute Auto 0.3 X10*3/uL (0.1-1.2); Monocytes Percent Auto 4.7 % (2-11); Neutrophils Absolute Auto 2.9 x10*3/uL (2.0-8.3); Platelet Count 374 X10*3/uL (160-400); Red Blood Count 3.37 X10*6/uL (4.20-5.50); Red Cell Distribution Width 16.7 % (11.0-16.0); White Blood Count 6.3 X10*3/uL (4.8-10.8)
[2024-09-24 14:41] LABS: Iron 14 mcg/dL (30-160); Percent Iron Saturation 4 % (15-50); Total Iron Binding Capacity 367 mcg/dL (228-428); Unsaturated Iron Binding 353 ug/dL
[2024-09-24 14:56] LABS: Ferritin 3 ng/mL (10-250); Vitamin D 25-OH Total 24.1 ng/mL (>30)
[2024-09-24 15:09] LABS: Folate 11.3 ng/mL (> or = 4.0); Vitamin B12 383 pg/mL (200-900)
--- OUTSIDE RECORDS SUMMARY | 2024-09-24 15:58 | XMS_ITS | Data Portability ---
Author Organization [place] - [facility], [facility] Address [id number] [place] [address] Care Team Providers Care Advertising Intern Name Role Phone SEAMUS STERN Primary Care Provider Assessment No assessment recorded. Plan of Treatment Reminders Order Date Submit Date Provider Last Modified By Organization Details Last Modified Time Details Appointments None recorded. Lab CT + NG DNA, PCR, unspecifie d specimen 2022 023 [facility], [address] [place] [address], [address] 3 14:57:30 HBsAg (hepatitis B surface Ag), confirmati on, serum 2022 023 [facility]THPuzl [facility] (Centralized Electronic Ordering - All Locations), Patient Can Go To The Location Of Their Choice, [facility] 3 10:10:13 RPR (rapid plasma reagin), serum 2022 023 [facility]THPuzl [facility] (Centralized Electronic Ordering - All Locations), Patient Can Go To The Location Of Their Choice, [id number] 3 10:10:13 HIV 1+2 AB + HIV 1 p24 Ag, qualitativ e immunoassa y, serum 2022 023 ATHCynergenX [facility] (Centralized Electronic Ordering - All Locations), Patient Can Go To The Location Of Their Choice, [id number] 3 10:10:13 hsv (1+2) igg Ab, serum 2022 023 [facility]THPuzl [facility] (Centralized Electronic Ordering - All Locations), Patient Can Go To The Location Of Their Choice, [id number] 3 10:10:13 hepatitis C virus Ab, serum 2022 023 [facility] (Centralized Electronic Ordering - All Locations), Patient Can Go To The Location Of Their Choice, [id number] 3 09:01:34 bacterial vaginosis panel, vaginal 2022 023 REJI In-Office Order, Internal Use Only DO Not Attach Compendium DO Not Attach Compendium, Do Not Delete/merge, [id number] 13:50:27 test, urine 2021 022 [email or web address] In-Office Order, Internal Use Only DO Not Attach Compendium DO Not Attach Compendium, Do Not Delete/merge, [id number] 12:55:28 surgical pathology study 2021 REJI [facility], [address] [place], [address] 16:07:17 Referral None recorded. Procedures None recorded. Surgeries None recorded. Imaging None recorded. Medication Orders norethindr one (contracep tive) 0.35 mg tablet 2021 REJI Not available 15:53:51 Patient TargetsNo targets recorded. Patient Instructions Encounter Date Encounter Id Patient Instructions Last Modified By Organization Details Last Modified Time 04/13/2022 [id number] uterine fibroids : care instructions Not available 04/13/2022 16:03:16 07/13/2022 [id number] sexually transmitted disease education Not available 07/13/2022 09:26:44 Reason for Referral None Reported. Results Created Date Observation Date Name Description Value Unit Range Abnormal Flag Note LastModifiedBy Organization Detail LastModifiedTime 09/30/1909/29/2021 RADHIKA LEI/ SHAINAOR RHOEA E RNA, TMA neisseria gonorrhoeae RNA, tma Negati ve negati ve Not Available [facility] [address] [place], [address] 10/02/2021 09:07:39 09/30/1909/29/2021 CHLAM YDIA/ GONOR RHOEA E RNA, TMA chlamydia trachomatis RNA, tma Negati ve negati ve Not Available [facility] [address] [place], [address] 10/02/2021 09:07:39 09/30/19 22 09/29/2021 pregn natalie test, urine Result negati ve Not Available In-Office Order Internal Use Only DO Not Attach Compendium DO Not Attach Compendium, Do Not Delete/merge, [id number] 09/21/2021 10:24:35 05/04/20 22 05/04/2022 TISSU E report Report Final Patho logy Repor t ----- ----- ----- ----- ----- ----- ----- ----- ----- ----- ----- ----- FINAL DIAGN OSIS: ENDOM ETRIA L BIOPS Y: - SECRE TAYLA FLEMING ETRIU M. - NEGAT ANNE FOR HYPER PLASI A AND MALIG TEA Elect tamiko Anderson d: Rosey Almonte MD ----- ----- ----- ----- ----- ----- ----- ----- ----- ----- ----- ----- Clini dawson Diagn osis and Histo ry: Abnor mal uteri ne bleed ing Gross Descr iptio n: Conta iner label ed with the patie nt's name HILARY BRAR TE noted EMBX. Speci men is recei candy in forma waqar and consi sts of irreg ular tissu e fragm ents admix ed with mucus and blood measu ring 1.0 cc which are filte red and submi tted in toto in 1 casse tte(s ) label ed 1A. CPT Codes : 45730 ICD Codes : N93.9 Not Available [facility] [address] [place], [address] 05/07/2022 16:07:17 05/04/20 22 05/04/2022 pregn natalie test, urine Result negati ve Not Available In-Office Order Internal Use Only DO Not Attach Compendium DO Not Attach Compendium, Do Not Delete/merge, [id number] 05/03/2022 18:38:39 07/13/1907/13/2022 CHLAM YDIA/ GONOR RHOEA E RNA, TMA neisseria gonorrhoeae RNA, tma Negati ve negati ve The perfo rmanc e of endoc ervic al, vagin al, and male ureth ral swab speci mens, male and femal e urine speci mens, and Prese rvCyt Solut ion liqui d Pap speci mens has not been evalu ated in adole scent s less than 16 years of age. Not Available [facility] [address] [place], [address] 07/16/2022 14:57:30 07/13/19 23 07/13/2022 CHLAM YDIA/ GONOR RHOEA E RNA, TMA chlamydia trachomatis RNA, tma Negati ve negati ve The perfo rmanc e of endoc ervic al, vagin al, and male ureth ral swab speci mens, male and femal e urine speci mens, and Prese rvCyt Solut ion liqui d Pap speci mens has not been evalu ated in adole scent s less than 16 years of age. Not Available [facility] [address] [place], [address] 07/16/2022 14:57:30 07/16/19 23 07/16/2022 bacte rial vagin osis panel , vagin al trichomonas vaginalis DNA negati ve negati ve Not Available In-Office Order Internal Use Only DO Not Attach Compendium DO Not Attach Compendium, Do Not Delete/merge, [id number] 07/13/2022 09:26:19 07/16/19 23 07/16/2022 bacte rial vagin osis panel , vagin al gardnerella vaginalis DNA negati ve negati ve Not Available In-Office Order Internal Use Only DO Not Attach Compendium DO Not Attach Compendium, Do Not Delete/merge, [id number] 07/13/2022 09:26:19 07/16/19 23 07/16/2022 bacte rial vagin osis panel , vagin al yvon species DNA negati ve negati ve Not Available In-Office Order Internal Use Only DO Not Attach Compendium DO Not Attach Compendium, Do Not Delete/merge, [id number] 07/13/2022 09:26:19 07/16/19 23 07/16/2022 bacte arturol vagin osis panel , sugar zhang state id [id number] Not Available In-Off ice Order Internal Use Only DO Not Attach Compendium DO Not Attach Compendium, Do Not Delete/merge, [id number] 07/13/2022 09:26:19 10/24/19 22 10/23/2021 US, trans vagin al RAD [email or web address] [address], [address], 10/23/2021 16:37:54 10/24/19 22 10/23/2021 US, trans vagin al RAD [email or web address] [address], [address], 10/23/2021 16:40:40 Result Notes None recorded. Problems Name Problem SNOMED Code Status Onset Date Resolution Date Notes Provider Name and Address Organization Details Recorded Time Body mass index 40+ - severely obese 633958201 Active 2019 WARD MATUTE MD [address] [facility], [address] [place] [address], [address], [facility] 0 11:34:04 Uterine leiomyoma 36462524 Active 2019 WARD MATUTE MD [address] [facility], [address] [place] [address], [address], [facility] 0 11:34:12 Menorrhagia 769733060 Active 2019 WARD MATUTE MD [address] [facility], [address] [place] [address], [address], [facility] 0 11:34:18 Essential hypertension 13029059 Active 2019 WARD MATUTE MD [address] [facility], [address] [place] [address] [place], [address], [place] [facility] 0 11:34:41 Sleep apnea 11797855 Active 2019 WARD MATUTE MD [address], [address] [place] [address], [place], [address], [facility] 0 11:34:59 Problem Notes None recorded. Procedures Surgical History Date Name Laterality Status Provider Name and Address Organization Details Recorded Time 08/25/19 23 [id number] cancelled WARD MATUTE MD [address], [address] [place] [address], [place], [address], [facility] 08/02/2022 13:48:51 08/25/19 23 [id number] cancelled WARD MATUTE MD [address] [facility], [address] [place] [address], [phone], [facility] 08/02/2022 13:48:47 05/04/20 22 Endometrial Biopsy Procedure Note completed WARD MATUTE MD [address], [address] [place] [address], [place], [address], [facility] 05/04/2022 12:54:56 05/04/20 22 Hysteroscopy completed WARD MATUTE MD [address] [facility], [address] [place] [address], [address], [facility] 05/04/2022 12:55:19 12/14/19 22 IUD Removal completed WARD MATUTE MD [address], [address] [place] [address], [address], [facility] 12/13/2021 14:33:31 09/30/19 22 IUD Insert completed WARD MATUTE MD [address] [facility], [address] [place] [address], [address], [facility] 09/29/2021 14:32:02 07/28/19 22 IUD Insert cancelled WARD MATUTE MD [address] [facility], [address] [place] [address], [address], [facility] 07/27/2021 18:21:52 07/14/19 22 [id number]-[id number] completed [facility] MD [facility], [address] [place] [address], [address], [facility] 07/13/2021 19:51:18 07/14/19 22 N2G-YNV completed WARD MATUTE MD [address], [address] [place] [address], [address], [facility] 07/13/2021 19:51:17 07/14/19 22 Date of Last Pap Smear completed WARD MATUTE MD [address] [facility], [address] [place] [address], [address], [facility] 07/21/2021 09:15:15 10/18/19 21 Date of Last Mammogram completed WARD MATUTE MD [address] [facility], [address] [place] [address], [address], [facility] 10/24/2020 13:37:51 06/24/19 21 [id number] completed WARD MATUTE MD [address] [facility], [address] [place] [address], [address], [facility] 05/19/2020 18:46:16 06/24/19 21 H4T-TEN completed WARD MATUTE MD [address] [facility], [address] [place] [address], [address], [facility] 05/19/2020 18:46:14 06/08/19 20 Endometrial Biopsy Procedure Note completed WARD MATUTE MD [address] [facility], [address] [place] [address], [address], [facility] 06/08/2019 14:40:24 06/08/19 20 Hysteroscopy completed WARD MATUTE MD [address] [facility], [address] [place] [address], [address], [facility] 06/08/2019 14:41:45 05/13/20 19 Q6C-MCQDOM completed WARD MATUTE MD [address], [address] [facility], [place], [place], [address] [place] [address], [facility] 05/13/2019 15:05:30 05/13/20 19 W6P-ZQZ completed WARD MATUTE MD [address], [address] [facility], [place], [address], [facility] 05/13/2019 15:05:28 11/15/19 18 E7R-TQJ completed HEMANT HUSTON MD [address], [address] [place] [address], [address] [place] [address], [facility] 11/14/2017 10:57:20 11/15/19 18 [id number]-[id number] completed HEMANT HUSTON MD [address], [address] [place] [address], [address] [place] [address], [facility] 11/14/2017 10:57:08 06/03/19 03 [facility] 14:47:14 06/03/19 00 [facility] 05/13/2019 14:47:14 06/03/18 93 [facility] 05/13/2019 14:47:14 06/03/18 92 [facility] 05/13/2019 14:47:14 Appendectomy completed HEMANT HUSTON MD [address], [address] [facility], [place], [address], [facility] 11/14/2017 10:49:31 Hernia completed HEMANT HUSTON MD [address] [place], [address], [facility] 11/14/2017 10:49:39 Knee arthroscopy/surg leonarda completed HEMANT HUSTON MD [address], [address], [place], [address], [place] [facility] 11/14/2017 10:50:05 Imaging Results Imaging Date Name Status LastModified by Organization Details LastModified Time 10/23/2021 US, transvaginal completed [email or web address] [facility] [address], [place], [address], 10/23/2021 16:37:54 10/23/2021 US, transvaginal completed [email or web address] [facility] [address], [place], [address], 10/23/2021 16:40:40 Procedure Notes None recorded. Medical Equipment None Reported. Allergies Allergen ID Allergen Name Allergen Category Reaction Reaction Severity Criticality Documentation Date Start Date Code Code System Note Provider Name and Address Organization Details Recorded Time [id number] acetamino phen / oxycodone medicatio n Not available Not available Not available 11/14/2017 [address] 3 RxNorm Hattie Melchorado [facility], [facility] 8 10:42:05 Medications Name Sig Start Date Stop Date Status Note LastModified by Organization Details LastModified Time amoxicillin 500 mg capsule TAKE ONE CAPSULE BY MOUTH EVERY 8 HOURS UNTIL ALL TAKEN 06/26 completed Not Available Not Available Not Available Mirena 21 mcg/24 hr (up to 8 years) 52 mg intrauterin e device Take 1 device by intrauter ine route. 2021 active Not Available Not Available Not Avai lable methocarbam ol 500 mg tablet 11/14 completed Not Available Not Available Not Available metformin 500 mg tablet active Not Available Not Available Not Available prednisone 10 mg tablet 06/24 completed Not Available Not Available Not Available albuterol sulfate 2.5 mg/3 mL (0.083 %) solution for nebulizatio n 06/26 completed Not Available Not Available Not Available irbesartan 150 mg-hydrochl orothiazide 12.5 mg tablet 11/14 completed Not Available Not Available Not Available trazodone 50 mg tablet active Not Available Not Available Not Available ibuprofen 800 mg tablet 06/26 completed Not Available Not Available Not Available benzonatate 200 mg capsule TAKE 1 CAPSULE BY MOUTH THREE TIMES DAILY FOR 10 DAYS active Not Available Not Available No t Available meloxicam 15 mg tablet 11/14 completed Not Available Not Available Not Available topiramate 25 mg tablet 06/26 completed Not Available Not Available Not Available amlodipine 5 mg tablet 11/14 completed Not Available Not Available Not Available tramadol 50 mg tablet 11/14 completed Not Available Not Available Not Available amoxicillin 500 mg tablet TAKE 1 TABLET BY MOUTH EVERY 8 HOURS UNTIL ALL TAKEN 06/26 completed Not Available Not Available Not Available potassium chloride ER 20 mEq tablet,exte nded release(par t/cryst) 06/26 completed Not Available Not Available Not Available Proctozone- HC 2.5 % topical cream perineal applicator 11/14 completed Not Available Not Available Not Available benzonatate 100 mg capsule 11/14 completed Not Available Not Available Not Available pantoprazol e 40 mg tablet,mayito yed release 06/24 completed Not Available Not Available Not Available metformin 1,000 mg tablet 06/24 completed Not Available Not Available Not Available clotrimazol e-betametha sone 1 %-0.05 % topical cream APPLY TOPICALLY TO THE AFFECTED AREA TWICE DAILY active Not Available Not Available No t Available misoprostol 200 mcg tablet INSERT 1 T VAGINALLY THE NIGHT BEFORE PROCEDURE 06/24 completed Not Available Not Available Not Available fluoxetine 10 mg capsule 06/26 completed Not Available Not Available Not Available ergocalcife rol (vitamin D2) 1,250 mcg (50,000 unit) capsule TAKE 1 CAPSULE BY MOUTH 1 TIME A WEEK active Not Available Not Available No t Available Infed 50 mg/mL injection solution active Not Available Not Available Not Available albuterol sulfate HFA 90 mcg/actuati on aerosol inhaler INHALE 2 PUFFS INTO THE LUNGS EVERY 6 HOURS NEEDED FOR WHEEZING 06/26 completed Not Available Not Available Not Available norethindro ne (contracept anne) 0.35 mg tablet TAKE 1 TABLET BY MOUTH EVERY DAY active Not Available Not Available No t Available sodium fluoride 1.1 % dental gel BRUSH USING A PEA SIZED AMOUNT TWICE DAILY active Not Available Not Available No t Available naproxen 500 mg tablet 11/14 completed Not Available Not Available Not Available nabumetone 500 mg tablet 11/14 completed Not Available Not Available Not Available hydroxyzine pamoate 25 mg capsule active Not Available Not Available N ot Available olmesartan 20 mg tablet 05/13 completed Not Available Not Available Not Available olmesartan 20 mg-hydrochl orothiazide 12.5 mg tablet TAKE 1 TABLET BY MOUTH DAILY active Not Available Not Available No t Available nitrofurant oin monohydrate /macrocryst als 100 mg capsule 06/26 completed Not Available Not Available Not Available Vitamin C active Not Available Not Melissa ilable Not Available B Complex-Vit grant B12 active Not Available Not Available Not Available biotin 06/26 completed Not Available Not Available Not Available Vitamin D 06/24 completed Not Available Not Available Not Available hydrocodone 5 mg-acetamin ophen 300 mg tablet 11/14 completed Not Available Not Available Not Available Vitals Date Recorded Body height Provider Name an d Address Organization Details Last Updated DateTime 10/23/2021 157.48 cm Nachoariella Yoon [facility] 10/23/2021 16:01:29 Date Recorded Body height Body mass index (BMI) Body weight Systolic blood pressure Diastolic blood pressure Provider Name and Address Organization Details Last Updated DateTime 12/13/2021 157.48 cm 46 kg/m2 702003.1 2 g 120 mm[Hg] 82 mm[Hg] Sheron Shah [facility] 2 14:23:40 Date Recorded Body height Body mass index (BMI) Body weight Systolic blood pressure Diastolic blood pressure Provider Name and Address Organization Details Last Updated DateTime 07/13/2022 157.48 cm 46 kg/m2 602209.1 2 g 120 mm[Hg] 83 mm[Hg] Sheron Shah [facility] 3 09:14:13 Social History Question Answer Notes LastModified by Organizat ion Details LastModified Time Tobacco Smoking Status Never Smoker Hattie Lauren wills [facility] 11/14/2017 10:43:47 What Is Your Level Of Alcohol Consumption? None [email or web address] Information not available 11/14/2017 Is Blood Transfusion Acceptable In An Emergency? Yes Information not available 07/14/2021 Concerns About Meeting Basic Needs (food, Housing, Heat, Etc)? 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 No Information not available 11/14/2017 Has Your Partner Forced You To Have Sex Or Perform Sex Acts When You Did Not Want To? No [email or web address] Information not available 11/14/2017 Does Your Partner Insult, Scream At Or Talk Down To You? No [email or web address] Information not available 11/14/2017 Does Your Partner Control You Or Any Part Of Your Life? No [email or web address] Information not available 11/14/2017 Are You Afraid Of Your Partner? No 05/13/19, 06/24/20, 07/14/21 [email or web address] Information not available 11/14/2017 Drug Use? No Information no t available 05/13/2019 Do You Feel Safe At Home? Yes [email or web address] Information not available 11/14/2017 What Was The Date Of Your Most Recent Tobacco Screening? 07/14/2021 Information not available 07/14/2021 How Much Tobacco Do You Smoke? No Information not available 07/14/2021 Have You Recently Traveled Abroad? No Information not available 07/14/2021 Have You Recently (within The Last 12 Weeks, Or During A Current ) Traveled To Or Lived In A Zika-affected Area? No Information not available 07/14/2021 Sex: Unknown Functional Status Question Answer Note LastModified by Organizat ion Details LastModified Time What is your exercise level? Occasional [email or web address] Information not available 11/14/2017 Mental Status None recorded. Family History Relationship Description Onset Age of this Age Resolved Age Notes LastModified by Organization Details LastModified Time Sister Malignant tumor of ovary [email or web address] Not available 11/14 10:43:09 Mother Diabetes mellitus [email or web address] Not available 11/14 10:43:17 Mother Hypertensive disorder [email or web address] Not available 11/14 10:43:24 Mother Disorder of thyroid gland [email or web address] Not available 11/14 10:43:32 Father Malignant tumor of lung 64 [email or web address] Not available 11/14 10:43:42 Notes:No Family H/O Breast/E ndometrial/Cervical/Colon Cancer Medical History Condition Response Other N *No Diseases or Conditions N Blood clots N Breast Cancer N Colon cancer N Benign breast disease N Depression N Lung Disease N Defects or Inherited Disease N Anesthesia Complications N BrCa gene tested? N Headaches/Migraines N Have you ever been on isolation N Anxiety Disorder N Arthritis N HSV N Infertility N Abnormal pap N Interstitial Cystitis N Acid Reflux (GERD) N Cancer N Stroke N Endometriosis N Fibromyalgia N Spina Bifida N HIV N Heart Problems N Sexual Dysfunction N Autoimmune disorder N Thyroid Problems N Kidney or Bladder Problems N GI Problems N Eating Disorder N Anemia N Multiple Sclerosis N Psychiatric Illness N Diabetes N Ovarian Cancer N Blood Transfusions N Bladder disease N History of MRSA N Abnormal Uterine Bleeding N Hyperlipidemia N BrCa positive N Abuse/Domestic Violence N Diverticulitis N Asthma N Hepatitis N Hypertension Y Osteoporosis N Thrombophilias N Gynecological History Statement/Question Response Date of Last Mammogram 10/17/2020 Flow Heavy Date of LMP 06/07/2022 IPV Screen Done 07/13/2022 Cervical Cancer N History of Endometrial Biopsy? Yes BrCa gene tested? N Ovarian Cancer N Breast Cancer N Abnormal Uterine Bleeding Yes Last HPV Result Negative Abnormal Pap N BrCa Positive N Infertility N Sexual Orientation heterosexual HPV Vaccine N Duration of Flow (days) 7 Endometriosis N Age at Menarche 10 Age at First Child 16 Fibroids N Uterine Cancer N Current Control Method Partner Vas ectomy Frequency of Cycle (Q days) 28 Sexually Active? Y Sexual Problems? N Date of Last Pap Smear 07/14/2021 Obstetrics History GPAL:G 0 P 0 0 0 0 Past Encounters Encounter ID Performer Location Encounter Start Date Encounter Closed Date Diagnosis/Indication Diagnosis SNOMED-CT Code Diagnosis ICD10 Code Diagnosis Note [id number] HEMANT HUSTON MD [facility] [place] [address] 11/14/2017 10:19:39 11/14/2017 11:00:16 Gynecologic examination 43870997 Z01.419 Screening for malignant neoplasm of cervix 845927913 Z12.4 Z11.51 Screening mammography 24 302587 Z12.31 [id number] WARD MATUTE MD [facility] [place] [address] 05/13/2019 14:13:52 05/13/2019 15:28:27 Gynecologic examination 92866980 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31 Menorrhagia 833020537 N9 2.0 Schedule ultrasound to evaluate pelvic anatomy Schedule talk afterwards to review findings and make treatment plan Will schedule Endometria l Biopsy and Sonohyst as indicated Call if bleeding >1 pad/hour for more than 3 hours Body mass index 40+ - severely obese 718818421 Z68.41 E66.01 Discussed importance of well balanced diet being mindful of excess simple carbohydra aylin and advised to modify her diet by decreasing the amount of calories eaten, to avoid processed foods, increase fruit and vegetable intake, and to try a weight loss program such as Weight Watchers. We discussed the importance of exercise in the form of walking or stationary bicycling or some other enjoyable aerobic activity. The patient was advised to that a great starting point is to exercise (walking or other aerobic activity) at least 30 minutes/we ek 3-5 times/ week. She was encouraged to start slowly walking 15 minutes/da y, 3 times/ week and slowly increase the time every week. These measures will help patient to slowly lose weight and/or maintain weight. [id number] WARD MATUTE MD [facility] [address] [place] [address] 06/04/2019 11:02:14 06/04/2019 12:07:20 Menorrhagia 565436833 N92.0 U/S done and reviewed with pt - aware multiple fibroids with presence of ?submucosa l fibroids Limited study due to pts large body habitus Pertinent findings reviewed with pt and questions answered Treatment plan and follow-up discussed Schedule EBX/Endose e to further evaluate endometria l cavity Will discuss treatment plan further pending results Uterine leiomyoma 796383 05 D25.9 [id number] WARD MATUTE MD [facility] [place] [address] 06/08/2019 14:09:00 06/08/2019 14:50:00 Menorrhagia [id number] N92.0 Considerin g Mirena test negative 432849218 Z32.02 [id number] WARD MATUTE MD [facility] [place] [address] 06/24/2020 14:28:39 06/24/2020 15:20:15 Gynecologic examination 85263162 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.419 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 Guidelines reviewed with pt - PAP with HPV co-testing done as indicated Annual Screening MMG @40yo Bone Density as indicated - 1200mg Ca and at least 800IU Vit D (diet/supp lementatio n), weight-ines ring exercise, avoid smoking, limit alcohol consumptio n Routine Colonoscop y Screening @50yo, earlier if clinically indicated Low saturated fat diet rich in fruit/veg/ grains, regular aerobic exercise (3-5 times per week), seatbelts, sunscreen/ avoid excess sun exposure Screening mammography 24 774154 Z12.31 Body mass index 40+ - severely obese 170068807 Z68.41 E66.01 Discussed importance of well balanced diet being mindful of excess simple carbohydra aylin and advised to modify her diet by decreasing the amount of calories eaten, to avoid processed foods, increase fruit and vegetable intake, and to try a weight loss program such as Weight Watchers. We discussed the importance of exercise in the form of walking or stationary bicycling or some other enjoyable aerobic activity. The patient was advised to that a great starting point is to exercise (walking or other aerobic activity) at least 30 minutes/we ek 3-5 times/ week. She was encouraged to start slowly walking 15 minutes/da y, 3 times/ week and slowly increase the time every week. These measures will help patient to slowly lose weight and/or maintain weight. 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 Guidelines reviewed with pt - PAP with HPV co-testing done as indicated Annual Screening MMG @40yo Bone Density as indicated - 1200mg Ca and at least 800IU Vit D (diet/supp lementatio n), weight-ines ring exercise, avoid smoking, limit alcohol consumptio n Routine Colonoscop y Screening @50yo, earlier if clinically indicated Low saturated fat diet rich in fruit/veg/ grains, regular aerobic exercise (3-5 times per week), seatbelts, sunscreen/ avoid excess sun exposure Screening for malignant neoplasm of cervix 879027981 Z12.4 Screening mammography 24 182506 Z12.31 Depression screening 171 654620 Z13.31 Menorrhagia 486933039 N9 2.0 Desires to trial Mirena Body mass index 40+ - severely obese 741321267 Z68.41 E66.01 Discussed importance of well balanced diet being mindful of excess simple carbohydra aylin and advised to modify her diet by decreasing the amount of calories eaten, to avoid processed foods, increase fruit and vegetable intake, and to try a weight loss program such as Weight Watchers. We discussed the importance of exercise in the form of walking or stationary bicycling or some other enjoyable aerobic activity. The patient was advised to that a great starting point is to exercise (walking or other aerobic activity) at least 30 minutes/we ek 3-5 times/ week. She was encouraged to start slowly walking 15 minutes/da y, 3 times/ week and slowly increase the time every week. These measures will help patient to slowly lose weight and/or maintain weight. [id number] WARD MATUTE MD [facility] [address] [place] [address] 09/29/2021 14:01:21 09/29/2021 14:37:41 Venereal disease screening 292180169 Z11.3 test negative 355624984 Z32.02 Insertion of intrauterine contraceptive device 78391721 Z30.656 [id number] WARD MATUTE MD [facility] [place] [address] 10/23/2021 15:58:14 10/23/2021 16:33:03 Irregular periods 53075390 N92.6 U/S reviewed with pt - IUD not centrally placed within uterine cavityPt reassured that irregular bleeding pattern is normal after IUD placementP t desires to continue to use IUDSafe sex practicesW ill schedule re-inserti on with U/S Guidance [id number] WARD MATUTE MD [facility] [place] [address] 12/13/2021 14:13:24 12/13/2021 14:36:42 Removal of intrauterine device 92254514 Z30.432 [id number] WARD MATUTE MD [facility] [place] [address] 04/13/2022 15:42:10 04/13/2022 15:58:52 Abnormal uterine bleeding 9476273610 9100 N93.9 Continue Ibuprofen as neededPrio r U/S reviewed > aware enlarged uterus with multiple small fibroidsRe commend Endometria l Biopsy and Endosee Hysterosco py to r/o intracavit pily pathology (Last EBX 06/22) > pt agrees and to be scheduledH ormonal treatment options reviewed including POPs and Mirena (with U/S Guidance)S urgical options reviewed including definitive therapy with hysterecto mySurgical Procedure explained at length to ptRisks/be nefits with oophorecto my reviewed - pt understand s that if ovaries removed that post-menop ausal may start/wors enBenefits of Robotic Surgery discussed with pt including less pain, less blood loss (lower risk of blood transfusio n), less risk of infection, ? ? ? smaller skin incisions, short hospital stay, quicker return to normal activities Surgical risks associated with obesity (BMI - 46) and multiple C/S (LTCS x4) reviewed and questions answeredAt this time, pt desires to trial POPs > will consider definitive treatment if poor response to POPsCall if bleeding >1 pad/hour for more than 3 [id number] Pain in pelvis 17019728 R10.2 Uterine leiomyoma 620288 05 D25.9 [id number] WARD MATUTE MD [facility] [address] [place] [address] 05/04/2022 12:26:42 05/04/2022 12:57:27 Abnormal uterine bleeding 2929251852 9100 N93.9 test negative 487583358 Z32.02 [id number] WARD MATUTE MD [facility] [place] [address] 07/13/2022 09:02:14 07/13/2022 09:27:05 Venereal disease screening 967063175 Z11.3 Acute vaginitis 68264328 N76.0 Prescripti on not sent BV culture taken - treat as indicated Call if symptoms persist Health Concerns Section Related Observation LastModified by Organization Detai ls LastModified Time None Recorded Concern Status LastModified by Organization Details LastModified Time None Recorded Advance Directives Directive None Recorded Payers Encounter Date Sequence Insurance Name Policy Number Policy Sweeney Covered Member ID Sweeney Member ID Guarantor Name 10/23/2021 1 [facility] [employer] [employer] Noah Brar [id number] Ewelina Supriyalaura 12/13/2021 1 [facility] [employer] [employer] Noah Brar [id number] Ewelina Zonia 04/13/2022 1 [facility] [employer] Noah Brar [id number] Ewelina Supriyalaura 05/04/2022 1 [facility] [employer] Noah Brar [id number] Ewelina Zonia 07/13/2022 1 [facility] [employer] Noah Brar [id number] Ewelina Brar Notes Date Note Type Note Provider Name and Address Organization Details Recorded Time 10/23/2021 text/html Generic HPI TemplateReported bypatient.Notes:s/p Mirena placement. U/S done and shows not centrally placed IUD, see U/S report. Pt reports irregular spotting since placement. Overall happy with IUD at this time and desires to continue as her form of contraception and AUB. WARD MATUTE MD [address] [place] [address], [address] Floor, [place], [address], [place] [facility] 10/23/2021 16:31:00 04/13/2022 text/html 46yo (LTCS x4) with long h/o AUB. s/p normal pelvic U/S (06/04/19), benign EBX and normal cavity of in-office Endosee (06/08/19). Mirena IUD inserted 09/29/21 and removed 12/13/21 2/2 malposition. Pt declined reinsertion with U/S guidance. Pt continues to report 2 weeks of spotting followed menses which last 5 days. Menses reported as heavy with passage of clots. Symptoms are very bothersome and desires to discuss treatment options. WARD MATUTE MD [address], [address], [facility] 04/13/2022 16:03:29 07/13/2022 text/html Pt reports white vaginal discharge and slight itching. Also requests STD testing. WARD MATUTE MD 175 [facility], [address] [place] [address], [address], [facility] 07/13/2022 10:06:38 OBGyn Episode Ob Episode Information Episode Created Date Number of Fetuses Patient Bloodtype Patient rh Status Prepregnancy Weight lbs Domestic Partner Domestic Partner Phone Father Name Barrel Tester And Drainer Status 05/13/20 19 1 CLOSED Fetus Data First Name Last Name Admitted to NICU Weight (g) Sex Living Outcome Pediatric Complications Fetus ID Race Codes Race Delivery Type M Full Term [id number] - Primary Stefan Calculation Initial Stefan Date Initial Exam Date Initial Exam Provider Initial Ultrasound Date Last Menstrual Period Date Ultra Sound Weeks Gestation 0 Eighteen To Twenty Week Stefan Update Ultra Sound Date Fundal Height At Umbil Quickening Date Ultra Sound Latest Weeks Gestation Final Stefan Confirmed By Final Stefan Confirmed Date Final Stefan Date Ultra Sound Latest Days Gestation 0 0 Menstrual History Last Menstrual Date Menses Monthly On Bcp Conception Prior Menses Frequency Hcg Plus Date Menarche Onset Age Delivery Information Delivery Date Delivery Type Labor Anesthesia Weeks Gestation Incision Type Labor Labor Length Hrs Delivered By Post Complications Tubal Sterilization Discharge Date Comments 2 Discharge Information Feeding Method Contraceptive Method Maternal HG B and HCT Levels Ob Episode Information Episode Created Date Number of Fetuses Patient Bloodtype Patient rh Status Prepregnancy Weight lbs Domestic Partner Domestic Partner Phone Father Name Barrel Tester And Drainer Status 05/13/20 19 1 CLOSED Fetus Data First Name Last Name Admitted to NICU Weight (g) Sex Living Outcome Pediatric Complications Fetus ID Race Codes Race Delivery Type M Full Term [id number] - Repeat Stefan Calculation Initial Stefan Date Initial Exam Date Initial Exam Provider Initial Ultrasound Date Last Menstrual Period Date Ultra Sound Weeks Gestation 0 Eighteen To Twenty Week Stefan Update Ultra Sound Date Fundal Height At Umbil Quickening Date Ultra Sound Latest Weeks Gestation Final Stefan Confirmed By Final Stefan Confirmed Date Final Stefan Date Ultra Sound Latest Days Gestation 0 0 Menstrual History Last Menstrual Date Menses Monthly On Bcp Conception Prior Menses Frequency Hcg Plus Date Menarche Onset Age Delivery Information Delivery Date Delivery Type Labor Anesthesia Weeks Gestation Incision Type Labor Labor Length Hrs Delivered By Post Complications Tubal Sterilization Discharge Date Comments 3 Discharge Information Feeding Method Contraceptive Method Maternal HG B and HCT Levels Ob Episode Information Episode Created Date Number of Fetuses Patient Bloodtype Patient rh Status Prepregnancy Weight lbs Domestic Partner Domestic Partner Phone Father Name Barrel Tester And Drainer Status 05/13/20 19 1 CLOSED Fetus Data First Name Last Name Admitted to NICU Weight (g) Sex Living Outcome Pediatric Complications Fetus ID Race Codes Race Delivery Type F Full Term [id number] - Repeat Stefan Calculation Initial Stefan Date Initial Exam Date Initial Exam Provider Initial Ultrasound Date Last Menstrual Period Date Ultra Sound Weeks Gestation 0 Eighteen To Twenty Week Stefan Update Ultra Sound Date Fundal Height At Umbil Quickening Date Ultra Sound Latest Weeks Gestation Final Stefan Confirmed By Final Stefan Confirmed Date Final Stefan Date Ultra Sound Latest Days Gestation 0 0 Menstrual History Last Menstrual Date Menses Monthly On Bcp Conception Prior Menses Frequency Hcg Plus Date Menarche Onset Age Delivery Information Delivery Date Delivery Type Labor Anesthesia Weeks Gestation Incision Type Labor Labor Length Hrs Delivered By Post Complications Tubal Sterilization Discharge Date Comments 3 Discharge Information Feeding Method Contraceptive Method Maternal HG B and HCT Levels Ob Episode Information Episode Created Date Number of Fetuses Patient Bloodtype Patient rh Status Prepregnancy Weight lbs Domestic Partner Domestic Partner Phone Father Name Barrel Tester And Drainer Status 05/13/20 19 1 CLOSED Fetus Data First Name Last Name Admitted to NICU Weight (g) Sex Living Outcome Pediatric Complications Fetus ID Race Codes Race Delivery Type M Full Term [id number] - Repeat Stefan Calculation Initial Stefan Date Initial Exam Date Initial Exam Provider Initial Ultrasound Date Last Menstrual Period Date Ultra Sound Weeks Gestation 0 Eighteen To Twenty Week Stefan Update Ultra Sound Date Fundal Height At Umbil Quickening Date Ultra Sound Latest Weeks Gestation Final Stefan Confirmed By Final Stefan Confirmed Date Final Stefan Date Ultra Sound Latest Days Gestation 0 0 Menstrual History Last Menstrual Date Menses Monthly On Bcp Conception Prior Menses Frequency Hcg Plus Date Menarche Onset Age Delivery Information Delivery Date Delivery Type Labor Anesthesia Weeks Gestation Incision Type Labor Labor Length Hrs Delivered By Post Complications Tubal Sterilization Discharge Date Comments 0 Discharge Information Feeding Method Contraceptive Method Maternal HG B and HCT Levels
[2024-09-28 02:34] LABS: Vitamin A 32 mcg/dL (38-98)
[2024-09-28 04:33] LABS: Zinc 59 mcg/dL (60-130)
[2024-10-01 06:19] LABS: Vitamin B1 13 nmol/L (8-30)
== END 2024-09-24 13:37 | disposition home or self-care (01) ==
LOC: HO.LAB 13:36
PROVIDERS: PCP Internal Medicine; Visit Provider Physician Assistant Surgical
DX: Z98.84 Bariatric surgery status (principal)
CPT/HCPCS: 36415; 82306; 82607; 82728; 82746; 83540; 84425; 84590; 84630; 85025

== ENCOUNTER 2024-10-14 14:12 | Outpatient (REF) | payer OTHER, SELFPAY | END 2024-10-14 14:13 | disposition home or self-care (01) | LOC: HO.MAMMO 14:12 | PROVIDERS: PCP Internal Medicine; Visit Provider Internal Medicine | DX: Z12.31 Encounter for screening mammogram for malignant neoplasm of breast (principal) | CPT/HCPCS: 77063; 77067 ==

== ENCOUNTER → 2024-10-14 14:45 | Outpatient (BNV) | payer OTHER, SELFPAY | PROVIDERS: PCP Internal Medicine; Visit Provider Internal Medicine | DX: Z12.31 Encounter for screening mammogram for malignant neoplasm of breast (principal) | CPT/HCPCS: 77063; 77067 ==

== ENCOUNTER 2024-11-12 09:44 | Outpatient (AMB) | payer OTHER, SELFPAY ==
--- NOTE | 2024-11-12 09:39 | MHC.OFFVISWM ---
VS Expanded 11/12/24 09:43 Height 5 ft 3 in Weight 187 lb BMI 33.1 Intake Visit Reasons: PHONE PO LSG 04/02/23 Allergies oxycodone [From Percocet] Adverse Reaction (Verified 06/19/23 13:55) Anxiety Medication List - Last Reconciled 11/12/24 by GLAD[facility] blood pressure test kit-large ([employer] Blood Pressure Monitor kit) As directed cholecalciferol (vitamin D3) 1,250 mcg PO QWEEK clotrimazole 1% 1 appl topical BID iron,carbonyl-vitamin C 65 mg iron- 125 mg (Vitron-C) 1 tab PO BEDTIME ondansetron 4 mg PO Q8H PRN vitamin A palmitate 10,000 units PO DAILY Zepbound (tirzepatide (weight loss)) 2.5 mg (0.5 mL) subcut QWEEK 4 weeks NS HPI Comments Details: This?is a?49?yo F who is s/p LSG 04/02/2023. Presents for 20 month post op visit. Weight loss of 4lbs since last OV 6w ago. Pt continues to report nausea/vomiting with certain foods. When she eats rice this happens. I asked if she has this problem with water and she states yes when I drink too much. When she drinks with a straw she also has problems. Present meal plan includes: egg for breakfast, 2 shakes 4:1 with 2 scoops each (or can do one of the shakes with 1 scoop powder and 1 jordanian yogurt to make a smoothie), 1 Zone bar recommended at last visit- pt reports trying to follow this plan closely hair/skin/nails supplement for hair loss taking iron also, interested in iron infusions Exercise routine includes: gym- has increased her exercise since last visit Pt reports problems of excess skin of abdomen. Pt has noticed itchy rashes starting to occur. Has moisture collecting in umbilius which has an unpleasant smell. Has had to wear a binder to hold excess skin in place; excess skin is very heavy and causes her posture to suffer. Difficult to exercise to full capacity due to discomfort. Pt also reports problems of excess skin of upper arms. Starting to get rashes due to friction of skin rubbing against her body. Has tried compressive arms sleeves to hold skin in place. Walking is more difficult due to arm swing and worsening friction. Difficult to exercise due to friction. PFSH Medical History Sleep apnea Morbid obesity Hypertension Surgical History S/P laparoscopic sleeve gastrectomy Hx of right knee surgery Hx of umbilical hernia repair Hx of appendectomy Hx of section Family History Mother No problems noted. Father Cancer Sister No problems noted. Sister No problems noted. Son No problems noted. Son No problems noted. Son No problems noted. Daughter No problems noted. Social History Household Members: Family Housing: Apartment Are you a primary aged or disabled care worker to a significant other at home: No Do you presently have visiting nurse or other home services: No Alcohol intake: never Patient Tobacco Use Status: Never used Tobacco Tobacco use type: Cigarette e-Cigarette/Vaping Use: Never Used Second Hand Smoke Exposure: No service: No Current occupational status: unemployed Cognitive needs: No Hearing needs: No Vision needs: Yes (glasses) Telehealth Telehealth Telehealth Platform: Telephone Location of provider rendering services: other Location of patient: address on file Patient Identification confirmed using: Name, : Yes Telehealth method: voice only Patient verbally consented to treatment: Yes Patient verbally consented to billing insurance company: Yes Patient informed of any privacy concerns related to visit: Yes Minutes spent on Phone/Video with Pt.: 16 Assessment & Plan Assessment & Plan (1) Obesity: Code(s): E66.9 - Obesity, unspecified Category: Medical (2) S/P laparoscopic sleeve gastrectomy: Code(s): Z98.84 - Bariatric surgery status Category: Medical Plan We discussed eating behaviors- slowing down pace of eating, smaller bites/sips, eating the proper foods. Unclear if pt understands that her current eating habits are likely the cause of her N/V. I do not think she has an anatomical problem with her stomach as it seems her symptoms occur when she does not eat/drink properly. I asked her to send me a photo of her plate of food next time she makes a meal so I can provide feedback. She requested vit D weekly. Can reach out to PCP if she is interested in iron infusions (has had low blood counts since prior to surgery with us). She is interested in self pay option for Zepbound. Sent Rx and let her know our RN would be in touch. RTC 3mo. Medications: New cholecalciferol (vitamin D3) 1,250 mcg PO QWEEK 52 caps 0RF Zepbound (tirzepatide (weight loss)) 2.5 mg (0.5 mL) subcut QWEEK 2 mL 0RF 4 weeks NS ondansetron 4 mg PO Q8H PRN 30 tabs 1RF nausea and vomiting Discontinued cholecalciferol (vitamin D3) Discontinued Reason: Doctor's Order 50 mcg PO DAILY 90 caps 3RF Zepbound (tirzepatide (weight loss)) for 4 weeks Discontinued Reason: Doctor's Order 2.5 mg (0.5 mL) subcut QWEEK 2 mL 0RF NS
[2024-11-12 09:43] VITALS: BMI 33.1
== END 2024-11-12 10:01 | disposition home or self-care (01) ==
LOC: HO.HBS 09:44
PROVIDERS: PCP Internal Medicine; Visit Provider Physician Assistant Surgical
DX: E66.9 Obesity, unspecified (principal); Z98.84 Bariatric surgery status
CPT/HCPCS: 99214; G2211

== ENCOUNTER → 2024-11-12 09:44 | Outpatient (BNVA) | payer OTHER, SELFPAY | PROVIDERS: PCP Internal Medicine; Visit Provider Physician Assistant Surgical ==

== ENCOUNTER 2024-12-15 13:27 | Outpatient (REF) | payer OTHER, SELFPAY ==
--- NOTE | ~2024-12-15 | MM_ITS ---
EXAMINATION: MM DIAGNOSTIC DIGITAL BREAST TOMOSYNTHESIS, RIGHT Limited right breast ultrasound. CLINICAL INFORMATION: Back from screening for asymmetry in the superior right breast on MLO view middle depth. COMPARISON: Mammography: [facility] on PACS. TECHNIQUE: Digital breast tomosynthesis is performed in both the craniocaudal and mediolateral oblique views along with computer-aided detection (CAD). Synthesized 2D images are generated from the tomosynthesis. FINDINGS: There are scattered areas of fibroglandular density (ACR BI-RADS breast composition Category b). Asymmetry superior right breast middle depth on MLO view partially effaces on additional imaging projections. Suspicious calcifications or other abnormal findings. Targeted color Doppler ultrasound scanning in the superior and outer right breast from 10-1 o'clock demonstrates an incidental hypoechoic oval circumscribed probable minimally complicated cysts versus solid mass at 9:00 7 cm from the nipple measuring 6 x 3 x 7 mm. Otherwise there is normal fibronodular breast tissue. MM/MM tomosynthesis added views R IMPRESSION: Asymmetry superior right breast middle depth on MLO view partially effaces and without sonographic correlate this could be related to patient's recent weight loss. Recommend six-month follow-up mammography for further evaluation of stability. Hypoechoic circumscribed solid mass versus complicated cyst at 9:00 7 cm from the nipple on ultrasound. Recommend 6 month follow-up for further evaluation of stability. ASSESSMENT: BI-RADS BI-RADS 3 - Probably benign finding(s) - 6 month follow-up suggested RECOMMENDATION: 6 Month F/U Results were provided to the patient at time of visit by the technologist. This patient's information was entered into a reminder system with a target due date for their next mammogram. Electronically signed by: Mari Soto DO 12/15/2024 02:27 PM EDT
== END 2024-12-15 13:28 | disposition home or self-care (01) ==
LOC: HO.MAMMO 13:27
PROVIDERS: PCP Internal Medicine; Visit Provider Internal Medicine
DX: N64.89 Other specified disorders of breast (principal)
CPT/HCPCS: 76642; 77061; 77065

== ENCOUNTER 2025-02-05 10:15 | Outpatient (AMB) | payer OTHER, SELFPAY ==
--- NOTE | 2025-02-05 10:11 | A.OFFVIS_ITS ---
VS Expanded 02/05/25 10:14 Height 5 ft 3 in Weight 175 lb BMI 31.0 Intake Visit Reasons: TELEPHONE PO LSG 03/23/23 Allergies oxycodone (From Percocet) Adverse Reaction (Verified 06/19/23 13:55) Anxiety Medication List - Last Reconciled 02/05/25 by GLADYS Sky blood pressure test kit-large ([employer] Blood Pressure Monitor kit) As directed cholecalciferol (vitamin D3) 1,250 mcg PO QWEEK clotrimazole 1% 1 appl topical BID iron,carbonyl-vitamin C 65 mg iron- 125 mg (Vitron-C) 1 tab PO BEDTIME ondansetron 4 mg PO Q8H PRN tirzepatide (weight loss) (Zepbound) 2.5 mg (0.5 mL) subcut QWEEK 4 weeks vitamin A palmitate 10,000 units PO DAILY HPI Comments Details: This?is a?49?yo F who is s/p LSG 03/23/2023. Presents for 23 month post op visit. Weight at last visit on 11/12/2024 was 187lbs. Weight today is 175 pounds, representing a 12 pound weight loss with a BMI today of 31.? No complaints of nausea, emesis, abdominal pain or reflux, or constipation. She continues on Zepbound, lowest dose- holt pay. Present meal plan includes: egg for breakfast, 2 shakes 4:1 with 2 scoops each (or can do one of the shakes with 1 scoop powder and 1 pashto yogurt to make a smoothie), 1 Zone bar recommended at last visit- pt reports trying to follow this plan closely hair/skin/nails supplement for hair loss taking iron also Exercise routine includes: gym- not consistent; uses her bike at home but plans to go back to gym next week Pt reports problems of excess skin of abdomen. Pt has noticed itchy rashes starting to occur. Has moisture collecting in umbilius which has an unpleasant smell. Has had to wear a binder to hold excess skin in place; excess skin is very heavy and causes her posture to suffer. Difficult to exercise to full capacity due to discomfort. Pt also reports problems of excess skin of upper arms. Starting to get rashes due to friction of skin rubbing against her body. Has tried compressive arms sleeves to hold skin in place. Walking is more difficult due to arm swing and worsening friction. Difficult to exercise due to friction. PFSH Medical History Sleep apnea Morbid obesity Hypertension Surgical History S/P laparoscopic sleeve gastrectomy Hx of right knee surgery Hx of umbilical hernia repair Hx of appendectomy Hx of section Family History Mother No problems noted. Father Cancer Sister No problems noted. Sister No problems noted. Son No problems noted. Son No problems noted. Son No problems noted. Daughter No problems noted. Social History Household Members: Family Housing: Apartment Are you a primary career technical education teacher to a significant other at home: No Do you presently have visiting nurse or other home services: No Alcohol intake: never Patient Tobacco Use Status: Never used Tobacco Tobacco use type: Cigarette e-Cigarette/Vaping Use: Never Used Second Hand Smoke Exposure: No service: No Current occupational status: unemployed Cognitive needs: No Hearing needs: No Vision needs: Yes (glasses) Telehealth Telehealth Telehealth Platform: Telephone Location of provider rendering services: practice address Location of patient: address on file Patient Identification confirmed using: Name, : Yes Telehealth method: voice only Patient verbally consented to treatment: Yes Patient verbally consented to billing insurance company: Yes Patient informed of any privacy concerns related to visit: Yes Minutes spent on Phone/Video with Pt.: 15 Assessment & Plan Assessment & Plan (1) S/P laparoscopic sleeve gastrectomy: Code(s): Z98.84 - Bariatric surgery status Category: Surgical (2) Obesity: Code(s): E66.9 - Obesity, unspecified Category: Medical (3) Excess skin: Code(s): L98.7 - Excessive and redundant skin and subcutaneous tissue Category: Medical Plan Pt doing well on low dose Zepbound. She elected to continue at lowest dose for this month and will consider increasing at next refill, however cost is somewhat prohibitive for her. She is also interested in plastics consult for excess skin once BMI < 30. Once she reaches 168-169lbs she will text me. Will be due for 2 year labs next month, ordered. RTC 6mo. Pt will continue to text me with any questions in the meantime. Orders: Orders Vitamin D 25-OH Total Today Z98.84 - Bariatric surgery status Ferritin Today Z98.84 - Bariatric surgery status Vitamin B1 Today Z98.84 - Bariatric surgery status Lipid Panel Today Z98.84 - Bariatric surgery status IRON PROFILE Today Z98.84 - Bariatric surgery status TSH reflex Free T4 Today Z98.84 - Bariatric surgery status C Reactive Protein Today Z98.84 - Bariatric surgery status Vitamin A Today Z98.84 - Bariatric surgery status Zinc Today Z98.84 - Bariatric surgery status Vitamin B12 and Folate Today Z98.84 - Bariatric surgery status Comprehensive Met. Panel Today Z98.84 - Bariatric surgery status Complete Blood Count Auto Diff Today Z98.84 - Bariatric surgery status Hemoglobin A1c Today Z98.84 - Bariatric surgery status Insulin Today Z98.84 - Bariatric surgery status
[2025-02-05 10:14] VITALS: BMI 31.0
== END 2025-02-05 10:30 | disposition home or self-care (01) ==
LOC: HO.HBS 10:15
PROVIDERS: PCP Physician Assistant Medical; Visit Provider Physician Assistant Surgical
DX: L98.7 Excessive and redundant skin and subcutaneous tissue (principal); E66.9 Obesity, unspecified; Z68.31 Body mass index [BMI] 31.0-31.9, adult; Z90.3 Acquired absence of stomach [part of]; Z98.84 Bariatric surgery status
CPT/HCPCS: 98013

== ENCOUNTER → 2025-02-05 10:15 | Outpatient (BNVA) | payer OTHER, SELFPAY | PROVIDERS: PCP Physician Assistant Medical; Visit Provider Physician Assistant Surgical | DX: E66.9 Obesity, unspecified (principal); Z68.31 Body mass index [BMI] 31.0-31.9, adult; Z98.84 Bariatric surgery status; L98.7 Excessive and redundant skin and subcutaneous tissue; Z79.85 Long-term (current) use of injectable non-insulin antidiabetic drugs ==

== ENCOUNTER 2025-02-08 13:03 | Outpatient (AMB) | payer OTHER, SELFPAY ==
[2025-02-08 13:13] VITALS: BP 122/62; PULSE 88; RESP 18; TEMP 36.3; O2SAT 99; BMI 31.2
--- NOTE | 2025-02-08 13:13 | A.OFFPC_ITS ---
Vital Signs 02/08/25 13:13 Height 5 ft 3 in Weight 176 lb BMI 31.2 BP 122/62 Blood Pressure Location Lt brachial Position Sitting Respiration 18 Pulse 88 Pulse Source Pulse Oximeter Temp 97.3 F Temp Source Temporal Artery Scan Pulse Oximetry (%) 99 Oxygen Delivery Method Room Air Intake Visit Reasons: Follow Up PHQ-9 needed. 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 Accompanied by: Self / Same As Patient Allergies oxycodone (From Percocet) Adverse Reaction (Verified 02/08/25 13:24) Anxiety Medication List - Last Reconciled 02/08/25 by WENDI Stone blood pressure test kit-large ([employer] Blood Pressure Monitor kit) As directed cholecalciferol (vitamin D3) 1,250 mcg PO QWEEK clotrimazole 1% 1 appl topical BID iron,carbonyl-vitamin C 65 mg iron- 125 mg (Vitron-C) 1 tab PO BEDTIME ondansetron 4 mg PO Q8H PRN tirzepatide (weight loss) (Zepbound) 2.5 mg (0.5 mL) subcut QWEEK 4 weeks vitamin A palmitate 10,000 units PO DAILY Tobacco use date assessed: 02/08/25 Dental Screening Dental Screen Date: 02/08/25 Did you have a dental visit in the last 12 months?: Yes Did you have a dental problem in the last 6 months where you did not have access to dental care?: No Was dental information given to patient?: Patient has dentist [facility] Medical History Sleep apnea Morbid obesity Hypertension Surgical History S/P laparoscopic sleeve gastrectomy Hx of right knee surgery Hx of umbilical hernia repair Hx of appendectomy Hx of section Family History Mother No problems noted. Father Cancer Sister No problems noted. Sister No problems noted. Son No problems noted. Son No problems noted. Son No problems noted. Daughter No problems noted. Social History Household Members: Family Housing: Apartment Are you a primary medical care evaluation specialist to a significant other at home: No Do you presently have visiting nurse or other home services: No Alcohol intake: never Patient Tobacco Use Status: Never used Tobacco Tobacco use type: Cigarette e-Cigarette/Vaping Use: Never Used Second Hand Smoke Exposure: No service: No Current occupational status: unemployed Cognitive needs: No Hearing needs: No Vision needs: Yes (glasses) Questionnaire PHQ-9 Over the last 2 weeks, how often have you been bothered by any of the following problems? 1. Little interest or pleasure in doing things: not at all 2. Feeling down, depressed, or hopeless: not at all 3. Trouble falling or staying asleep, or sleeping too much: not at all 4. Feeling tired or having little energy: not at all 5. Poor appetite or overeating: not at all 6. Feeling bad about yourself - or that you are a failure or have let yourself or your family down: not at all 7. Trouble concentrating on things, such as reading the newspaper or watching television: not at all 8. Moving or speaking so slowly that other people could have noticed. Or the opposite - being so fidgety or restless that you have been moving around a lot more than usual: not at all 9. Thoughts that you would be better off or of hurting yourself in some way: not at all Total score: 0 Source: Developed by Drs. Ulices Saucedo, Rebecca Appiah, Kasi Smith and colleagues, with an educational juju from [employer]. Thrive Questionnaire Date Thrive assessed: 02/08/25 I am a: Patient What is your living situation today?: I have a steady place to live Within the past 12 months, did the food you bought not last and you didn't have the money to get more?: Often true Within the past 12 months, did you worry whether your food would run out before you got money to buy more?: Never true Do you have trouble paying for medicines?: No Do you have trouble getting transportation to medical appointments?: No Do you have trouble paying your heating and electricity bill?: No Do you have trouble taking care of your child, family member or friend?: No Do you have trouble with day-to-day activities such as bathing, preparing meals, shopping, managing finances, etc.?: No Are you currently unemployed and looking for a job?: No Are you interested in more education?: No Please select the resources that you would like help with: None Currently or been in a relationship where the following occur: I choose not to answer THRIVE Score: 1 AUDIT C Alcohol Use Questionnaire (AUDIT-C) 1. How often do you have a drink containing alcohol?: Monthly or less 2. How many drinks containing alcohol do you have on a typical day when you are drinking?: 1 or 2 3. How often do you have six or more drinks on one occasion?: Never Total Score: 1 NEREIDA-7 AMB Questionnaire NEREIDA-7 Date NEREIDA - 7 assessed: 02/08/25 Feeling nervous, anxious, or on edge: 0 = Not at all Not being able to stop or control worryin = Not at all Worrying too much about different things: 0 = Not at all Trouble relaxin = Not at all Being so restless that it is hard to sit still: 0 = Not at all Becoming easily annoyed or irritable: 0 = Not at all Feeling afraid as if something awful might happen: 0 = Not at all Total NEREIDA-7 score (0-4 normal; 5-9 mild; 10-14 moderate; 15-21 severe): 0 Source: Developed by Drs. Ulices Saucedo, Rebecca Appiah, Kasi Smith and colleagues, with an educational juju from [employer]. Physical exam (Primary Care) Vital Signs: Last Vital Signs Temp 97.3 F 02/08/25 13:13 Pulse 88 02/08/25 13:13 Resp 18 02/08/25 13:13 BP 122/62 02/08/25 13:13 Pulse Ox 99 02/08/25 13:13 Oxygen Delivery Method Room Air 02/08/25 13:13 BMI result Body Mass Index 31.2 Tobacco/Smoking Status: Tobacco use Status Tobacco use date assessed 02/08/25 02/08/25 13:31 Patient Tobacco Use Status Never used Tobacco 02/08/25 13:31 Tobacco use type Cigarette 02/08/25 13:31 e-Cigarette/Vaping Use Never Used 02/08/25 13:31 PHQ-9: PHQ-9 Score PHQ-9: Total score 0 02/08/25 16:25 Thrive Assessment: Date of Thrive Assessment Date Thrive assessed 02/08/25 02/08/25 13:31 Currently or been in a relationship where the following occur: I choose not to answer Coding Assessment & Plan Assessment & Plan Orders: Orders UA CC w/rflx Micro + Cult Today E66.01 - Morbid (severe) obesity due to excess calories, E66.3 - Overweight, G47.30 - Sleep apnea, unspecified, K74.00 - Hepatic fibrosis, unspecified, Z98.84 - Bariatric surgery status Vitamin D 25-OH Total Today E66.01 - Morbid (severe) obesity due to excess calories, E66.3 - Overweight, G47.30 - Sleep apnea, unspecified, K74.00 - Hepatic fibrosis, unspecified, Z98.84 - Bariatric surgery status Comprehensive [place]. Panel Fast Today E66.01 - Morbid (severe) obesity due to excess calories, E66.3 - Overweight, G47.30 - Sleep apnea, unspecified, K74.00 - Hepatic fibrosis, unspecified, Z98.84 - Bariatric surgery status TSH reflex Free T4 Today E66.01 - Morbid (severe) obesity due to excess calories, E66.3 - Overweight, G47.30 - Sleep apnea, unspecified, K74.00 - Hepatic fibrosis, unspecified, Z98.84 - Bariatric surgery status
--- NOTE | 2025-02-08 13:24 | MHC.PC.OV ---
Vital Signs 02/08/25 13:13 Height 5 ft 3 in Weight 176 lb BMI 31.2 BP 122/62 Blood Pressure Location Lt brachial Position Sitting Respiration 18 Pulse 88 Pulse Source Pulse Oximeter Temp 97.3 F Temp Source Temporal Artery Scan Pulse Oximetry (%) 99 Oxygen Delivery Method Room Air Intake Visit Reasons: Follow Up PHQ-9 needed. Allergies oxycodone (From Percocet) Adverse Reaction (Verified 02/08/25 13:24) Anxiety Medication List - Last Reconciled 02/08/25 by WENDI Stone blood pressure test kit-large ([employer] Blood Pressure Monitor kit) As directed cholecalciferol (vitamin D3) 1,250 mcg PO QWEEK clotrimazole 1% 1 appl topical BID iron,carbonyl-vitamin C 65 mg iron- 125 mg (Vitron-C) 1 tab PO BEDTIME ondansetron 4 mg PO Q8H PRN tirzepatide (weight loss) (Zepbound) 2.5 mg (0.5 mL) subcut QWEEK 4 weeks vitamin A palmitate 10,000 units PO DAILY Tobacco use date assessed: 02/08/25 Dental Screening Dental Screen Date: 02/08/25 Did you have a dental visit in the last 12 months?: Yes Did you have a dental problem in the last 6 months where you did not have access to dental care?: No Was dental information given to patient?: Patient has dentist HPI Follow Up PHQ-9 needed. HPI Details Dentist: up to date Eye: up to date Snellen: Right: Left: Corrected vision: glasses STI screening: Colonoscopy: due reports that they found polyps and her next colonoscopy is due mammogram: up to date, they found a right superior breast to be asymmetric; plans to follow up in six-month Pap Smer: appt 04/15/[address] Allen PHQ-9: Flu: She does not take this annually COVID: x2 Tdap: she cannot remember when she had this but beliefs that it is within 10 years Diet: Watching what she eats to lose weight because she wants to do skin removal surgery and she just need to lose a few more pounds to be qualified Exercise: exercise infrequently PFSH Medical History Sleep apnea Morbid obesity Hypertension Surgical History S/P laparoscopic sleeve gastrectomy Hx of right knee surgery Hx of umbilical hernia repair Hx of appendectomy Hx of section Family History Mother No problems noted. Father Cancer Sister No problems noted. Sister No problems noted. Son No problems noted. Son No problems noted. Son No problems noted. Daughter No problems noted. Social History Household Members: Family Housing: Apartment Are you a primary manager intensive care to a significant other at home: No Do you presently have visiting nurse or other home services: No Alcohol intake: never Patient Tobacco Use Status: Never used Tobacco Tobacco use type: Cigarette e-Cigarette/Vaping Use: Never Used Second Hand Smoke Exposure: No service: No Current occupational status: unemployed Cognitive needs: No Hearing needs: No Vision needs: Yes (glasses) Questionnaire PHQ-9 Over the last 2 weeks, how often have you been bothered by any of the following problems? 1. Little interest or pleasure in doing things: not at all 2. Feeling down, depressed, or hopeless: not at all 3. Trouble falling or staying asleep, or sleeping too much: not at all 4. Feeling tired or having little energy: not at all 5. Poor appetite or overeating: not at all 6. Feeling bad about yourself - or that you are a failure or have let yourself or your family down: not at all 7. Trouble concentrating on things, such as reading the newspaper or watching television: not at all 8. Moving or speaking so slowly that other people could have noticed. Or the opposite - being so fidgety or restless that you have been moving around a lot more than usual: not at all 9. Thoughts that you would be better off or of hurting yourself in some way: not at all Total score: 0 Depression Screening Interpretation: Negative Depression Screening Done: Yes 38552 - PHQ-9 Billing: Yes Source: Developed by Drs. Ulices Saucedo, Rebecca Appiah, Kasi Smith and colleagues, with an educational juju from [employer]. Thrive Questionnaire Date Thrive assessed: 02/08/25 I am a: Patient What is your living situation today?: I have a steady place to live Within the past 12 months, did the food you bought not last and you didn't have the money to get more?: Often true Within the past 12 months, did you worry whether your food would run out before you got money to buy more?: Never true Do you have trouble paying for medicines?: No Do you have trouble getting transportation to medical appointments?: No Do you have trouble paying your heating and electricity bill?: No Do you have trouble taking care of your child, family member or friend?: No Do you have trouble with day-to-day activities such as bathing, preparing meals, shopping, managing finances, etc.?: No Are you currently unemployed and looking for a job?: No Are you interested in more education?: No Please select the resources that you would like help with: None Currently or been in a relationship where the following occur: I choose not to answer THRIVE Score: 1 AUDIT C Alcohol Use Questionnaire (AUDIT-C) 1. How often do you have a drink containing alcohol?: Monthly or less 2. How many drinks containing alcohol do you have on a typical day when you are drinking?: 1 or 2 3. How often do you have six or more drinks on one occasion?: Never Total Score: 1 NEREIDA-7 AMB Questionnaire NEREIDA-7 Date NEREIDA - 7 assessed: 02/08/25 Feeling nervous, anxious, or on edge: 0 = Not at all Not being able to stop or control worryin = Not at all Worrying too much about different things: 0 = Not at all Trouble relaxin = Not at all Being so restless that it is hard to sit still: 0 = Not at all Becoming easily annoyed or irritable: 0 = Not at all Feeling afraid as if something awful might happen: 0 = Not at all Total NEREIDA-7 score (0-4 normal; 5-9 mild; 10-14 moderate; 15-21 severe): 0 Source: Developed by Drs. Ulices Saucedo, Rebecca Appiah, Kasi Smith and colleagues, with an educational juju from [employer]. NEREIDA-7 Assessment Billing NEREIDA-7 Assessment Tool: NEREIDA-7 Assessment 52343 Review of Systems Const Denies headache(s) Eyes Denies loss of vision ENT Denies vertigo, Denies dizziness, Denies headache(s) and Denies sore throat Card Denies chest pain, Denies leg edema and Denies lightheadedness Resp Denies cough, Denies hemoptysis and Denies wheezing GI Denies abdominal pain, Denies melena, Denies constipation, Denies diarrhea and Denies vomiting Denies urinary frequency, Denies dysuria and Denies urinary urgency Musc Reports arthralgias (left shoulder pain radiating down her arm), Denies joint swelling, Denies numbness, Reports stiffness (left hip) and Denies tingling Neuro Denies Abnormal speech present, Denies behavioral changes, Denies vertigo, Denies dizziness, Denies headache(s), Denies loss of vision, Denies memory loss, Denies numbness and Denies tingling Psych Denies anxiety, Denies behavioral changes, Denies depression, Denies memory loss and Denies panic attacks Gregory/Lymph Denies easy bleeding and Denies easy bruising Aller/Immun Denies wheezing Physical exam (Primary Care) Vital Signs: Last Vital Signs Temp 97.3 F 02/08/25 13:13 Pulse 88 02/08/25 13:13 Resp 18 02/08/25 13:13 BP 122/62 02/08/25 13:13 Pulse Ox 99 02/08/25 13:13 Oxygen Delivery Method Room Air 02/08/25 13:13 BMI result Body Mass Index 31.2 Tobacco/Smoking Status: Tobacco use Status Tobacco use date assessed 02/08/25 02/08/25 13:31 Patient Tobacco Use Status Never used Tobacco 02/08/25 13:31 Tobacco use type Cigarette 02/08/25 13:31 e-Cigarette/Vaping Use Never Used 02/08/25 13:31 PHQ-9: PHQ-9 Score PHQ-9: Total score 0 02/08/25 17:13 Depression Screening Interpretation: Negative Thrive Assessment: Date of Thrive Assessment Date Thrive assessed 02/08/25 02/08/25 13:31 Currently or been in a relationship where the following occur: I choose not to answer Const General: healthy appearing, no acute distress, alert and awake Nutritional Appearance: well nourished Orientation/consciousness: oriented to person, oriented to place and oriented to time HENMT Ears: TM's normal bilaterally General nose exam: Normal nasal mucous membranes and turbinates present Eyes Conjunctivae: conjunctivae normal Sclerae: sclerae normal Pupils: Equal, round and reactive pupils present Neck Neck: Yes no lymphadenopathy and Yes no JVD Thyroid: Thyroid normal Carotids: no bruits Resp Effort & Inspection: normal respiratory effort and not tachypneic Auscultation: no crackles, no rales, no rhonchi and no wheezes Cardio Rate: regular rate Rhythm: regular rhythm Heart sounds: no murmurs and normal S1 and S2 GI Palpation (GI): Soft to palpation, nontender, no hepatomegaly and no splenomegaly Auscultation: normal bowel sounds Skin General skin exam: no rashes or lesions noted and dry skin Neuro General: oriented to person, oriented to place and oriented to time Cranial nerves: Yes Equal, round and reactive pupils present Speech: No Abnormal speech present Gait exam (Neuro): Normal gait present Motor exam (neuro): no tremor noted Extrem Right upper extremity: full ROM Left upper extremity: full ROM and shoulder/upper arm Details: tenderness (over left trapezius) and abnormal ROM Details: pain with active ROM Right lower extremity: full ROM; no edema Left lower extremity: full ROM; no edema Psych Mental Status: mental status grossly normal Speech and movement: Normal speech and movement present Affect: normal affect Attitude: cooperative Thought process: Normal thought process present Coding Level of Care Code Est Pt Prev Care 40-64y(03009) Diagnoses Annual physical exam Z00.00 Hypertension, unspecified type I10 Hypertension type: unspecified Excess skin L98.7 Sleep apnea, unspecified type G47.30 Sleep apnea type: unspecified type Iron deficiency anemia secondary to inadequate dietary iron intake D50.8 Anemia type: iron deficiency Iron deficiency anemia type: inadequate dietary iron intake Gastroesophageal reflux disease, unspecified whether esophagitis present K21.9 Esophagitis presence: esophagitis presence not specified S/P laparoscopic sleeve gastrectomy Z98.84 Left atrial dilation I51.7 Class 1 obesity without serious comorbidity with body mass index (BMI) of 31.0 to 31.9 in adult, unspecified obesity type E66.811; Z68.31 Obesity type: unspecified obesity type Obesity classification: adult class 1 (BMI 30 - 34.9) Serious obesity comorbidity presence: without serious comorbidity Body mass index: BMI 31.0-31.9 Left shoulder pain, unspecified chronicity M25.512 Chronicity: unspecified Additional Codes PHQ-9 - 20848 - PHQ-9 Billing: Yes ([id number]) NEREIDA-7 Assessment Billing - NEREIDA-7 Assessment Tool: NEREIDA-7 Assessment 65882 ([id number]) Time Spent (min) 38 Assessment & Plan Assessment & Plan (1) Annual physical exam: Code(s): Z00.00 - Encounter for general adult medical examination without abnormal findings Category: Medical Plan: Preventative guidelines reviewed with the patient. Labs ordered for the patient to complete as soon as possible. GI referral placed for colonoscopy. Patient is up-to-date on her mammogram which showed asymmetric right superior breast region, plans to repeat imaging in six-month. Patient has a schedule for a Pap smear on 04/15/[address] Allen. (2) Hypertension: Code(s): I10 - Essential (primary) hypertension Category: Medical Qualifiers: Hypertension type: unspecified Qualified Code(s): I10 - Essential (primary) hypertension Plan: Blood pressure 122/62 Reinforced low-salt diet (3) Excess skin: Code(s): L98.7 - Excessive and redundant skin and subcutaneous tissue Category: Medical Plan: Status post gastric sleeves and weight loss we will residual of extra skin on abdomen. The patient to continue losing weight for follow up surgery to remove extra skin. (4) Sleep apnea: Code(s): G47.30 - Sleep apnea, unspecified Category: Medical Qualifiers: Sleep apnea type: unspecified type Qualified Code(s): G47.30 - Sleep apnea, unspecified Plan: Patient reports that she no longer has sleep apnea after her weight loss. (5) Anemia: Code(s): D64.9 - Anemia, unspecified Category: Medical Qualifiers: Anemia type: iron deficiency Iron deficiency anemia type: inadequate dietary iron intake Qualified Code(s): D50.8 - Other iron deficiency anemias Plan: Chart reviewed showed chronic anemia. Continue iron supplement, we will repeat CBC and iron panel to further evaluate. (6) GERD (gastroesophageal reflux disease): Code(s): K21.9 - Gastro-esophageal reflux disease without esophagitis Category: Medical Qualifiers: Esophagitis presence: esophagitis presence not specified Qualified Code(s): K21.9 - Gastro-esophageal reflux disease without esophagitis Plan: Do not eat meals or drink carbonated beverages within 3 hr of bedtime Decrease the amount of fried, fatty, and spicy foods to decrease gastric acid production Raise the head of the bed using 4 to 6-inch blocks, especially if nocturnal symptoms are present Lose weight if indicated; avoid tight-fitting clothing, especially around the waist Avoid foods that relax the Lower esophageal sphincter (chocolate, peppermint, high-fat foods etc.,) (7) S/P laparoscopic sleeve gastrectomy: Code(s): Z98.84 - Bariatric surgery status Category: Surgical Plan: Continue with diet plan including recommended vitamins. (8) Left atrial dilation: Code(s): I51.7 - Cardiomegaly Category: Medical Plan: Echo on 12/10/2022 showed normal LV systolic function with left ventricle EF of 60 to 65%. Mildly dilated left atrium. Interatrial shunt can not be excluded. Right atrium is slightly dilated. Patient denies shortness of breath or pain with exertion (9) Obesity: Code(s): E66.9 - Obesity, unspecified Category: Medical Qualifiers: Obesity type: unspecified obesity type Obesity classification: adult class 1 (BMI 30 - 34.9) Serious obesity comorbidity presence: without serious comorbidity Body mass index: BMI 31.0-31.9 Qualified Code(s): E66.811 - Obesity, class 1; Z68.31 - Body mass index [BMI] 31.0-31.9, adult Plan: Continue diet modification and activity as tolerated to aid in losing weight. Continues up bone 2.5 mg subcu q.weekly (10) Left shoulder pain: Code(s): M25.512 - Pain in left shoulder Category: Medical Qualifiers: Chronicity: unspecified Qualified Code(s): M25.512 - Pain in left shoulder Plan: PT referral placed Orders: Orders UA CC w/rflx Micro + Cult Today E66.01 - Morbid (severe) obesity due to excess calories, E66.3 - Overweight, G47.30 - Sleep apnea, unspecified, K74.00 - Hepatic fibrosis, unspecified, Z98.84 - Bariatric surgery status Vitamin D 25-OH Total Today E66.01 - Morbid (severe) obesity due to excess calories, E66.3 - Overweight, G47.30 - Sleep apnea, unspecified, K74.00 - Hepatic fibrosis, unspecified, Z98.84 - Bariatric surgery status PT Evaluation and Treatment Today M25.512 - Pain in left shoulder Comprehensive Holder. Panel Fast Today E66.01 - Morbid (severe) obesity due to excess calories, E66.3 - Overweight, G47.30 - Sleep apnea, unspecified, K74.00 - Hepatic fibrosis, unspecified, Z98.84 - Bariatric surgery status TSH reflex Free T4 Today E66.01 - Morbid (severe) obesity due to excess calories, E66.3 - Overweight, G47.30 - Sleep apnea, unspecified, K74.00 - Hepatic fibrosis, unspecified, Z98.84 - Bariatric surgery status Referrals Gastroenterology Referral Z12.11 - Encounter for screening for malignant neoplasm of colon, Z12.12 - Encounter for screening for malignant neoplasm of rectum
== END 2025-02-08 13:50 | disposition home or self-care (01) ==
LOC: HO.HMCH 13:03
PROVIDERS: PCP Physician Assistant Medical; Visit Provider Physician Assistant Medical
DX: Z00.00 Encounter for general adult medical examination without abnormal findings (principal); I10 Essential (primary) hypertension; M25.512 Pain in left shoulder; L98.7 Excessive and redundant skin and subcutaneous tissue; G47.30 Sleep apnea, unspecified; D50.8 Other iron deficiency anemias; K21.9 Gastro-esophageal reflux disease without esophagitis; Z98.84 Bariatric surgery status; I51.7 Cardiomegaly; E66.811 Obesity, class 1; Z68.31 Body mass index [BMI] 31.0-31.9, adult

== ENCOUNTER → 2025-02-08 13:03 | Outpatient (BNVA) | payer OTHER, SELFPAY | PROVIDERS: PCP Physician Assistant Medical; Visit Provider Physician Assistant Medical | DX: Z00.00 Encounter for general adult medical examination without abnormal findings (principal); I11.9 Hypertensive heart disease without heart failure; L98.7 Excessive and redundant skin and subcutaneous tissue; G47.30 Sleep apnea, unspecified; D50.8 Other iron deficiency anemias; K21.9 Gastro-esophageal reflux disease without esophagitis; E66.811 Obesity, class 1; M25.512 Pain in left shoulder; Z68.31 Body mass index [BMI] 31.0-31.9, adult; Z98.84 Bariatric surgery status | CPT/HCPCS: 96127; 99396 ==

== ENCOUNTER 2025-03-30 10:35 | Outpatient (REF) | payer OTHER, SELFPAY ==
[2025-03-30 11:02] LABS: MANUAL DIFF FLAG NO
[2025-03-30 11:40] LABS: Hematocrit 30.5 % (37.0-47.0); Hemoglobin 9.2 g/dl (12.0-16.0); Imm Gran Abs Auto 0.02 X10*3/uL (0.00-0.03); Imm Gran Pct Auto 0.3 % (0.0-0.4); Lymphocytes Absolute Auto 2.2 X10*3/uL (1.2-4.9); Mean Corpuscular HGB Conc 30.2 g/dl (31.0-35.0); Mean Corpuscular Hemoglobin 23.6 pg (27.0-33.0); Mean Corpuscular Volume 78.2 fL (80.0-98.0); NRBC Abs Auto 0.000 X10*3/uL (0.0-0.012); NRBC Pct Auto 0.0 /100WBC (0.0-0.2); Platelet Count 301 X10*3/uL (160-400); Red Blood Count 3.90 X10*6/uL (4.20-5.50); White Blood Count 6.3 X10*3/uL (4.8-10.8)
[2025-03-30 11:51] LABS: Appearance Urine Cloudy; Glucose Urine UA Negative (Negative); PH 7.0 (5.0-9.0); Specific Gravity - Urine 1.020 (1.005-1.025); UMIC TRIGGER UACC YES
[2025-03-30 11:56] LABS: UACC Culture Trigger YES
[2025-03-30 12:16] LABS: Alanine Aminotransferase 15 U/L (0-31); Albumin Level 4.4 g/dL (3.5-5.0); Alkaline Phosphatase 81 U/L (39-117); Anion Gap 9 (12-20); Aspartate Amino Transferase 23 U/L (5-31); Blood Urea Nitrogen 13 mg/dL (9-16); Calcium 9.4 mg/dL (8.4-10.2); Carbon Dioxide 27 mmol/L (22-29); Chloride 108 mmol/L (96-108); Cholesterol 173 mg/dL (<200); Estimated Glomerular Filt Rate > 60; HDL Cholesterol 53 mg/dL (>40); Iron 21 mcg/dL (30-160); Percent Iron Saturation 6 % (15-50); Potassium 3.6 mmol/L (3.3-5.1); Sodium 140 mmol/L (135-145); Total Iron Binding Capacity 360 mcg/dL (228-428); Total Protein 7.4 g/dL (6.5-8.0); Triglycerides 111 mg/dL (<150); Unsaturated Iron Binding 339 ug/dL
[2025-03-30 12:29] LABS: Ferritin 6 ng/mL (10-250)
[2025-03-30 12:39] LABS: Folate 11.0 ng/mL (> or = 4.0); Vitamin B12 316 pg/mL (200-900)
== END 2025-03-30 10:36 | disposition home or self-care (01) ==
LOC: HO.LAB 10:35
PROVIDERS: Absent Provider Physician Assistant Surgical
DX: E66.01 Morbid (severe) obesity due to excess calories (principal); Z98.84 Bariatric surgery status; K74.00 Hepatic fibrosis, unspecified; G47.30 Sleep apnea, unspecified
CPT/HCPCS: 36415; 80053; 80061; 81001; 82306; 82607; 82728; 82746; 83036; 83525; 83540; 84425; 84443; 84590; 84630; 85025; 86140; 87086; 87088; 87186

== ENCOUNTER 2025-04-16 14:15 | Outpatient (RCR) | payer OTHER, SELFPAY ==
--- NOTE | 2025-04-05 15:01 | MHC.PT.EP ---
[facility] [place] Office [place] Office [place] Office [address] Ney Silverman [address] [phone] F: [phone] F: [phone] F: [phone] F: [phone] Physical Therapy Plan of Care Date of Evaluation: 04/05/25 Date of Surgery: NA Diagnosis: Pain in L shoulder Assessment: Ewelina is a 49 year old female who is referred to PT for pain in L shoulder . She reports of having pain for more than a year. She denies any trauma or falls. On PT examination she presents with TTP over L UT, L levator scap and L shoulder anterior joint line, 8/10 pain in L shoulder which is worse with L SL and over head activities, decreased L shoulder ROM and cervical ROM, decreased L shoulder and scap strength and altered posture. She lives alone and is independent with all ADLS but has pain with using L UE. 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 She would benefit from skilled PT to address the aforementioned impairments and improve tolerance to functional activities. Frequency and Duration: The patient will be seen 2/week for 5 weeks Short Term Goals: 1. Pt will have 50% decrease in pain which will enable her to sleep through the night in 2 weeks 2. Pt will be able to move L shoulder through all planes of motion which will enable her to use to L UE for dressing upper body without pain in 3 weeks Physician'S Aide Goals: 1. Pt will demonstrate an increase in muscle strength by 1 grade which will enable her to perform all ADLS without pain in 5 weeks 2. Pt will be independent with all HEP for symptom management and maintenance following d/c in 5 weeks. Treatment Plan: Modalities to reduce pain, spasms and effusion. Manual therapy to restore motion and function. Therapeutic exercise to improve strength and flexibility. Neuromuscular re-education for posture and balance. Therapeutic activities to return to functional activities of daily living. Electronically signed by: Rabia Mauricio PT DPT Please sign and return to therapist. Thank you for your referral.
--- NOTE | 2025-06-01 14:47 | MHC.PT.DC ---
[facility] [place] Office [place] Office [place] Office [address] [phone] F: [phone] F: [phone] F: [phone] F: [phone] Physical Therapy Discharge Report Diagnosis: Pain in L shoulder Date of Surgery: NA Date of Evaluation: 04/05/25 Date of Discharge: 06/01/25 Treatments to Date: 4 Cancellations to Date: 4 No Shows to Date: 3 Discharge Status: Visit Non-compliance Discharge Summary: Ewelina attended 4 PT visits, then canceled 4 and no showed 3. She is therefore being d/c from PT for non compliance. Electronically signed by: Rabia Mauricio PT DPT Please sign and return to therapist. Thank you for your referral.
== END 2025-06-01 14:48 | disposition home or self-care (01) ==
LOC: HO.PT 14:15
DX: M25.512 Pain in left shoulder (principal)
CPT/HCPCS: 97110; 97140; 97161